=== PATIENT | female | born 1935 | race Caucasian/White ===

== ENCOUNTER 2016-06-27 15:11 | Inpatient (IN) ==
[2016-06-27] MEDS ORDERED: 0.9 % Sodium Chloride 1,000 ML IVC ONE (17:08)
--- NOTE | 2016-06-27 17:16 | Emergency Department Note ---
Disposition Clinical Impression: Anemia due to acute blood loss GI (gastrointestinal hemorrhage) Qualifiers: GI bleed type/associated pathology: unspecified gastrointestinal hemorrhage type Qualified Code(s): K92.2 - Gastrointestinal hemorrhage, unspecified Disposition: Admitted As Inpatient Condition: Good Time of Disposition: 18:40 Recheck wound or abnormal lab - General Chief Complaint: ED Recheck/Abnormal Lab/Rx Stated Complaint: abnormal labs Time Seen by Provider: 06/27/16 16:48 Source: patient Limitations: no limitations Nursing Notes Reviewed: Yes Vital Signs Reviewed: Yes - History of Present Illness HPI Narrative: 80-year-old female with history of diverticulosis currently being treated for diverticulitis presents to the emergency department for evaluation low hemoglobin, weakness, dizziness and shortness of breath. Patient states that she 's had numerous episodes like this in the past. Patient states that she hasn't had to be admitted and had transfusions previously. Patient states she's had multiple endoscopies and colonoscopies in the past 3 years. No one can seem to find exactly where her bleeding is coming from. Patient states that she began having some left lower quadrant abdominal pain and was seen by her PCP who obtained a CT scan which showed acute diverticulitis. Patient states she was started on antibiotics but has continued to have "burgundy colored stools". She denies any black stools or blood clots. She denies any nausea or vomiting. She denies any hematemesis. Patient does report some crampy left lower quadrant abdominal pain. Patient states she was not told how low her hemoglobin was told to come to the emergency department. On arrival, patient is resting comfortably in bed in no acute distress. She is awake, alert and oriented. Conjunctiva are pale. Mucous membranes are moist. Heart regular rate and rhythm. Her abdomen is soft with tenderness noted to the left lower quadrant. Rectal exam to be performed. Labs, type and screen ordered. Pt Subjective Complaint: abnormal lab(s) (Hemoglobin) Initial Visit (ago): day(s) Description of Abnormal Result: Low hemoglobin Symptoms Since Prior Visit: no new symptoms Context: called for abnormal lab result Associated symptoms: shortness of breath, other (Weakness) Treatments prior to arrival: given antibiotics on - Related Data Home Medications Medication Instructions Recorded Confirmed Acetaminophen [Tylenol] 325 mg PO Q6HR PRN 04/10/15 06/27/16 Aspirin Enteric Coated [Aspirin EC] 81 mg PO DAILY 04/10/15 06/27/16 Dexlansoprazole [Dexilant] 60 mg PO DAILY 04/10/15 06/27/16 Docosahexanoic Acid/Epa [Fish Oil 1,000 mg PO DAILY 04/10/15 06/27/16 Concentrate Softgel] Gabapentin [Neurontin] 800 mg PO TID 04/10/15 06/27/16 Multivitamin/Iron/Folic Acid 1 tab PO DAILY 04/10/15 06/27/16 [Centrum Complete Multivit Tab] Triamcinolone Acet 0.1% CRM 1 appl TP BID 07/12/15 06/27/16 [Kenalog] Calcium Carbonate [Calcium] 1,250 mg PO DAILY 03/19/16 06/27/16 L. Acidophilus/Pectin, [place] 1 cap PO DAILY 03/19/16 06/27/16 [Acidophilus Probiotic Capsule] Lidocaine 4% CRM (LMX) [Lmx 4] 1 appl TP BID PRN 03/19/16 06/27/16 Lisinopril [Zestril] 40 mg PO DAILY 03/19/16 06/27/16 Metoprolol XL (24 HR) Succ [Toprol 50 mg PO DAILY 03/19/16 06/27/16 Xl] Ferrous Sulfate [Iron] 325 mg PO BID 06/27/16 06/27/16 Hydrochlorothiazide 12.5 mg PO DAILY 06/27/16 06/27/16 Previous Rx's Medication Instructions Recorded HYDROcodone/Acet 5/325 mg [[place] 1 tab PO Q8HR PRN #10 tablet 03/25/16 5-325 mg] Allergies Allergy/AdvReac Type Severity Reaction Status Date / Time ketamine AdvReac Hallucinati Verified 07/12/15 19:39 ng meperidine [From Demerol] AdvReac Hypotension Verified 07/12/15 19:39 All systems ED: reviewed and negative except as stated. Constitutional: Denies: fever, chills Cardiovascular: Denies: chest pain, palpitations Respiratory: Denies: cough, dyspnea, wheezes Gastrointestinal: Reports: abdominal pain, hematochezia. Denies: nausea, vomiting Genitourinary: Denies: urgency, dysuria Musculoskeletal: Denies: back pain, neck pain Integumentary: Denies: rash Past Medical History - Past Medical History Medical history: Reports: arthritis, GERD, GI bleed, hyperlipidemia, hypertension, other Surgical history: Reports: knee replacement, orthopedic, other Psychiatric history: Reports: no psych history - Social History Smoking Status: Former smoker Smokeless Tobacco Status: No Alcohol use: Reports: none Drug use: Reports: none Physical Exam - General Limitations: no limitations General appearance: alert - Head Head exam: atraumatic, normocephalic, normal inspection - Eye Eye exam: Present: other (Conjunctival pallor) - Neck Neck exam: Present: normal inspection, full ROM, trachea midline - Chest Chest inspection: Present: normal inspection, symmetric chest wall rise - Respiratory Respiratory exam: Present: normal lung sounds bilaterally - Cardiovascular Cardiovascular exam: Present: regular rate, normal rhythm, normal heart sounds - Abdominal Exam Abdominal exam: Present: soft, Non-Tender. Absent: tenderness, distention, guarding, rebound, rigidity - Neurological Exam Neurological exam: Present: alert, oriented X3 - Skin Skin exam: Present: warm, dry, intact, normal color Course - Reevaluation(s) Reevaluation #1: Patient hemoglobin has continued to trend down to 7.8. Based on her clinical findings we will begin transfusion with 2 units packed red blood cells in addition to the hospital for further evaluation and treatment of GI bleeding and anemia. Time: 18:40 Vital Signs Temperature 97.8 F 06/27/16 15:29 Pulse Rate 88 06/27/16 15:29 Respiratory Rate 16 06/27/16 15:29 Blood Pressure 133/83 06/27/16 15:29 O2 Sat by Pulse Oximetry 100 06/27/16 15:29 Temperature 97.5 F L 06/28/16 15:37 Pulse Rate 55 06/28/16 15:37 Respiratory Rate 15 06/28/16 15:37 Blood Pressure 149/84 06/28/16 15:37 O2 Sat by Pulse Oximetry 99 06/28/16 15:37 Oxygen Delivery Oxygen Delivery Room Air Recheck wound or abnormal lab - Medical Records Medical records reviewed: Yes I reviewed the patient's medical records. - Lab Data Lab results reviewed: Yes I reviewed the patient's lab results. Result diagrams: 06/28/16 13:37 06/28/16 03:52 Lab Results 06/27/16 06/27/16 06/27/16 Range/Units 17:37 17:37 17:37 WBC 6.8 (4.3-11.1) K/mcL RBC 2.86 L (3.82-4.97) M/mcL Hgb 7.8 L (11.5-15.4) g/dL Hct 24.1 L (35.3-44.9) % MCV 84.3 (83.0-100.0) fL MCH 27.3 L (28.0-33.3) pg MCHC 32.4 (31.6-35.5) g/dL RDW 14.6 H (11.5-14.5) % Plt Count 215 (140-400) K/mcL MPV 8.6 L (9.4-12.4) fL Immature Gran % 0.3 (0-4) % Seg Neutrophils % 44.3 % Lymphocytes % 39.0 % Monocytes % 11.8 % Eosinophils % 3.7 % Basophils % 0.9 % Neutrophils # 3.0 (1.6-8.9) K/mcL Lymphocytes # 2.7 (0.6-4.6) K/mcL Monocytes # 0.8 (0.0-1.3) K/mcL Eosinophils # 0.3 (0.0-0.6) K/mcL Basophils # 0.1 (0.0-0.2) K/mcL PT (9.4-12.1) Seconds INR APTT (26.0-36.0) Seconds VBG pH (7.32-7.42) pH Units VBG pCO2 (41-51) mmHg VBG pO2 (25-40) mmHg VBG HCO3 (21-27) mEq/L Sodium 140 (136-145) mEq/L Potassium 4.5 (3.5-4.5) mEq/L Chloride 112 H (98-109) mEq/L Carbon Dioxide 19 (19-29) mEq/L BUN 24 H (7-20) mg/dL Creatinine 1.23 H (0.57-1.11) mg/dL Est GFR ( Amer) 51 L (> 60) Est GFR (Non-Af Amer) 42 L (> 60) BUN/Creatinine Ratio 20 (6-26) Glucose 103 H (70-99) mg/dL Calculated Osmolality 294 (280-300) Lactic Acid 1.1 (0.5-2.2) mmol/L Calcium 8.5 L (8.6-10.8) mg/dL Ionized Calcium (1.15-1.35) mmol/L Phosphorus (2.3-4.7) mg/dL Magnesium (1.6-2.6) mg/dL Iron (50-170) mcg/dL % Saturation (15-50) % Transferrin (180-382) mg/dL Total Bilirubin (0.2-1.2) mg/dL Direct Bilirubin (0.0-0.5) mg/dL Indirect Bilirubin (0.0-1.2) mg/dL AST (5-34) Units/L ALT (0-55) Units/L Alkaline Phosphatase (38-126) Units/L Troponin I (0-0.03) ng/mL C-Reactive Protein (Less than 5) mg/L Serum Total Protein (6.0-8.3) g/dL Albumin (3.5-5.0) g/dL Globulin (2.4-3.5) g/dL Albumin/Globulin Ratio (1.1-2.2) Triglycerides (< 150) mg/dL Cholesterol (< 200) mg/dL LDL Cholesterol, Calc (0-99) mg/dL VLDL Cholesterol, Calc (< 31) mg/dL HDL Cholesterol (40-59) mg/dL Cholesterol/HDL Ratio (0-4.9) Amylase (25-125) Units/L Lipase (8-78) Units/L TSH (0.350-4.840) mcIU/mL Urine Color (Yellow) Urine Clarity (Clear) Urine pH (5.0-8.0) pH Units Ur Specific [place] (1.010-1.025) Urine Protein (Neg-Trace) mg/dL Urine Glucose (UA) (Normal) mg/dL Urine Ketones (Negative) mg/dL Urine Blood (Negative) Urine Nitrite (Negative) Urine Bilirubin (Negative) Urine Urobilinogen (Normal) mg/dL Ur Leukocyte Esterase (Negative) Ur Culture Indicated? (NO) Stool Occult Blood (Negative) Blood Type Antibody Screen Crossmatch 06/27/16 06/27/16 06/27/16 Range/Units 17:37 17:37 20:40 WBC (4.3-11.1) K/mcL RBC (3.82-4.97) M/mcL Hgb (11.5-15.4) g/dL Hct (35.3-44.9) % MCV (83.0-100.0) fL MCH (28.0-33.3) pg MCHC (31.6-35.5) g/dL RDW (11.5-14.5) % Plt Count (140-400) K/mcL MPV (9.4-12.4) fL Immature Gran % (0-4) % Seg Neutrophils % % Lymphocytes % % Monocytes % % Eosinophils % % Basophils % % Neutrophils # (1.6-8.9) K/mcL Lymphocytes # (0.6-4.6) K/mcL Monocytes # (0.0-1.3) K/mcL Eosinophils # (0.0-0.6) K/mcL Basophils # (0.0-0.2) K/mcL PT 12.0 (9.4-12.1) Seconds INR 1.1 APTT 33.8 (26.0-36.0) Seconds VBG pH (7.32-7.42) pH Units VBG pCO2 (41-51) mmHg VBG pO2 (25-40) mmHg VBG HCO3 (21-27) mEq/L Sodium (136-145) mEq/L Potassium (3.5-4.5) mEq/L Chloride (98-109) mEq/L Carbon Dioxide (19-29) mEq/L BUN (7-20) mg/dL Creatinine (0.57-1.11) mg/dL Est GFR ( Amer) (> 60) Est GFR (Non-Af Amer) (> 60) BUN/Creatinine Ratio (6-26) Glucose (70-99) mg/dL Calculated Osmolality (280-300) Lactic Acid (0.5-2.2) mmol/L Calcium (8.6-10.8) mg/dL Ionized Calcium (1.15-1.35) mmol/L Phosphorus (2.3-4.7) mg/dL Magnesium (1.6-2.6) mg/dL Iron (50-170) mcg/dL % Saturation (15-50) % Transferrin (180-382) mg/dL Total Bilirubin (0.2-1.2) mg/dL Direct Bilirubin (0.0-0.5) mg/dL Indirect Bilirubin (0.0-1.2) mg/dL AST (5-34) Units/L ALT (0-55) Units/L Alkaline Phosphatase (38-126) Units/L Troponin I 0.01 (0-0.03) ng/mL C-Reactive Protein (Less than 5) mg/L Serum Total Protein (6.0-8.3) g/dL Albumin (3.5-5.0) g/dL Globulin (2.4-3.5) g/dL Albumin/Globulin Ratio (1.1-2.2) Triglycerides (< 150) mg/dL Cholesterol (< 200) mg/dL LDL Cholesterol, Calc (0-99) mg/dL VLDL Cholesterol, Calc (< 31) mg/dL HDL Cholesterol (40-59) mg/dL Cholesterol/HDL Ratio (0-4.9) Amylase (25-125) Units/L Lipase (8-78) Units/L TSH (0.350-4.840) mcIU/mL Urine Color (Yellow) Urine Clarity (Clear) Urine pH (5.0-8.0) pH Units Ur Specific [place] (1.010-1.025) Urine Protein (Neg-Trace) mg/dL Urine Glucose (UA) (Normal) mg/dL Urine Ketones (Negative) mg/dL Urine Blood (Negative) Urine Nitrite (Negative) Urine Bilirubin (Negative) Urine Urobilinogen (Normal) mg/dL Ur Leukocyte Esterase (Negative) Ur Culture Indicated? (NO) Stool Occult Blood (Negative) Blood Type O NEGATIVE Antibody Screen NEGATIVE Crossmatch See Detail 06/27/16 06/27/16 06/27/16 Range/Units 20:40 20:40 20:40 WBC (4.3-11.1) K/mcL RBC (3.82-4.97) M/mcL Hgb (11.5-15.4) g/dL Hct (35.3-44.9) % MCV (83.0-100.0) fL MCH (28.0-33.3) pg MCHC (31.6-35.5) g/dL RDW (11.5-14.5) % Plt Count (140-400) K/mcL MPV (9.4-12.4) fL Immature Gran % (0-4) % Seg Neutrophils % % Lymphocytes % % Monocytes % % Eosinophils % % Basophils % % Neutrophils # (1.6-8.9) K/mcL Lymphocytes # (0.6-4.6) K/mcL Monocytes # (0.0-1.3) K/mcL Eosinophils # (0.0-0.6) K/mcL Basophils # (0.0-0.2) K/mcL PT (9.4-12.1) Seconds INR APTT (26.0-36.0) Seconds VBG pH (7.32-7.42) pH Units VBG pCO2 (41-51) mmHg VBG pO2 (25-40) mmHg VBG HCO3 (21-27) mEq/L Sodium (136-145) mEq/L Potassium (3.5-4.5) mEq/L Chloride (98-109) mEq/L Carbon Dioxide (19-29) mEq/L BUN (7-20) mg/dL Creatinine (0.57-1.11) mg/dL Est GFR ( Amer) (> 60) Est GFR (Non-Af Amer) (> 60) BUN/Creatinine Ratio (6-26) Glucose (70-99) mg/dL Calculated Osmolality (280-300) Lactic Acid (0.5-2.2) mmol/L Calcium (8.6-10.8) mg/dL Ionized Calcium 1.10 L (1.15-1.35) mmol/L Phosphorus 5.1 H (2.3-4.7) mg/dL Magnesium 1.9 (1.6-2.6) mg/dL Iron (50-170) mcg/dL % Saturation (15-50) % Transferrin (180-382) mg/dL Total Bilirubin (0.2-1.2) mg/dL Direct Bilirubin (0.0-0.5) mg/dL Indirect Bilirubin (0.0-1.2) mg/dL AST (5-34) Units/L ALT (0-55) Units/L Alkaline Phosphatase (38-126) Units/L Troponin I 0.01 (0-0.03) ng/mL C-Reactive Protein 3 (Less than 5) mg/L Serum Total Protein (6.0-8.3) g/dL Albumin (3.5-5.0) g/dL Globulin (2.4-3.5) g/dL Albumin/Globulin Ratio (1.1-2.2) Triglycerides (< 150) mg/dL Cholesterol (< 200) mg/dL LDL Cholesterol, Calc (0-99) mg/dL VLDL Cholesterol, Calc (< 31) mg/dL HDL Cholesterol (40-59) mg/dL Cholesterol/HDL Ratio (0-4.9) Amylase (25-125) Units/L Lipase (8-78) Units/L TSH (0.350-4.840) mcIU/mL Urine Color (Yellow) Urine Clarity (Clear) Urine pH (5.0-8.0) pH Units Ur Specific [place] (1.010-1.025) Urine Protein (Neg-Trace) mg/dL Urine Glucose (UA) (Normal) mg/dL Urine Ketones (Negative) mg/dL Urine Blood (Negative) Urine Nitrite (Negative) Urine Bilirubin (Negative) Urine Urobilinogen (Normal) mg/dL Ur Leukocyte Esterase (Negative) Ur Culture Indicated? (NO) Stool Occult Blood (Negative) Blood Type Antibody Screen Crossmatch 06/27/16 06/27/16 06/28/16 Range/Units 20:40 Unknown 01:06 WBC (4.3-11.1) K/mcL RBC (3.82-4.97) M/mcL Hgb (11.5-15.4) g/dL Hct (35.3-44.9) % MCV (83.0-100.0) fL MCH (28.0-33.3) pg MCHC (31.6-35.5) g/dL RDW (11.5-14.5) % Plt Count (140-400) K/mcL MPV (9.4-12.4) fL Immature Gran % (0-4) % Seg Neutrophils % % Lymphocytes % % Monocytes % % Eosinophils % % Basophils % % Neutrophils # (1.6-8.9) K/mcL Lymphocytes # (0.6-4.6) K/mcL Monocytes # (0.0-1.3) K/mcL Eosinophils # (0.0-0.6) K/mcL Basophils # (0.0-0.2) K/mcL PT (9.4-12.1) Seconds INR APTT (26.0-36.0) Seconds VBG pH 7.31 L (7.32-7.42) pH Units VBG pCO2 48 (41-51) mmHg VBG pO2 31 (25-40) mmHg VBG HCO3 24.2 (21-27) mEq/L Sodium (136-145) mEq/L Potassium (3.5-4.5) mEq/L Chloride (98-109) mEq/L Carbon Dioxide (19-29) mEq/L BUN (7-20) mg/dL Creatinine (0.57-1.11) mg/dL Est GFR ( Amer) (> 60) Est GFR (Non-Af Amer) (> 60) BUN/Creatinine Ratio (6-26) Glucose (70-99) mg/dL Calculated Osmolality (280-300) Lactic Acid (0.5-2.2) mmol/L Calcium (8.6-10.8) mg/dL Ionized Calcium (1.15-1.35) mmol/L Phosphorus (2.3-4.7) mg/dL Magnesium (1.6-2.6) mg/dL Iron (50-170) mcg/dL % Saturation (15-50) % Transferrin (180-382) mg/dL Total Bilirubin (0.2-1.2) mg/dL Direct Bilirubin (0.0-0.5) mg/dL Indirect Bilirubin (0.0-1.2) mg/dL AST (5-34) Units/L ALT (0-55) Units/L Alkaline Phosphatase (38-126) Units/L Troponin I 0.00 (0-0.03) ng/mL C-Reactive Protein (Less than 5) mg/L Serum Total Protein (6.0-8.3) g/dL Albumin (3.5-5.0) g/dL Globulin (2.4-3.5) g/dL Albumin/Globulin Ratio (1.1-2.2) Triglycerides (< 150) mg/dL Cholesterol (< 200) mg/dL LDL Cholesterol, Calc (0-99) mg/dL VLDL Cholesterol, Calc (< 31) mg/dL HDL Cholesterol (40-59) mg/dL Cholesterol/HDL Ratio (0-4.9) Amylase (25-125) Units/L Lipase (8-78) Units/L TSH (0.350-4.840) mcIU/mL Urine Color (Yellow) Urine Clarity (Clear) Urine pH (5.0-8.0) pH Units Ur Specific [place] (1.010-1.025) Urine Protein (Neg-Trace) mg/dL Urine Glucose (UA) (Normal) mg/dL Urine Ketones (Negative) mg/dL Urine Blood (Negative) Urine Nitrite (Negative) Urine Bilirubin (Negative) Urine Urobilinogen (Normal) mg/dL Ur Leukocyte Esterase (Negative) Ur Culture Indicated? (NO) Stool Occult Blood Positive A (Negative) Blood Type Antibody Screen Crossmatch 06/28/16 06/28/16 06/28/16 Range/Units 02:35 03:52 03:52 WBC 6.0 (4.3-11.1) K/mcL RBC 3.37 L (3.82-4.97) M/mcL Hgb 9.2 L (11.5-15.4) g/dL Hct 28.4 L (35.3-44.9) % MCV 84.3 (83.0-100.0) fL MCH 27.3 L (28.0-33.3) pg MCHC 32.4 (31.6-35.5) g/dL RDW 14.5 (11.5-14.5) % Plt Count 181 (140-400) K/mcL MPV 8.6 L (9.4-12.4) fL Immature Gran % (0-4) % Seg Neutrophils % % Lymphocytes % % Monocytes % % Eosinophils % % Basophils % % Neutrophils # (1.6-8.9) K/mcL Lymphocytes # (0.6-4.6) K/mcL Monocytes # (0.0-1.3) K/mcL Eosinophils # (0.0-0.6) K/mcL Basophils # (0.0-0.2) K/mcL PT (9.4-12.1) Seconds INR APTT (26.0-36.0) Seconds VBG pH (7.32-7.42) pH Units VBG pCO2 (41-51) mmHg VBG pO2 (25-40) mmHg VBG HCO3 (21-27) mEq/L Sodium 140 (136-145) mEq/L Potassium 5.0 H (3.5-4.5) mEq/L Chloride 113 H (98-109) mEq/L Carbon Dioxide 21 (19-29) mEq/L BUN 21 H (7-20) mg/dL Creatinine 1.10 (0.57-1.11) mg/dL Est GFR ( Amer) 58 L (> 60) Est GFR (Non-Af Amer) 48 L (> 60) BUN/Creatinine Ratio 19 (6-26) Glucose 88 (70-99) mg/dL Calculated Osmolality 292 (280-300) Lactic Acid (0.5-2.2) mmol/L Calcium 8.5 L (8.6-10.8) mg/dL Ionized Calcium (1.15-1.35) mmol/L Phosphorus (2.3-4.7) mg/dL Magnesium (1.6-2.6) mg/dL Iron (50-170) mcg/dL % Saturation (15-50) % Transferrin (180-382) mg/dL Total Bilirubin (0.2-1.2) mg/dL Direct Bilirubin (0.0-0.5) mg/dL Indirect Bilirubin (0.0-1.2) mg/dL AST (5-34) Units/L ALT (0-55) Units/L Alkaline Phosphatase (38-126) Units/L Troponin I (0-0.03) ng/mL C-Reactive Protein (Less than 5) mg/L Serum Total Protein (6.0-8.3) g/dL Albumin (3.5-5.0) g/dL Globulin (2.4-3.5) g/dL Albumin/Globulin Ratio (1.1-2.2) Triglycerides 160 H (< 150) mg/dL Cholesterol 226 H (< 200) mg/dL LDL Cholesterol, Calc 159 H (0-99) mg/dL VLDL Cholesterol, Calc 32 H (< 31) mg/dL HDL Cholesterol 35 L (40-59) mg/dL Cholesterol/HDL Ratio 6.5 H (0-4.9) Amylase (25-125) Units/L Lipase (8-78) Units/L TSH (0.350-4.840) mcIU/mL Urine Color Yellow (Yellow) Urine Clarity Clear (Clear) Urine pH 6.0 (5.0-8.0) pH Units Ur Specific [place] 1.010 (1.010-1.025) Urine Protein Negative (Neg-Trace) mg/dL Urine Glucose (UA) Normal (Normal) mg/dL Urine Ketones Negative (Negative) mg/dL Urine Blood Negative (Negative) Urine Nitrite Negative (Negative) Urine Bilirubin Negative (Negative) Urine Urobilinogen Normal (Normal) mg/dL Ur Leukocyte Esterase Negative (Negative) Ur Culture Indicated? NO (NO) Stool Occult Blood (Negative) Blood Type Antibody Screen Crossmatch 06/28/16 06/28/16 06/28/16 Range/Units 03:52 03:52 03:52 WBC (4.3-11.1) K/mcL RBC (3.82-4.97) M/mcL Hgb (11.5-15.4) g/dL Hct (35.3-44.9) % MCV (83.0-100.0) fL MCH (28.0-33.3) pg MCHC (31.6-35.5) g/dL RDW (11.5-14.5) % Plt Count (140-400) K/mcL MPV (9.4-12.4) fL Immature Gran % (0-4) % Seg Neutrophils % % Lymphocytes % % Monocytes % % Eosinophils % % Basophils % % Neutrophils # (1.6-8.9) K/mcL Lymphocytes # (0.6-4.6) K/mcL Monocytes # (0.0-1.3) K/mcL Eosinophils # (0.0-0.6) K/mcL Basophils # (0.0-0.2) K/mcL PT (9.4-12.1) Seconds INR APTT (26.0-36.0) Seconds VBG pH (7.32-7.42) pH Units VBG pCO2 (41-51) mmHg VBG pO2 (25-40) mmHg VBG HCO3 (21-27) mEq/L Sodium (136-145) mEq/L Potassium (3.5-4.5) mEq/L Chloride (98-109) mEq/L Carbon Dioxide (19-29) mEq/L BUN (7-20) mg/dL Creatinine (0.57-1.11) mg/dL Est GFR ( Amer) (> 60) Est GFR (Non-Af Amer) (> 60) BUN/Creatinine Ratio (6-26) Glucose (70-99) mg/dL Calculated Osmolality (280-300) Lactic Acid 1.2 (0.5-2.2) mmol/L Calcium (8.6-10.8) mg/dL Ionized Calcium (1.15-1.35) mmol/L Phosphorus (2.3-4.7) mg/dL Magnesium (1.6-2.6) mg/dL Iron 334 H (50-170) mcg/dL % Saturation 76 H (15-50) % Transferrin 313 (180-382) mg/dL Total Bilirubin 0.4 (0.2-1.2) mg/dL Direct Bilirubin 0.1 (0.0-0.5) mg/dL Indirect Bilirubin 0.3 (0.0-1.2) mg/dL AST 32 (5-34) Units/L ALT 22 (0-55) Units/L Alkaline Phosphatase 67 (38-126) Units/L Troponin I (0-0.03) ng/mL C-Reactive Protein (Less than 5) mg/L Serum Total Protein 5.9 L (6.0-8.3) g/dL Albumin 3.2 L (3.5-5.0) g/dL Globulin 2.7 (2.4-3.5) g/dL Albumin/Globulin Ratio 1.2 (1.1-2.2) Triglycerides (< 150) mg/dL Cholesterol (< 200) mg/dL LDL Cholesterol, Calc (0-99) mg/dL VLDL Cholesterol, Calc (< 31) mg/dL HDL Cholesterol (40-59) mg/dL Cholesterol/HDL Ratio (0-4.9) Amylase 46 (25-125) Units/L Lipase 19 (8-78) Units/L TSH 3.015 (0.350-4.840) mcIU/mL Urine Color (Yellow) Urine Clarity (Clear) Urine pH (5.0-8.0) pH Units Ur Specific [place] (1.010-1.025) Urine Protein (Neg-Trace) mg/dL Urine Glucose (UA) (Normal) mg/dL Urine Ketones (Negative) mg/dL Urine Blood (Negative) Urine Nitrite (Negative) Urine Bilirubin (Negative) Urine Urobilinogen (Normal) mg/dL Ur Leukocyte Esterase (Negative) Ur Culture Indicated? (NO) Stool Occult Blood (Negative) Blood Type Antibody Screen Crossmatch 06/28/16 06/28/16 Range/Units 07:50 07:50 WBC (4.3-11.1) K/mcL RBC (3.82-4.97) M/mcL Hgb 8.8 L (11.5-15.4) g/dL Hct 27.4 L (35.3-44.9) % MCV (83.0-100.0) fL MCH (28.0-33.3) pg MCHC (31.6-35.5) g/dL RDW (11.5-14.5) % Plt Count (140-400) K/mcL MPV (9.4-12.4) fL Immature Gran % (0-4) % Seg Neutrophils % % Lymphocytes % % Monocytes % % Eosinophils % % Basophils % % Neutrophils # (1.6-8.9) K/mcL Lymphocytes # (0.6-4.6) K/mcL Monocytes # (0.0-1.3) K/mcL Eosinophils # (0.0-0.6) K/mcL Basophils # (0.0-0.2) K/mcL PT (9.4-12.1) Seconds INR APTT (26.0-36.0) Seconds VBG pH (7.32-7.42) pH Units VBG pCO2 (41-51) mmHg VBG pO2 (25-40) mmHg VBG HCO3 (21-27) mEq/L Sodium (136-145) mEq/L Potassium (3.5-4.5) mEq/L Chloride (98-109) mEq/L Carbon Dioxide (19-29) mEq/L BUN (7-20) mg/dL Creatinine (0.57-1.11) mg/dL Est GFR ( Amer) (> 60) Est GFR (Non-Af Amer) (> 60) BUN/Creatinine Ratio (6-26) Glucose (70-99) mg/dL Calculated Osmolality (280-300) Lactic Acid (0.5-2.2) mmol/L Calcium (8.6-10.8) mg/dL Ionized Calcium (1.15-1.35) mmol/L Phosphorus (2.3-4.7) mg/dL Magnesium (1.6-2.6) mg/dL Iron (50-170) mcg/dL % Saturation (15-50) % Transferrin (180-382) mg/dL Total Bilirubin (0.2-1.2) mg/dL Direct Bilirubin (0.0-0.5) mg/dL Indirect Bilirubin (0.0-1.2) mg/dL AST (5-34) Units/L ALT (0-55) Units/L Alkaline Phosphatase (38-126) Units/L Troponin I 0.01 (0-0.03) ng/mL C-Reactive Protein (Less than 5) mg/L Serum Total Protein (6.0-8.3) g/dL Albumin (3.5-5.0) g/dL Globulin (2.4-3.5) g/dL Albumin/Globulin Ratio (1.1-2.2) Triglycerides (< 150) mg/dL Cholesterol (< 200) mg/dL LDL Cholesterol, Calc (0-99) mg/dL VLDL Cholesterol, Calc (< 31) mg/dL HDL Cholesterol (40-59) mg/dL Cholesterol/HDL Ratio (0-4.9) Amylase (25-125) Units/L Lipase (8-78) Units/L TSH (0.350-4.840) mcIU/mL Urine Color (Yellow) Urine Clarity (Clear) Urine pH (5.0-8.0) pH Units Ur Specific [place] (1.010-1.025) Urine Protein (Neg-Trace) mg/dL Urine Glucose (UA) (Normal) mg/dL Urine Ketones (Negative) mg/dL Urine Blood (Negative) Urine Nitrite (Negative) Urine Bilirubin (Negative) Urine Urobilinogen (Normal) mg/dL Ur Leukocyte Esterase (Negative) Ur Culture Indicated? (NO) Stool Occult Blood (Negative) Blood Type Antibody Screen Crossmatch - Radiology Data Radiology results reviewed: Yes I reviewed the patient's radiology results. - EKG Data EKG attestation: Yes I reviewed and interpreted this EKG. EKG shows normal: sinus rhythm Rate: normal Rhythm: NSR [place]/QRS: normal Interpretation: no acute changes Critical Care Time Critical Care Time: Yes Total Critical Care Time: 40 Attestation: Critical care performed: Time is exclusive of separately billable procedures. Time includes: direct patient care, patient reassessment, coordination of patient care, interpretation of data (laboratory data, radiology data, and respiratory data), review of patient's medical records, medical consultation and documentation of patient care. Procedures included in critical care time: Procedures excluded from critical care time: Attestation Statement - Attestation Attestation: I examined this patient and my medical decision-making was reviewed with the ELEMENTARY ELL TEACHER/PA/Advanced Practice Nurse/Resident Physician. I agree with the documented findings, disposition and treatment plan as described except to the extent set forth below. Patient presents to the emergency department with a chief complaint a low hemoglobin. It was checked as an outpatient and she states it was 8. A shows a history of bleeding diverticulitis. I was in March and she was admitted. Her hemoglobin was 8 at that time and she required a transfusion. She states that he got up to 10 since then but has dropped again when she started passing maroon colored stools and having left lower quadrant pain a week ago. They started her on Cipro Flagyl. Exam shows her no distress with left lower quadrant tenderness. Plan. Labs will type and cross and CT abdomen and pelvis. Hemoglobin is 7 the patient is symptomatic. Transfusion begun in emergency department. Admitted to medicine.
[2016-06-27 17:52] LABS: Basophils # 0.1 K/mcL (0.0-0.2); Basophils % 0.9 %; Eosinophils # 0.3 K/mcL (0.0-0.6); Eosinophils % 3.7 %; Hematocrit 24.1 % (35.3-44.9); Hemoglobin 7.8 g/dL (11.5-15.4); Immature Granulocytes % 0.3 % (0-4); Lymphocytes # 2.7 K/mcL (0.6-4.6); Mean Corpuscular HGB Conc 32.4 g/dL (31.6-35.5); Mean Corpuscular Hemoglobin 27.3 pg (28.0-33.3); Mean Corpuscular Volume 84.3 fL (83.0-100.0); Mean Platelet Volume 8.6 fL (9.4-12.4); Monocytes # 0.8 K/mcL (0.0-1.3); Monocytes % 11.8 %; Platelet Count 215 K/mcL (140-400); Red Blood Count 2.86 M/mcL (3.82-4.97); Red Cell Distribution Width 14.6 % (11.5-14.5); Segmented Neutrophils % 44.3 %
[2016-06-27 18:12] LABS: Calcium 8.5 mg/dL (8.6-10.8); Potassium 4.5 mEq/L (3.5-4.5)
[2016-06-27] MEDS ORDERED: 0.9 % Sodium Chloride 1,000 ML ONE (18:57)
[2016-06-27] MEDS ORDERED: Naloxone 0.4 MG/ML INJ IVP PRN (19:46)
[2016-06-27] MEDS ORDERED: *HR* Morphine 2 MG/ML SYRINGE IVP PRN (19:46)
[2016-06-27] MEDS ORDERED: *HR* OxyCODONE Immed Rel 5 MG TABLET PO PRN (19:46)
[2016-06-27] MEDS ORDERED: Mag Hydrox/Al Hydrox/Simeth 30 ML UDC PO PRN (19:46)
[2016-06-27] MEDS ORDERED: Acetaminophen 325 MG TABLET PO PRN (19:46)
[2016-06-27] MEDS ORDERED: *HR* Promethazine 25 MG/ML VIAL IVP PRN (19:46)
[2016-06-27] MEDS ORDERED: Pantoprazole 80 MG in 0.9 % Sodium Chloride 50 ML IVPB ONE (19:54)
[2016-06-27] MEDS ORDERED: Octreotide 50 MCG/ML SYRINGE IVP ONE (19:57)
[2016-06-27] MEDS ORDERED: Octreotide 400 MCG in 0.9 % Sodium Chloride 100 ML IVC SCH (19:57)
[2016-06-27] MEDS ORDERED: 0.9 % Sodium Chloride 1,000 ML IVC STA (19:57)
[2016-06-27] MEDS ORDERED: 0.9 % Sodium Chloride 1,000 ML IVC SCH (20:00)
--- NOTE | 2016-06-27 20:06 | Internal Med History&Physical ---
Date of Encounter: 06/27/16 Time of Encounter: 19:00 Assessment and Plan (1) Symptomatic anemia Status: Acute . (2) Iron deficiency anemia due to chronic blood loss Status: Chronic . (3) 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 Status: Chronic . (4) Gastrointestinal hemorrhage with melena Status: Acute . 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 (6) Obesity (BMI 30-39.9) Status: Chronic . (7) Acute abdominal pain in left lower quadrant Status: Acute . (8) Dyslipidemia Status: Chronic . (9) Acute diverticulitis Status: Ruled-out . (10) HTN (hypertension) Status: Chronic . Qualifiers: Hypertension type: essential hypertension Qualified Code(s): I10 - Essential (primary) hypertension (11) History of DVT (deep vein thrombosis) Status: Chronic . (12) Blood transfusion during current hospitalization Status: Acute . Internal Medicine - H&P: HPI Chief complaint: Generalized weakness. Admitted From: Emergency Dept Plans for Post Hospital Care: Home History of present illness: Ms. Chris is a 80 year old female with history significant for valvular heart disease (aortic sclerosis with borderline , moderate AR) diastolic CHF/CMP LVEF 60%, OPD/FELY (CPAP noncompliant), hypertension, dyslipidemia, osteoarthritis, osteoporosis, H/O DVT/IVC filter, cardiac arrhythmia unspecified /frequent PVCs, GERD, recurrent GI bleeds unspecified, iron deficiency, anemia chronic disease, recurrent lower extremity cellulitis/venous stasis dermatitis, diverticular disease/diverticulitis, chronic musculoskeletal pain, vitamin D deficiency, obesity with deconditioning, former smoker. The patient was visited and interviewed and examined. Patient was admitted to [facility] via the emergency department at the request of patient's primary care physician. The patient has underlying history of diverticular disease with recurrent bouts of diverticulitis. She reports a current outpatient management for a recent flare of acute diverticulitis. Evaluation in the outpatient setting of her blood revealed evidence for a low hemoglobin with direction from her PCP to present for evaluation and treatment. She acknowledges associated generalized weakness periodic positional dizziness lightheadedness and exertional shortness of breath with mild to moderate activity. She reports numerous episodes of acute diverticular disease exacerbation with associated GI blood loss and associated symptomatic anemia. However in the past some she has not required admission for treatment of such responding to outpatient therapy is. Nor has she required transfusion therapy for symptomatic acute blood loss. She reports multiple upper and lower endoscopies in the past 3 years for her gastrointestinal symptoms. The primary site of recurrent GI blood loss has not been found. Patient reports that she began experiencing left lower quadrant abdominal pain several days prior to ER presentation. She was seen by her PCP who had obtained a CT scan which confirmed the diagnosis for acute diverticulitis. She was started on antibiotics (Cipro and Flagyl) but has continued to experience abdominal discomfort and burgundy colored stools. She denies any black stools or blood clot passage. She is not currently on any ongoing anticoagulation or antiplatelet therapy. She does take oral iron therapy. Denies any symptoms of nausea vomiting or diarrhea. SHe is not constipated. She has not experienced any hematemesis or hemoptysis epistaxis. She does report some crampy left lower quadrant abdominal pain. SHe rated this at a 3-5/10 severity. She denies chest pain and syncopal or presyncopal symptoms. The orthopnea or edema. Denies any upper respiratory complaints ingestion of wheezing and cough sick contacts. Denies any hematuria dysuria flank pain. Denies any cutaneous stigmata or rash. Denies any history of C. difficile colitis or infectious enterocolitis. Denies any recent changes in prescribed the daily medical therapy. SHe is a former smoker. Findings in the ED: temperature 97.8 pulse 67 -88 respirations 16 BP 130-139/62-83 O2 saturation is 100% room air. WBC 6.8 hemoglobin 7.8 hematocrit 24.1 platelets 215,000. MCH 27.3. RDW 14.6. MPV 8.6. Differential is normal. Metabolic panel chloride of 112 BUN 24 creatinine 1.23 GFR 42 glucose 103 osmolality 294 calcium 8.5. Lactic acid 1.1. Troponin 0.01. EKG demonstrated normal sinus rhythm. No acute ischemic changes. (Trending of Hbg measurements between March 2016 to current presentation Hbgs consistently ran between 7.0 and 8.9. Last normal Hbg of 13.2 was measured in April 2015. There was a steady decline following this measurement of uncertain cause). Preliminary impression suggest acute, recurrent gastrointestinal bleeding and the patient with the long history of similar episodes of cryptogenic gastrointestinal bleeding of uncertain source. Presentation is complicated by known diverticular disease with acute diverticulitis with recent failure of outpatient management. Acute on chronic blood loss anemia is present with associated symptoms and signs. The patient has known iron deficiency and in spite of ongoing oral iron therapy red blood cell indices and RDW continues to suggest persistence of this. Acute on chronic kidney injury due to relative dehydration suggests that with rehydration her current hemoglobin measurement may actually be much lower than the 7.8 at the time of presentation. Vital signs overall are stable and examination reveals no focus of infection, abscess, hematoma or uncontrolled bleeding. Her presenting concerns and clinical history, especially given advanced age and comorbidities, the patient is at increased risk for further acute clinical decline and morbidity. The treatments will proceed comprehensively. Cumulative laboratory and radiographic data base was reviewed, considered and discussed. Pertinent ancillary medical records including ECW and PCI documentation, when available, was reviewed and considered. Given the patient's presenting concerns, past medical history, clinical findings and symptoms, she is admitted at this time will undergo further evaluation and disposition. Orders were written as per the computerized physician order worker system.......................................................................... .................... Consultative opinions will be sought as clinical circumstances justify. Initial consultative opinion has been requested of gastroenterology. Pain management needs will be addressed. Laboratory and radiographic data base will be updated as appropriate. Studies include: Hemoccult stool, cardiac injury panel, BNP, metabolic and hematologic panel, magnesium, phosphorus, ionized calcium, thyroid panel, place, lipase, lipid profile, A1c, C-peptide, CRP, sedimentation rate, type and screen, coagulation panel, blood gas, lactic acid, U/A, iron studies, B12, folic acid, serologies, etc. Precautions: Aspiration, fall, delirium protocol/surveillance initiated. Telemetry with continuous hemodynamic monitoring and pulse oximetry initiated. Orthostatic vital signs. Empiric antibody coverage: Intravenous ciprofloxacin and metronidazole pending culture data. Special studies: CT abdomen/pelvis, chest x-ray, telemetry, EKG. Pulmonary toilet: Incentive spirometry. When necessary aerosol bronchodilator, mucolytic, antitussive. Supplemental oxygen. When necessary corticosteroid therapy. CPAP/BiPAP supplemental oxygen delivery prn. Aerosol Mucomyst therapy prn. Fluid and electrolyte repletion efforts will proceed. Careful attention to fluid balance and renal recovery will be emphasized. Avoidance of nephrotoxic exposure and adverse drug drug interaction in the setting of impaired renal function will be monitored closely. Acute coronary syndrome protocol/surveillance initiated. Bowel rest imposed. Nothing per mouth advancing to clear liquids as clinical status permits. Antiemetic, prokinetic, probiotic therapy is initiated. Intravenous Protonix loading dose plus Protonix drip initiated. Intravenous octreotide loading dose plus octreotide drip initiated. DVT and PUD prophylaxis initiated: PPI therapy, intermittent pneumatic cuffs. Subcutaneous heparin/lovenox was held due to. Early ambulation will be encouraged. Immunization updates recommended. Influenza and pneumococcal vaccinations as part of ongoing preventative healthcare recommendations strongly recommended. Smoking cessation counseling briefly addressed. Patient is a former smoker. Advanced care directive discussion briefly addressed. Patient does not declare any healthcare restrictions at this time. Cardiovascular risk appraisal and cardiovascular risk reduction efforts will be emphasized. Physical and occupational therapy may be consulted to assess patient's functional capacity and progress mobility as circumstances permit. Outpatient medication schedules will be reviewed confirmed and facilitated as appropriate. Reconciliation of home treatments including adjustments, substitutions and reintroduction into the treatment regimen will address necessary maintenance therapies for chronic pre-existing medical conditions. Plan of care has been reviewed and discussed in detail with the patient. Questions addressed. Hospital course will depend upon collective clinical findings, treatment response and potential consultative interventions. Patient is at risk for further acute clinical decline and morbidity due to her advanced age, presenting chief complaints, clinical findings and comorbidities. Condition is serious. Prognosis is cautiously optimistic. CODE STATUS is full. Past Med Surg Social Fam HX - Past Medical History Source: old records reviewed Medical history: arthritis (Osteoarthritis. Trochanteric bursitis with iliotibial band syndrome, proximally and distally. Bilateral shoulder pain with pleuritic pain or cuff tendinopathy.), COPD (Obstructive sleep apnea.), DVT , GERD, GI bleed, hyperlipidemia, hypertension, osteoporosis, SVT (H/O cardiac arrhythmias unspecified. Frequent PVCs.), venous stasis (Recurrent lower extremity cellulitis.), other (Chronic blood loss anemia. Iron deficiency. Diverticular disease. Chronic pain syndrome. Vitamin D deficiency. Obesity with deconditioning.) Psychiatric history: no psych history - Past Surgical History Surgical History: breast surgery (Breast biopsy x2(left).), cataract (Bilateral. ), knee replacement, orthopedic, other (Plan the replacements. Bilateral carpal tunnel surgeries.), other (IVC filter placement. Multiple EGDs. Multiple colonoscopies. History of D&C 3.) - Social History Smoking Status: Former smoker (Previously smoked 2 packs per day for 15 years. Accident since 2014.) Smokeless Tobacco Status: No Alcohol use: none Drug use: none Occupational status: retired Current living situation: Home - Independent (. 1 para 1.) Activity Level: Independent ambulation, Mostly sedentary Recent Out of Country Travel Within the Last 8 Weeks: No Exposure or Possible Exposure to Illness During Travel: No - Family History Mother Age at : 62 Hx Family Neurologic Disorders: Yes Father Age at : 95 Hx Family Cardiac Disorders: Yes Internal Medicine - H&P: Meds Acetaminophen [Tylenol] 325 mg PO Q6HR PRN 04/10/15 [History] Aspirin Enteric Coated [Aspirin EC] 81 mg PO DAILY 04/10/15 [History] Dexlansoprazole [Dexilant] 60 mg PO DAILY 04/10/15 [History] Docosahexanoic Acid/Epa [Fish Oil Concentrate Softgel] 1,000 mg PO DAILY [History] Gabapentin [Neurontin] 800 mg PO TID 04/10/15 [History] Multivitamin/Iron/Folic Acid [Centrum Complete Multivit Tab] 1 tab PO DAILY 07/24 [History] Triamcinolone Acet 0.1% CRM [Kenalog] 1 appl TP BID 07/12/15 [History] Calcium Carbonate [Calcium] 1,250 mg PO DAILY 03/19/16 [History] L. Acidophilus/Pectin, Nye [Acidophilus Probiotic Capsule] 1 cap PO DAILY 04/24 [History] Lidocaine 4% CRM (LMX) [Lmx 4] 1 appl TP BID PRN 03/19/16 [History] Lisinopril [Zestril] 40 mg PO DAILY 03/19/16 [History] Metoprolol XL (24 HR) Succ [Toprol Xl] 50 mg PO DAILY 03/19/16 [History] HYDROcodone/Acet 5/325 mg [Agra 5-325 mg] 1 tab PO Q8HR PRN #10 tablet [Rx] Ferrous Sulfate [Iron] 325 mg PO BID 06/27/16 [History] Hydrochlorothiazide 12.5 mg PO DAILY 06/27/16 [History] Allergies ketamine Adverse Reaction (Verified 07/12/15 19:39) Hallucinating meperidine [From Demerol] Adverse Reaction (Verified 07/12/15 19:39) Hypotension All Systems PM: A 10-system review of systems was performed and is negative for pertinent findings except as documented above in the HPI. - Constitutional Constitutional: as per HPI, malaise, weakness, other, no chills, no fever(s), no night sweats - EENT Eyes: as per HPI, no change in vision, no discharge, no pain, no photophobia Ears: as per HPI, no ear discharge, no ear pain, no tinnitus Nose, mouth and throat: as per HPI, other, no bleeding gums, no dysphagia, no epistaxis, no nasal discharge, no neck pain, no sore throat - Cardiovascular Cardiovascular ROS IM: as per HPI, dyspnea on exertion, lightheadedness, no chest pain, no claudication, no diaphoresis, no dyspnea, no palpitations, no syncope - Respiratory Respiratory: as per HPI, dyspnea on exertion, no cough, no dyspnea, no hemoptysis, no wheezing, no pain on inspiration, no excessive phlegm production , no change in phlegm color, no pain with cough - Gastrointestinal Gastrointestinal: as per HPI, abdominal pain, bloating, change in stool character, cramping, hematochezia, melena, no coffee ground emesis, no constipation, no diarrhea, no dyspepsia, no fecal incontinence, no heartburn, no hematemesis, no nausea, no tenesmus, no vomiting - Genitourinary Genitourinary: as per HPI, no change in urinary stream, no dysuria, no flank pain, no hematuria - Musculoskeletal Musculoskeletal ROS IM: as per HPI, no numbness, no tingling - Integumentary Integumentary IM: as per HPI, no rash, no unusual bruising - Neurological Neurological ROS: as per HPI, dizziness, weakness, other, no confusion, no convulsions, no focal weakness, no numbness, no tingling, no tremor(s) - Psychiatric Psychiatric: as per HPI - Endocrine Endocrine IM: as per HPI - Hematologic/Lymphatic Hematologic/Lymphatic: as per HPI, no easy bleeding, no easy bruising - Allergic/Immunologic Allergic/Immunologic: as per HPI - Constitutional Vitals: Temp Pulse Resp BP Pulse Ox 98.3 F 71 18 139/63 98 06/27/16 19:22 06/27/16 19:47 06/27/16 19:54 06/27/16 19:54 06/27/16 19:47 General appearance: Present: cooperative, mild distress, A&O X 3, obese, answers questions appropriately - Head Head exam: Present: atraumatic, normal inspection, normocephalic - Eye Eye exam: Present: EOMI, PERRL, conjuntiva pink, sclera anicteric Pupils: Present: normal accommodation, PERRL - ENT ENT exam: Present: mucous membranes moist, normal external ear exam, normal oropharynx - Neck Neck exam general surgery: Present: full ROM, supple, trachea midline. Absent: lymphadenopathy, tenderness, nuchal rigidity - Respiratory Respiratory exam: Present: decreased breath sounds, CTAB. Absent: accessory muscle use, rales, rhonchi, wheezes - Cardiovascular Cardiovascular exam: Present: distant heart sounds, RRR, +S1, +S2. Absent: diastolic murmur, gallop, rubs, systolic murmur - GI/Abdominal GI/Abdominal exam: Present: diminished bowel sounds, soft, no peritoneal signs. Absent: distended, tenderness - Extremities Exam Extremities exam: Present: full ROM, warm, radial pulses palpable and symetrical. Absent: calf tenderness, cyanotic, pedal edema - Neurological Exam Neurological exam: Present: alert, CN II-XII intact, oriented X3, no focal deficits. Absent: pronater drift, facial droop, speech deficit - Psychiatric Psychiatric exam: Present: normal affect, normal mood - Skin Skin exam: Present: dry, intact, pallor, warm. Absent: petechiae, rash, urticaria, vesicles Internal Med - H&P Results - Labs CBC & Chem 7: 06/28/16 13:37 06/28/16 03:52 - Impressions Vital Signs Temp Pulse Resp BP Pulse Ox 06/27/16 19:54 18 139/63 06/27/16 19:47 71 18 139/63 98 06/27/16 19:22 98.3 F 68 18 135/91 06/27/16 19:07 98.2 F 67 18 135/57 06/27/16 18:11 67 16 139/62 100 06/27/16 15:29 97.8 F 88 16 133/83 100 Intake and Output 06/27/16 06/27/16 06/27/16 07:59 15:59 23:59 Intake Total 1350 / 1350 Balance 1350 / 1350 Intake: IV Fluids 1000 / 1000 0.9 % Sodium Chloride 1, 1000 / 1000 000 ML @ 3750 mls/hr IVC .Q16M ONE Rx#:[id number] Blood Product 350 / 350 Rbcs Leuko Poor As-3 Ph 350 / 350 Unit [id number] Other: Weight 81.647 kg Patient Weight 06/27/16 23:59 Weight 81.647 kg Short CBC 06/27/16 Range/Units 17:37 WBC 6.8 (4.3-11.1) K/mcL Hgb 7.8 L (11.5-15.4) g/dL Hct 24.1 L (35.3-44.9) % Plt Count 215 (140-400) K/mcL Neutrophils # 3.0 (1.6-8.9) K/mcL BMP 06/27/16 Range/Units 17:37 Sodium 140 (136-145) mEq/L Potassium 4.5 (3.5-4.5) mEq/L Chloride 112 H (98-109) mEq/L Carbon Dioxide 19 (19-29) mEq/L BUN 24 H (7-20) mg/dL Creatinine 1.23 H (0.57-1.11) mg/dL Glucose 103 H (70-99) mg/dL Calcium 8.5 L (8.6-10.8) mg/dL Cardiac Enzymes 06/27/16 Range/Units 17:37 Troponin I 0.01 (0-0.03) ng/mL Abnormal lab results RBC 2.86 M/mcL (3.82-4.97) L 06/27/16 17:37 Hgb 7.8 g/dL (11.5-15.4) L 06/27/16 17:37 Hct 24.1 % (35.3-44.9) L 06/27/16 17:37 MCH 27.3 pg (28.0-33.3) L 06/27/16 17:37 RDW 14.6 % (11.5-14.5) H 06/27/16 17:37 MPV 8.6 fL (9.4-12.4) L 06/27/16 17:37 Chloride 112 mEq/L (98-109) H 06/27/16 17:37 BUN 24 mg/dL (7-20) H 06/27/16 17:37 Creatinine 1.23 mg/dL (0.57-1.11) H 06/27/16 17:37 Est GFR ( Amer) 51 (> 60) L 06/27/16 17:37 Est GFR (Non-Af Amer) 42 (> 60) L 06/27/16 17:37 Glucose 103 mg/dL (70-99) H 06/27/16 17:37 Calcium 8.5 mg/dL (8.6-10.8) L 06/27/16 17:37 Stool Occult Blood Positive (Negative) A 06/27/16 Unknown Allergies Allergy/AdvReac Type Severity Reaction Status Date / Time ketamine AdvReac Hallucinati Verified 07/12/15 19:39 ng meperidine [From Demerol] AdvReac Hypotension Verified 07/12/15 19:39 Laboratory Results WBC 6.8 K/mcL (4.3-11.1) 06/27/16 17:37 RBC 2.86 M/mcL (3.82-4.97) L 06/27/16 17:37 Hgb 7.8 g/dL (11.5-15.4) L 06/27/16 17:37 Hct 24.1 % (35.3-44.9) L 06/27/16 17:37 MCV 84.3 fL (83.0-100.0) 06/27/16 17:37 MCH 27.3 pg (28.0-33.3) L 06/27/16 17:37 MCHC 32.4 g/dL (31.6-35.5) 06/27/16 17:37 RDW 14.6 % (11.5-14.5) H 06/27/16 17:37 Plt Count 215 K/mcL (140-400) 06/27/16 17:37 MPV 8.6 fL (9.4-12.4) L 06/27/16 17:37 Immature Gran % 0.3 % (0-4) 06/27/16 17:37 Seg Neutrophils % 44.3 % 06/27/16 17:37 Lymphocytes % 39.0 % 06/27/16 17:37 Monocytes % 11.8 % 06/27/16 17:37 Eosinophils % 3.7 % 06/27/16 17:37 Basophils % 0.9 % 06/27/16 17:37 Neutrophils # 3.0 K/mcL (1.6-8.9) 06/27/16 17:37 Lymphocytes # 2.7 K/mcL (0.6-4.6) 06/27/16 17:37 Monocytes # 0.8 K/mcL (0.0-1.3) 06/27/16 17:37 Eosinophils # 0.3 K/mcL (0.0-0.6) 06/27/16 17:37 Basophils # 0.1 K/mcL (0.0-0.2) 06/27/16 17:37 Sodium 140 mEq/L (136-145) 06/27/16 17:37 Potassium 4.5 mEq/L (3.5-4.5) 06/27/16 17:37 Chloride 112 mEq/L (98-109) H 06/27/16 17:37 Carbon Dioxide 19 mEq/L (19-29) 06/27/16 17:37 BUN 24 mg/dL (7-20) H 06/27/16 17:37 Creatinine 1.23 mg/dL (0.57-1.11) H 06/27/16 17:37 Est GFR ( Amer) 51 (> 60) L 06/27/16 17:37 Est GFR (Non-Af Amer) 42 (> 60) L 06/27/16 17:37 BUN/Creatinine Ratio 20 (6-26) 06/27/16 17:37 Glucose 103 mg/dL (70-99) H 06/27/16 17:37 Calculated Osmolality 294 (280-300) 06/27/16 17:37 Lactic Acid 1.1 mmol/L (0.5-2.2) 06/27/16 17:37 Calcium 8.5 mg/dL (8.6-10.8) L 01/19/17 17:37 Troponin I 0.01 ng/mL (0-0.03) 06/27/16 17:37 Stool Occult Blood Positive (Negative) A 06/27/16 Unknown Blood Type O NEGATIVE 06/27/16 17:37 Antibody Screen NEGATIVE 06/27/16 17:37 Crossmatch See Detail 06/27/16 17:37 Impressions Abdomen/Pelvis CT 06/27/16 17:21 IMPRESSION: No evidence of obstructive uropathy. D/ / Aaron Ha MD / Aaron Ha MD Interpreting Provider: Aaron Ha MD
[2016-06-27 20:57] LABS: VBG HCO3 24.2 mEq/L (21-27); VBG PH 7.31 pH Units (7.32-7.42)
[2016-06-27 21:02] LABS: Ionized Calcium 1.1 mmol/L (1.15-1.35)
[2016-06-27 21:05] LABS: INR 1.1
[2016-06-27 21:06] LABS: Magnesium 1.9 mg/dL (1.6-2.6); Phosphorous 5.1 mg/dL (2.3-4.7)
[2016-06-27 21:07] LABS: Activated Partial Thrombo Time 33.8 Seconds (26.0-36.0)
[2016-06-27] MEDS ORDERED: Calcium Gluconate 1,000 MG in D5% in Water 100 ML IVPB ONE (21:13)
[2016-06-27] MEDS: Gabapentin 400 MG CAPSULE PO SCH (21:46)
[2016-06-27] MEDS: Pantoprazole 40 MG in 0.9 % Sodium Chloride Mini Bag 100 ML IVC SCH (22:49)
[2016-06-27] MEDS: MetroNIDAZOLE 500 MG/100 ML 500 MG/100 ML BAG IVPB SCH (22:50)
[2016-06-27] MEDS ORDERED: 0.9 % Sodium Chloride Mini Bag 100 ML ONE (23:58)
[2016-06-28 02:57] LABS: Bilirubin,Urine Negative (Negative); Blood,Urine Negative (Negative); Clarity,Urine Clear (Clear); Color,Urine Yellow (Yellow); Glucose,Urine (UA) Normal (Normal); Ketones,Urine Negative (Negative); Leukocyte Esterase,Urine Negative (Negative); Nitrite,Urine Negative (Negative); Protein,Urine Negative (Neg-Trace); Urobilinogen,Urine Normal (Normal)
[2016-06-28] MEDS: Pantoprazole 40 MG in 0.9 % Sodium Chloride Mini Bag 100 ML IVC SCH ×2 (03:43→08:32)
[2016-06-28 04:02] LABS: Hematocrit 28.4 % (35.3-44.9); Hemoglobin 9.2 g/dL (11.5-15.4); Mean Corpuscular HGB Conc 32.4 g/dL (31.6-35.5); Mean Corpuscular Hemoglobin 27.3 pg (28.0-33.3); Mean Corpuscular Volume 84.3 fL (83.0-100.0); Mean Platelet Volume 8.6 fL (9.4-12.4); Platelet Count 181 K/mcL (140-400); Red Blood Count 3.37 M/mcL (3.82-4.97); Red Cell Distribution Width 14.5 % (11.5-14.5)
[2016-06-28 04:36] LABS: Thyroid Stimulating Hormone 3.015 mcIU/mL (0.350-4.840)
[2016-06-28 04:42] LABS: Calcium 8.5 mg/dL (8.6-10.8); Chol/HDL Ratio 6.5 (0-4.9)
[2016-06-28 04:43] LABS: Albumin 3.2 g/dL (3.5-5.0); Albumin/Globulin Ratio 1.2 (1.1-2.2); Bilirubin,Direct 0.1 mg/dL (0.0-0.5); Bilirubin,Indirect 0.3 mg/dL (0.0-1.2); Bilirubin,Total 0.4 mg/dL (0.2-1.2); Globulin 2.7 g/dL (2.4-3.5); Total Protein 5.9 g/dL (6.0-8.3)
[2016-06-28] MEDS: MetroNIDAZOLE 500 MG/100 ML 500 MG/100 ML BAG IVPB SCH ×2 (06:20→14:05)
[2016-06-28 08:07] LABS: Hematocrit 27.4 % (35.3-44.9); Hemoglobin 8.8 g/dL (11.5-15.4)
[2016-06-28] MEDS: Gabapentin 400 MG CAPSULE PO SCH ×2 (08:33→14:06)
[2016-06-28] MEDS ORDERED: Metoprolol XL (24 HR) Succ 50 MG TAB.ER.24H PO SCH (09:00)
[2016-06-28] MEDS ORDERED: Aspirin Enteric Coated 81 MG Tablet PO SCH (09:00)
[2016-06-28] MEDS ORDERED: DOCOSAHEXANOIC ACID PO SCH (09:00)
[2016-06-28] MEDS ORDERED: EPA PO SCH (09:00)
[2016-06-28] MEDS ORDERED: Lisinopril 20 MG TABLET PO SCH (09:00)
--- NOTE | 2016-06-28 09:11 | Gastroenterology Consult Note ---
<Rachana Abraham - Last Filed: 06/28/16 10:59> Date of Encounter: 06/28/16 Time of Encounter: 10:15 - Assessment and plan (1) GIB (gastrointestinal bleeding) Current Visit: Yes Status: Acute Assessment and plan: EGD to rule out esophagitis, gastritis, duodenitis, PUD, AVM, MW tear, tumor, polyp. Cscope as OTPT. Qualifiers: GI bleed type/associated pathology: unspecified gastrointestinal hemorrhage type Qualified Code(s): K92.2 - Gastrointestinal hemorrhage, unspecified (2) Anemia due to acute blood loss Current Visit: Yes Status: Acute Assessment and plan: Acute on chronic anemia. Continue to monitor hh, transfuse as appropriate. 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 - Time Spent With Patient Total time spent is greater than 50% in coordination of care (as documented) at patient's floor/unit and/or counseling patient: less than 15 minutes GI History of Present Illness - Data of Consult Patient: new to practice Consult date: 06/28/16 Requesting Physician: Frederic Guevara MD - Consult Narrative Reason for consult: Anemia, melena/hematochezia History of present illness: 80-year-old female with a PMH of diverticulosis/itis, arthritis, COPD, FELY, DVT with IVC filter, GERD, GIB, HLD, HTN, osteoporosis, Fe deficiency, chronic anemia, chronic pain, obesity. She was diagnosed with acute diverticulitis accompanied by rectal bleeding by PCP and placed on atbs. She presented to the ER after becoming dizzy, weak and SOB, hgb was discovered to be low (7.8). Patient states that she's had numerous episodes like this in the past. Patient states she's had multiple endoscopies and colonoscopies in the past 3 years. No one can seem to find exactly where her bleeding is coming from. Patient states that she began having some left lower quadrant abdominal pain and was seen by her PCP who obtained a CT scan which showed acute diverticulitis. Patient states she was started on antibiotics but has continued to have "burgundy colored stools". She denies any black stools or blood clots. She denies any nausea or vomiting. She denies any hematemesis. Patient does report some crampy left lower quadrant abdominal pain. Patient last EGD 02/2015 was negative for source of bleeding. Last Cscope in the medical chart was 2013, also negative for source of bleeding. She had a capsule endoscopy in [address] Thomas that was negative for small bowel bleeding. Patient states current symptoms one week, some loose since she came into hospital, so attending placed her on precautions for possible c-diff. Stools are darker in color now, abdominal cramping precedes the stool, resolves with bowel movements. Denies increase in indigestion/heartburn, dysphagia, N/V. Colonoscopy: 2013 - VV - hyperplastic polyp, int hem, sigmoid diverticulosis EGD: 2014 - Sever - small hh, gastritis Past Med Surg Social Fam HX - Past Medical History Medical history: arthritis, COPD, DVT, GERD, GI bleed, hyperlipidemia, hypertension, osteoporosis, SVT, venous stasis, other Psychiatric history: no psych history - Past Surgical History Surgical History: breast surgery, cataract, knee replacement, orthopedic, other , other - Social History Smoking Status: Former smoker Smokeless Tobacco Status: No Alcohol use: none Drug use: none - Family History Mother Age at : 62 Hx Family Neurologic Disorders: Yes Father Age at : 95 Hx Family Cardiac Disorders: Yes - Gastrointestinal NSAID use: None noted Anticoagulation Use: None noted Number of BM Per Day: 2-3 Gastrointestinal: Present: abdominal pain, change in bowel habits, hematochezia , melena - Constitutional Constitutional: as per HPI - EENT Eyes: as per HPI Ears: Present: as per HPI Nose, mouth and throat: Present: as per HPI - Cardiovascular Cardiovascular ROS: Present: as per HPI - Respiratory Respiratory IM: Present: dyspnea - Neurological ROS Neurological GI: Present: dizziness, weakness - Hematologic/Lymphatic Hematologic/Lymphatic pediatric: Present: as per HPI - Musculoskeletal Musculoskeletal ROS GI: Present: as per HPI - Integumentary Integumentary GI: Present: as per HPI - Psychiatric ROS Psychiatric GI: Present: as per HPI - Endocrine Endocrine IM: Present: fatigue - Constitutional Vitals: Temp Pulse Resp BP Pulse Ox 97.8 F 66 16 112/62 94 L 06/28/16 07:00 06/28/16 07:00 06/28/16 07:00 06/28/16 07:00 06/28/16 07:00 General appearance: Present: cooperative, A&O X 3, no acute distress, answers questions appropriately - Head Head exam: Present: atraumatic, normocephalic - Eye Eye exam: Present: normal appearance, sclera anicteric - ENT ENT exam: Present: mucous membranes moist - Neck Neck exam general surgery: Present: normal inspection, trachea midline - Respiratory Respiratory exam: Present: CTAB - Cardiovascular Cardiovascular exam: Present: +S1, +S2 Additional comments: murmur - GI/Abdominal GI/Abdominal exam: Present: soft, tenderness, no peritoneal signs Additional comments: epigastric, LLQ - Rectal Rectal exam: Present: deferred - Extremities Exam Extremities exam: Present: warm - Neurological Exam Neurological exam: Present: no focal deficits - Psychiatric Psychiatric exam: Present: normal affect, normal mood - Skin Skin exam: Present: dry, intact, normal color, warm Results - Labs CBC & Chem 7: 06/28/16 07:50 06/28/16 03:52 Labs: Last Result Calcium 8.5 mg/dL (8.6-10.8) L 06/28/16 03:52 Troponin I 0.01 ng/mL (0-0.03) 06/28/16 07:50 C-Reactive Protein 3 mg/L (Less than 5) 06/27/16 20:40 Triglycerides 160 mg/dL (< 150) H 06/28/16 03:52 Stool Occult Blood Positive (Negative) A 06/27/16 Unknown Entire Visit Hgb 8.8 g/dL (11.5-15.4) L 06/28/16 07:50 Hct 27.4 % (35.3-44.9) L 06/28/16 07:50 PT 12.0 Seconds (9.4-12.1) 06/27/16 20:40 Total Bilirubin 0.4 mg/dL (0.2-1.2) 06/28/16 03:52 AST 32 Units/L (5-34) 06/28/16 03:52 ALT 22 Units/L (0-55) 06/28/16 03:52 Amylase 46 Units/L (25-125) 06/28/16 03:52 Lipase 19 Units/L (8-78) 06/28/16 03:52 - ABG ABG results: PT/INR, D-dimer PT 12.0 Seconds (9.4-12.1) 06/27/16 20:40 Consult Discharge Plan - Plan Referrals: Paige López MD [Primary Care Provider] - <Na Mccarty - Last Filed: 06/28/16 12:22> Time of Encounter: 12:00 - Time Spent With Patient Total time spent is greater than 50% in coordination of care (as documented) at patient's floor/unit and/or counseling patient: GI History of Present Illness - Data of Consult Requesting Physician: Frederic Guevara MD - Consult Narrative History of present illness: Ms. Chris is a 80 year old female - Constitutional Vitals: Temp Pulse Resp BP Pulse Ox 98.0 F 66 17 131/59 98 06/28/16 11:55 06/28/16 11:55 06/28/16 11:55 06/28/16 11:55 06/28/16 11:55 Results - Labs CBC & Chem 7: 06/28/16 07:50 06/28/16 03:52 Labs: Last Result Calcium 8.5 mg/dL (8.6-10.8) L 06/28/16 03:52 Troponin I 0.01 ng/mL (0-0.03) 06/28/16 07:50 C-Reactive Protein 3 mg/L (Less than 5) 06/27/16 20:40 Triglycerides 160 mg/dL (< 150) H 06/28/16 03:52 Stool Occult Blood Positive (Negative) A 06/27/16 Unknown Entire Visit Hgb 8.8 g/dL (11.5-15.4) L 06/28/16 07:50 Hct 27.4 % (35.3-44.9) L 06/28/16 07:50 PT 12.0 Seconds (9.4-12.1) 06/27/16 20:40 Total Bilirubin 0.4 mg/dL (0.2-1.2) 06/28/16 03:52 AST 32 Units/L (5-34) 06/28/16 03:52 ALT 22 Units/L (0-55) 06/28/16 03:52 Amylase 46 Units/L (25-125) 06/28/16 03:52 Lipase 19 Units/L (8-78) 06/28/16 03:52 - ABG ABG results: PT/INR, D-dimer PT 12.0 Seconds (9.4-12.1) 06/27/16 20:40 - Attending Attestation I examined this patient and my medical decision-making was reviewed with the DIRECTOR OF FINANCIAL AID/PA/Advanced Practice Nurse/Resident Physician. I agree with the documented findings, disposition and treatment plan as described except to the extent set forth below. Ascending history of anemia had multiple scopes done in the past. Patient with rectal bleeding that resolved right now. Rectal examination and no bleeding was found.. Patient will have EGD done and if negative then colonoscopy as an outpatient and if if still negative then capsule
[2016-06-28] MEDS ORDERED: 0.9 % Sodium Chloride 1,000 ML IVC SCH (12:15)
[2016-06-28] MEDS ORDERED: *HR* FentaNYL (PF) 100 MCG/2 ML VIAL ONE (12:29)
[2016-06-28] MEDS ORDERED: *HR* Midazolam HCl 5 MG/5 ML VIAL IVP ONE (12:30)
[2016-06-28] MEDS ORDERED: Simethicone 40 MG/0.6 ML MLS IR ONE (12:31)
[2016-06-28] MEDS ORDERED: *HR* Midazolam HCl 5 MG/5 ML VIAL IVP PRN (12:31)
[2016-06-28] MEDS ORDERED: Tetracaine/Benzocaine/Butamben 200MG/SPRAY (100SPY/BOT) MM ONE (12:31)
[2016-06-28] MEDS ORDERED: *HR* FentaNYL (PF) 100 MCG/2 ML VIAL IVP PRN (12:31)
--- NOTE | 2016-06-28 12:33 | Pre-Sedation Evaluation ---
Pre-sedation evaluation - Pre-sedation checklist Date of procedure: 06/28/16 Procedure: EDG Recent Vitals: Last Vital Signs Temp 98.0 F 06/28/16 11:55 Pulse 66 06/28/16 11:55 Resp 17 06/28/16 11:55 BP 131/59 06/28/16 11:55 Pulse Ox 98 06/28/16 11:55 H&P (including ROS) documented in medical record: Yes Previous reaction to sedatives/anesthetics: No Dietary Status: Clear fluids after Midnight Dentition: poor dentition ASA Classification *see protocol: CLASS III-Severe systemic disease Plan of Care: Pt appropriate candidate for procedure/moderate/conscious sedation , Risks/benefits of procedure/sedation discussed w/ patient/family
[2016-06-28 13:52] LABS: Hematocrit 27.5 % (35.3-44.9); Hemoglobin 8.9 g/dL (11.5-15.4)
--- NOTE | 2016-06-28 15:36 | Discharge Summary ---
Date of Encounter: 06/28/16 Time of Encounter: 15:28 - Discharge Diagnosis (1) GI bleed Priority: Primary Status: Acute Qualifiers: GI bleed type/associated pathology: unspecified gastrointestinal hemorrhage type Qualified Code(s): K92.2 - Gastrointestinal hemorrhage, unspecified (2) Acute diverticulitis Priority: Secondary Status: Ruled-out (3) Anemia due to acute blood loss Priority: Secondary Status: Acute (4) Blood transfusion during current hospitalization Priority: Secondary Status: Acute (5) Gastrointestinal hemorrhage with melena Priority: Secondary Status: Acute (6) Symptomatic anemia Priority: Secondary Status: Acute (7) 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 Priority: Secondary Status: Chronic - Discharge Medications Home Medications: Acetaminophen [Tylenol] 325 mg PO Q6HR PRN 04/10/15 [History] Aspirin Enteric Coated [Aspirin EC] 81 mg PO DAILY 04/10/15 [History] Dexlansoprazole [Dexilant] 60 mg PO DAILY 04/10/15 [History] Docosahexanoic Acid/Epa [Fish Oil Concentrate Softgel] 1,000 mg PO DAILY [History] Gabapentin [Neurontin] 800 mg PO TID 04/10/15 [History] Multivitamin/Iron/Folic Acid [Centrum Complete Multivit Tab] 1 tab PO DAILY 07/24 [History] Triamcinolone Acet 0.1% CRM [Kenalog] 1 appl TP BID 07/12/15 [History] Calcium Carbonate [Calcium] 1,250 mg PO DAILY 03/19/16 [History] L. Acidophilus/Pectin, [place] [Acidophilus Probiotic Capsule] 1 cap PO DAILY 04/24 [History] Lidocaine 4% CRM (LMX) [Lmx 4] 1 appl TP BID PRN 03/19/16 [History] Lisinopril [Zestril] 40 mg PO DAILY 03/19/16 [History] Metoprolol XL (24 HR) Succ [Toprol Xl] 50 mg PO DAILY 03/19/16 [History] HYDROcodone/Acet 5/325 mg [[place] 5-325 mg] 1 tab PO Q8HR PRN #10 tablet [Rx] Ferrous Sulfate [Iron] 325 mg PO BID 06/27/16 [History] Hydrochlorothiazide 12.5 mg PO DAILY 06/27/16 [History] Allergies/Adverse Reactions: Allergies ketamine Adverse Reaction (Verified 07/12/15 19:39) Hallucinating meperidine [From Demerol] Adverse Reaction (Verified 07/12/15 19:39) Hypotension Date of admission: 06/28/16 10:24 Primary care physician: Paige López, Consults: 06/28/16 07:46 Consult to Gastroenterology [CONS] Routine Consulting Provider: Gastroenterology [facility] Reason for Consult: Acute on chronic gi bleed/ ?Diverticulitis Time Notified: 07:46 Call Completed: Yes Discharging clinician: Frederic Guevara Anticipated date of discharge: 06/28/16 - Patient Status Disposition: Home, Self-Care Condition: Good Functional capacity at discharge: uses cane/walker Overall status at discharge: patient is progressing back to baseline - Discharge Instructions Instructions: Diverticulitis (DC) Follow Up With: Paige López MD [Primary Care Provider] - 07/05/16 1:20 pm Additional Instructions: Follow up with GI in 1-2 weeks for colonoscopy - Diet and Activity Activity: increase activity as tolerated Diet: low salt diet, other (bland, diverticulosis diet) Hospital course: Ms. Chris is a 80 year old female with history of chronic GI bleed with maroon- colored stools presented to the ER with complaints of weakness. Her blood work showed a hemoglobin level of 7.8. She was observed in the hospital and received blood transfusion. GI was consulted. Patient underwent upper GI endoscopy and was found to have a pyloric ulcer. GI recommends PPI. They also recommend colonoscopy as outpatient. This patient is to be blood work shows improved blood counts after blood transfusion. Patient has chronic anemia and hemoglobin runs between 7 and 8. She is feeling much better now and is tolerating diet. As such she is stable to be discharged home. She will follow up with her primary care provider. She was apparently recently diagnosed with acute diverticulitis and placed on antibiotics for it. She was also having diarrhea since coming into the hospital. Her stools were checked for C. difficile and were negative. CT scan of the abdomen is diverticulitis. - Time Spent with Patient Total time spent providing and/or coordinating discharge services: Less than 30 minutes (25 min) - Constitutional Vitals: Temp Pulse Resp BP Pulse Ox 98.0 F 58 14 112/74 92 L 06/28/16 12:55 06/28/16 12:55 06/28/16 13:54 06/28/16 13:54 06/28/16 12:55 General appearance: Present: cooperative, A&O X 3, no acute distress, answers questions appropriately - Respiratory Respiratory exam: Present: CTAB. Absent: accessory muscle use, rales, rhonchi, wheezes - Cardiovascular Cardiovascular exam: Present: RRR, +S1, +S2. Absent: diastolic murmur, gallop, rubs, systolic murmur - GI/Abdominal GI/Abdominal exam: Present: normal bowel sounds, soft, no peritoneal signs. Absent: distended, tenderness - Skin Skin exam: Present: pallor - VTE Documentation of Mechanical Device: Intermittent pneumatic compression device - Attending Attestation This document has been at least partially created by [employer] recognition technology by Dr. Guevara. Errors in grammar, wording or other phrases may exist. If errors are found after the documentation is signed, they will be addressed individually in the addendum section of this document when appropriate.
[2016-06-28 15:38] VITALS: BP 149/84
--- NOTE | 2016-06-28 16:17 | Electrocardiograph Report ---
[facility] Test Date: 2016-06-27 Pat Name: Yolande Chris Department: 105 Room: [facility] Gender: F Back Wedger: LEORA : 1935 Requested By: Kamaljit Shine Order Number: [id number] Reading MD: Almita Montesinos Measurements Intervals [place] Rate: 68 P: 28 DC: 154 QRS: 52 QRSD: 89 T: 39 QT: 394 QTc: 412 Interpretive Statements SINUS RHYTHM NONSPECIFIC T-WAVE ABNORMALITY Electronically Signed On 06-28-16 16:14:20 EST by Almita Montesinos
[2016-06-28] MEDS ORDERED: Pantoprazole 40 MG VIAL IVP SCH (18:00)
== END 2016-06-28 16:59 | disposition home or self-care (01) | DRG 378 ==
LOC: 3BNU 15:11 → EMEROO 15:11 → SUATTDRO 19:43 → 3BNU 20:00
PROVIDERS: ADMIT Nurse Practitioner Family; ATTEND Internal Medicine
PROC: ENDOEBX (2016-06-28 13:00)

== ENCOUNTER 2016-07-11 12:10 | Inpatient (IN) ==
--- NOTE | 2016-07-11 12:25 | Emergency Department Note ---
Disposition Clinical Impression: Anemia, GI (gastrointestinal hemorrhage), AVM (arteriovenous malformation) of colon, Frail elderly, Gastric ulcer Disposition: Admitted As Inpatient Condition: Fair General Adult HPI - General Chief complaint: ED General Medical Stated complaint: Low Hemoglobin Time Seen by Provider: 07/11/16 12:24 Source: family Limitations: no limitations - History of Present Illness HPI Narrative: 80-year-old female transferred to the ED from Dr. Mccarty/Gastroenterology, the patient had an EGD and colonoscopy, a bleeding colonic lesion was addressed, the patient's blood count was reportedly 6.2. Per reports the patient has had rectal bleeding for about 3 weeks. She recently had a transfusion. The patient denies any chest pain shortness of breath or abdominal pain. There is no history of syncope fever or cough elect swelling or pain or coughing up blood. No acute back pain infusion no trouble moving the arms or legs independently. There is no history of injury. There is no history of anticoagulation therapy apart from aspirin. The patient has not vomited any black or bloody material. Bright red blood per rectum is reported. 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: 0 - Related Data Home Medications Medication Instructions Recorded Confirmed Acetaminophen [Tylenol] 325 mg PO Q6HR PRN 04/10/15 07/11/16 Aspirin Enteric Coated [Aspirin EC] 81 mg PO DAILY 04/10/15 07/11/16 Dexlansoprazole [Dexilant] 60 mg PO DAILY 04/10/15 07/11/16 Docosahexanoic Acid/Epa [Fish Oil 1,000 mg PO DAILY 04/10/15 07/11/16 Concentrate Softgel] Gabapentin [Neurontin] 800 mg PO TID 04/10/15 07/11/16 Multivitamin/Iron/Folic Acid 1 tab PO DAILY 04/10/15 07/11/16 [Centrum Complete Multivit Tab] Triamcinolone Acet 0.1% CRM 1 appl TP BID 07/12/15 07/11/16 [Kenalog] Calcium Carbonate [Calcium] 1,250 mg PO DAILY 03/19/16 07/11/16 L. Acidophilus/Pectin, [place] 1 cap PO DAILY 03/19/16 07/11/16 [Acidophilus Probiotic Capsule] Lidocaine 4% CRM (LMX) [Lmx 4] 1 appl TP BID PRN 03/19/16 07/11/16 Lisinopril [Zestril] 40 mg PO DAILY 03/19/16 07/11/16 Metoprolol XL (24 HR) Succ [Toprol 50 mg PO DAILY 03/19/16 07/11/16 Xl] Ferrous Sulfate [Iron] 325 mg PO BID 06/27/16 07/11/16 Hydrochlorothiazide 12.5 mg PO DAILY 06/27/16 07/11/16 Esomeprazole Magnesium [Nexium] 40 mg PO DAILY 07/11/16 07/11/16 Previous Rx's Medication Instructions Recorded HYDROcodone/Acet 5/325 mg [[place] 1 tab PO Q8HR PRN #10 tablet 03/25/16 5-325 mg] Allergies Allergy/AdvReac Type Severity Reaction Status Date / Time ketamine AdvReac Hallucinati Verified 07/12/15 19:39 ng meperidine [From Demerol] AdvReac Hypotension Verified 07/12/15 19:39 All systems ED: reviewed and negative except as stated. Past Medical History - Past Medical History Medical history: Reports: arthritis, COPD, DVT, GERD, GI bleed, hyperlipidemia, hypertension, osteoporosis, SVT, venous stasis, other Surgical history: Reports: breast surgery, cataract, knee replacement, orthopedic, other, other Psychiatric history: Reports: no psych history - Social History Smoking Status: Never smoker Smokeless Tobacco Status: No Alcohol use: Reports: none Drug use: Reports: none Physical Exam - General Limitations: no limitations, other (The patient is pale) General appearance: alert, in no apparent distress - Head Head exam: atraumatic, normocephalic, normal inspection - Eye Eye exam: Present: normal appearance, PERRL, EOMI. Absent: scleral icterus, conjunctival injection, nystagmus, miosis, mydriasis - ENT ENT exam: normal exam, normal oropharynx, mucous membranes moist, TM's normal bilaterally, normal external ear exam - Neck Neck exam: Present: normal inspection, full ROM, trachea midline - Chest Chest inspection: Present: symmetric chest wall rise. Absent: tenderness - Respiratory Respiratory exam: Present: normal lung sounds bilaterally - Cardiovascular Cardiovascular exam: Present: normal rhythm, systolic murmur - Abdominal Exam Abdominal exam: Present: soft, Non-Tender. Absent: tenderness, distention, guarding, rebound, rigidity, trauma, pulsatile mass - Extremities Exam Extremities exam: Present: normal inspection, full ROM, normal capillary refill. Absent: tenderness, pedal edema, joint swelling, calf tenderness - Expanded Lower Extremity Exam Neurovascular/Tendon exam: Absent: motor deficit, sensory deficit, tendon deficit, extremity cold to touch - Back Exam Back exam: Present: full ROM. Absent: tenderness, CVA tenderness (R), CVA tenderness (L), vertebral tenderness - Neurological Exam Neurological exam: Present: alert, oriented X3, CN II-XII intact. Absent: motor sensory deficit - Psychiatric Psychiatric exam: Present: normal affect, normal mood - Skin Skin exam: Present: warm, dry, intact, normal color, pallor. Absent: rash, cyanosis, diaphoresis, erythema, mottled Course Vital Signs Temperature 98.2 F 07/11/16 12:16 Pulse Rate 65 07/11/16 12:16 Respiratory Rate 18 07/11/16 12:16 Blood Pressure 121/58 07/11/16 12:16 O2 Sat by Pulse Oximetry 100 07/11/16 12:16 Temperature 98.2 F 07/11/16 12:16 Pulse Rate 76 07/11/16 14:51 Respiratory Rate 18 07/11/16 15:18 Blood Pressure 119/49 07/11/16 15:18 O2 Sat by Pulse Oximetry 98 07/11/16 14:46 Oxygen Delivery Oxygen Delivery Room Air Medical Decision Making - [facility] Narrative Medical decision making narrative: The patient has a gastric ulcer which was non-bleeding via endoscopy today, she had a hemoglobin of 6.2, per report she had an colonic AVM which was bleeding and which was treated per gastroenterology. Here in the ED the patient was given IV fluid, Protonix, packed red cells were ordered for transfusion. The patient is currently stable. Based on her low hemoglobin, frail elderly state, lower GI hemorrhage, and gastritis, I thought it would be appropriate to admit the patient to the hospital. I discussed the case with the hospitalist risk control analyst who has accepted the patient to their care. - Lab Data Lab results reviewed: Yes I reviewed the patient's lab results. Result diagrams: 07/11/16 13:10 07/11/16 13:10 Lab Results 07/11/16 07/11/16 07/11/16 Range/Units 13:10 13:10 13:10 WBC 4.8 (4.3-11.1) K/mcL RBC 2.25 L (3.82-4.97) M/mcL Hgb 6.3 L (11.5-15.4) g/dL Hct 19.6 L (35.3-44.9) % MCV 87.1 (83.0-100.0) fL MCH 28.0 (28.0-33.3) pg MCHC 32.1 (31.6-35.5) g/dL RDW 15.8 H (11.5-14.5) % Plt Count 196 (140-400) K/mcL MPV 8.3 L (9.4-12.4) fL Immature Gran % 0.6 (0-4) % Seg Neutrophils % 51.5 % Lymphocytes % 36.2 % Monocytes % 9.0 % Eosinophils % 2.1 % Basophils % 0.6 % Neutrophils # 2.5 (1.6-8.9) K/mcL Lymphocytes # 1.7 (0.6-4.6) K/mcL Monocytes # 0.4 (0.0-1.3) K/mcL Eosinophils # 0.1 (0.0-0.6) K/mcL Basophils # 0.0 (0.0-0.2) K/mcL PT 11.8 (9.4-12.1) Seconds INR 1.1 APTT 33.5 (26.0-36.0) Seconds Sodium 130 L (136-145) mEq/L Potassium 4.0 (3.5-4.5) mEq/L Chloride 101 (98-109) mEq/L Carbon Dioxide 20 (19-29) mEq/L BUN 13 (7-20) mg/dL Creatinine 0.81 (0.57-1.11) mg/dL Est GFR ( Amer) > 60 (> 60) Est GFR (Non-Af Amer) > 60 (> 60) BUN/Creatinine Ratio 16 (6-26) Glucose 117 H (70-99) mg/dL Calculated Osmolality 271 L (280-300) Lactic Acid (0.5-2.2) mmol/L Calcium 8.2 L (8.6-10.8) mg/dL Total Bilirubin (0.2-1.2) mg/dL Direct Bilirubin (0.0-0.5) mg/dL Indirect Bilirubin (0.0-1.2) mg/dL AST (5-34) Units/L ALT (0-55) Units/L Alkaline Phosphatase (38-126) Units/L Troponin I (0-0.03) ng/mL Serum Total Protein (6.0-8.3) g/dL Albumin (3.5-5.0) g/dL Globulin (2.4-3.5) g/dL Albumin/Globulin Ratio (1.1-2.2) Blood Type Antibody Screen Crossmatch 07/11/16 07/11/16 07/11/16 Range/Units 13:10 13:10 13:10 WBC (4.3-11.1) K/mcL RBC (3.82-4.97) M/mcL Hgb (11.5-15.4) g/dL Hct (35.3-44.9) % MCV (83.0-100.0) fL MCH (28.0-33.3) pg MCHC (31.6-35.5) g/dL RDW (11.5-14.5) % Plt Count (140-400) K/mcL MPV (9.4-12.4) fL Immature Gran % (0-4) % Seg Neutrophils % % Lymphocytes % % Monocytes % % Eosinophils % % Basophils % % Neutrophils # (1.6-8.9) K/mcL Lymphocytes # (0.6-4.6) K/mcL Monocytes # (0.0-1.3) K/mcL Eosinophils # (0.0-0.6) K/mcL Basophils # (0.0-0.2) K/mcL PT (9.4-12.1) Seconds INR APTT (26.0-36.0) Seconds Sodium (136-145) mEq/L Potassium (3.5-4.5) mEq/L Chloride (98-109) mEq/L Carbon Dioxide (19-29) mEq/L BUN (7-20) mg/dL Creatinine (0.57-1.11) mg/dL Est GFR ( Amer) (> 60) Est GFR (Non-Af Amer) (> 60) BUN/Creatinine Ratio (6-26) Glucose (70-99) mg/dL Calculated Osmolality (280-300) Lactic Acid 1.9 (0.5-2.2) mmol/L Calcium (8.6-10.8) mg/dL Total Bilirubin 0.1 L (0.2-1.2) mg/dL Direct Bilirubin 0.1 (0.0-0.5) mg/dL Indirect Bilirubin 0.0 (0.0-1.2) mg/dL AST 24 (5-34) Units/L ALT 18 (0-55) Units/L Alkaline Phosphatase 70 (38-126) Units/L Troponin I (0-0.03) ng/mL Serum Total Protein 5.7 L (6.0-8.3) g/dL Albumin 2.8 L (3.5-5.0) g/dL Globulin 2.9 (2.4-3.5) g/dL Albumin/Globulin Ratio 1.0 L (1.1-2.2) Blood Type O NEGATIVE Antibody Screen NEGATIVE Crossmatch See Detail 07/11/16 Range/Units 13:15 WBC (4.3-11.1) K/mcL RBC (3.82-4.97) M/mcL Hgb (11.5-15.4) g/dL Hct (35.3-44.9) % MCV (83.0-100.0) fL MCH (28.0-33.3) pg MCHC (31.6-35.5) g/dL RDW (11.5-14.5) % Plt Count (140-400) K/mcL MPV (9.4-12.4) fL Immature Gran % (0-4) % Seg Neutrophils % % Lymphocytes % % Monocytes % % Eosinophils % % Basophils % % Neutrophils # (1.6-8.9) K/mcL Lymphocytes # (0.6-4.6) K/mcL Monocytes # (0.0-1.3) K/mcL Eosinophils # (0.0-0.6) K/mcL Basophils # (0.0-0.2) K/mcL PT (9.4-12.1) Seconds INR APTT (26.0-36.0) Seconds Sodium (136-145) mEq/L Potassium (3.5-4.5) mEq/L Chloride (98-109) mEq/L Carbon Dioxide (19-29) mEq/L BUN (7-20) mg/dL Creatinine (0.57-1.11) mg/dL Est GFR ( Amer) (> 60) Est GFR (Non-Af Amer) (> 60) BUN/Creatinine Ratio (6-26) Glucose (70-99) mg/dL Calculated Osmolality (280-300) Lactic Acid (0.5-2.2) mmol/L Calcium (8.6-10.8) mg/dL Total Bilirubin (0.2-1.2) mg/dL Direct Bilirubin (0.0-0.5) mg/dL Indirect Bilirubin (0.0-1.2) mg/dL AST (5-34) Units/L ALT (0-55) Units/L Alkaline Phosphatase (38-126) Units/L Troponin I 0.00 (0-0.03) ng/mL Serum Total Protein (6.0-8.3) g/dL Albumin (3.5-5.0) g/dL Globulin (2.4-3.5) g/dL Albumin/Globulin Ratio (1.1-2.2) Blood Type Antibody Screen Crossmatch - Radiology Data Radiology results reviewed: Yes I reviewed the patient's radiology results.
[2016-07-11] MEDS ORDERED: 0.9 % Sodium Chloride 1,000 ML IVC ONE (12:43)
[2016-07-11] MEDS ORDERED: Pantoprazole 40 MG VIAL IVP ONE (12:44)
[2016-07-11 13:18] LABS: Basophils % 0.6 %; Eosinophils # 0.1 K/mcL (0.0-0.6); Eosinophils % 2.1 %; Hematocrit 19.6 % (35.3-44.9); Hemoglobin 6.3 g/dL (11.5-15.4); Immature Granulocytes % 0.6 % (0-4); Lymphocytes # 1.7 K/mcL (0.6-4.6); Lymphocytes % 36.2 %; Mean Corpuscular HGB Conc 32.1 g/dL (31.6-35.5); Mean Corpuscular Volume 87.1 fL (83.0-100.0); Mean Platelet Volume 8.3 fL (9.4-12.4); Monocytes # 0.4 K/mcL (0.0-1.3); Neutrophils # 2.5 K/mcL (1.6-8.9); Platelet Count 196 K/mcL (140-400); Red Blood Count 2.25 M/mcL (3.82-4.97); Red Cell Distribution Width 15.8 % (11.5-14.5); Segmented Neutrophils % 51.5 %
[2016-07-11 13:22] LABS: INR 1.1; Prothrombin Time 11.8 Seconds (9.4-12.1)
[2016-07-11 13:25] LABS: Activated Partial Thrombo Time 33.5 Seconds (26.0-36.0)
[2016-07-11 13:31] LABS: BUN/Creatinine Ratio 16 (6-26); Blood Urea Nitrogen 13 mg/dL (7-20); Calcium 8.2 mg/dL (8.6-10.8); Carbon Dioxide 20 mEq/L (19-29); Chloride 101 mEq/L (98-109); Glucose 117 mg/dL (70-99); Osmolality,Calculated 271 (280-300); Sodium 130 mEq/L (136-145); eGFR For African Americans > 60 (> 60); eGFR For Non-African Americans > 60 (> 60)
[2016-07-11 13:34] LABS: Albumin 2.8 g/dL (3.5-5.0); Bilirubin,Direct 0.1 mg/dL (0.0-0.5); Bilirubin,Total 0.1 mg/dL (0.2-1.2); Globulin 2.9 g/dL (2.4-3.5); Total Protein 5.7 g/dL (6.0-8.3)
[2016-07-11] MEDS ORDERED: 0.9 % Sodium Chloride 500 ML ONE (14:39)
[2016-07-11] MEDS ORDERED: Naloxone 0.4 MG/ML INJ IVP PRN (17:38)
[2016-07-11] MEDS ORDERED: Ondansetron 4 MG/2 ML VIAL IVP PRN (17:41)
[2016-07-11] MEDS ORDERED: 0.9 % Sodium Chloride 1,000 ML IVC SCH (17:45)
--- NOTE | 2016-07-11 18:08 | Internal Med History&Physical ---
<Diana Jimenez - Last Filed: 07/11/16 18:55> Date of Encounter: 07/11/16 Time of Encounter: 17:40 Assessment and Plan (1) Lower GI bleed Current visit: Yes Status: Acute Pt presents today with GI bleed which was controlled by clip and coagulation in colonoscopy today prior to admission by Dr. Mccarty. Hemoglobin fell from 8 to 6.3 today and pt was called for emergency procedure. She had a small localized angioectasia with active bleeding that was controlled and pt reports 2 week history of burgundy and black diarrhea. She has never felt back to her baseline since last hospitalization 2 weeks ago and has become progressively worse. She has CHAVEZ, lightheadedness and intermittent low abd pressure that she rates 3/10. Pt received 1 unit PRBCs in the ED and 40mg Protonix, which I will continue. 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 Control pain (2) AVM (arteriovenous malformation) of colon Current visit: Yes Status: Acute plan as above (3) Anemia Current visit: Yes Status: Chronic acute blood anemia. Pt has been taking Iron supplements at home since last admission on 06/28. Pt reports that she has been having burgundy and black diarrhea 2-3x every morning for 3 weeks, has becoming increasingly worse. H and H in a.m. Monitor labs Continuous cardiac monitoring Continuous pulse oximetry. Qualifiers: Anemia type: iron deficiency Iron deficiency anemia type: chronic blood loss Qualified Code(s): D50.0 - Iron deficiency anemia secondary to blood loss (chronic) (4) Gastric ulcer Current visit: Yes Status: Chronic Pt had both endoscopy and colonoscopy today for decreased hemoglobin from level on Friday. Endoscopy done today, as well, that revealed 2 non-bleeding ulcers, biopsies taken and pending. Pt had 1.5cm non bleeding ulcer to posterior wall of gastric body, biopsies were taken from this area. 2mm non bleeding ulcer in pyloric region. Duodenum and jejunum were normal. Prior biopsy from 06/28/16 visit revealed negative for Heliobacter. Pt denies having pain in this area but it is tender to palpation on exam. No bulging or masses noted. Protonix 40mg IV bid Clear liq diet Monitor labs Control pain Qualifiers: Gastric ulcer chronicity: chronic Gastric ulcer complication status: without hemorrhage or perforation Qualified Code(s): K25.7 - Chronic gastric ulcer without hemorrhage or perforation Internal Medicine - H&P: HPI Chief complaint: anemia, rectal bleeding for 3 wks Admitted From: Home Plans for Post Hospital Care: Home History of present illness: Ms. Chris is a 80 year old female with history of diverticulitis, HTN, rectal bleeding, dyslipidemia, AVM of colon, and arthritis. Pt had emergency colonoscopy today for continued GI bleeding and decrease in Hgb from 8 on Friday to 6.3 today. Pt has had burgundy and black diarrhea, dizziness and SOB with exertion since her last discharge and has not ever really felt better, she was admitted for same on 06/27 and biopsy at that time revealed to Lakshmi. Upper Endoscopy today showed 1.5cm non-bleeding ulcer to the post wall of the gastric body, biopsies taken from here and pending. Also shows a 2mm non bleeding ulcer in the pyloric region of the stomach. Duodenum and jejunum were normal. Colonoscopy today reveals small, localized angioectasci with active bleeding in ascending colon. A clip and coagulation successfully stopped bleeding and none was noted after procedure. Pt is alert, awake, pwd, resps unlabored, only c/o 3/10 abd pressure in low middle abd and RL and R middle abd. Past Med Surg Social Fam HX - Past Medical History Medical history: arthritis, COPD, DVT, GERD, GI bleed, hyperlipidemia, hypertension, osteoporosis, SVT, venous stasis, other Psychiatric history: no psych history - Past Surgical History Surgical History: breast surgery, cataract, knee replacement, orthopedic, other , other - Social History Smoking Status: Never smoker Smokeless Tobacco Status: No Alcohol use: none Drug use: none - Family History Mother Hx Family Neurologic Disorders: Yes Father Hx Family Cardiac Disorders: Yes Internal Medicine - H&P: Meds Acetaminophen [Tylenol] 325 mg PO Q6HR PRN 04/10/15 [History] Aspirin Enteric Coated [Aspirin EC] 81 mg PO DAILY 04/10/15 [History] Dexlansoprazole [Dexilant] 60 mg PO DAILY 04/10/15 [History] Docosahexanoic Acid/Epa [Fish Oil Concentrate Softgel] 1,000 mg PO DAILY [History] Gabapentin [Neurontin] 800 mg PO TID 04/10/15 [History] Multivitamin/Iron/Folic Acid [Centrum Complete Multivit Tab] 1 tab PO DAILY 07/24 [History] Triamcinolone Acet 0.1% CRM [Kenalog] 1 appl TP BID 07/12/15 [History] Calcium Carbonate [Calcium] 1,250 mg PO DAILY 03/19/16 [History] L. Acidophilus/Pectin, [place] [Acidophilus Probiotic Capsule] 1 cap PO DAILY 04/24 [History] Lidocaine 4% CRM (LMX) [Lmx 4] 1 appl TP BID PRN 03/19/16 [History] Lisinopril [Zestril] 40 mg PO DAILY 03/19/16 [History] Metoprolol XL (24 HR) Succ [Toprol Xl] 50 mg PO DAILY 03/19/16 [History] HYDROcodone/Acet 5/325 mg [[place] 5-325 mg] 1 tab PO Q8HR PRN #10 tablet [Rx] Ferrous Sulfate [Iron] 325 mg PO BID 06/27/16 [History] Hydrochlorothiazide 12.5 mg PO DAILY 06/27/16 [History] Esomeprazole Magnesium [Nexium] 40 mg PO DAILY 07/11/16 [History] Allergies ketamine Adverse Reaction (Verified 07/12/15 19:39) Hallucinating meperidine [From Demerol] Adverse Reaction (Verified 07/12/15 19:39) Hypotension All Systems PM: A 10-system review of systems was performed and is negative for pertinent findings except as documented above in the HPI. - Constitutional Constitutional: anorexia, no chills, no fatigue, no falls, no lethargy, no weakness - Cardiovascular Cardiovascular ROS IM: dyspnea on exertion, lightheadedness, no chest pain, no diaphoresis, no edema, no palpitations, no syncope - Respiratory Respiratory: no cough, no chest congestion - Gastrointestinal Gastrointestinal: abdominal pain, belching, bloating, hematochezia, loose stools , nausea, no vomiting - Genitourinary Genitourinary: no hematuria - Integumentary Integumentary IM: no unusual bruising - Constitutional Vitals: Temp Pulse Resp BP Pulse Ox 98.3 F 79 14 133/56 98 07/11/16 17:59 07/11/16 17:59 07/11/16 17:59 07/11/16 17:59 07/11/16 17:59 General appearance: Present: A&O X 3, pleasant, no acute distress - Head Head exam: Present: normal inspection - Neck Neck exam general surgery: Present: full ROM. Absent: tenderness - Respiratory Respiratory exam: Present: CTAB. Absent: chest wall tenderness, decreased breath sounds, respiratory distress, rhonchi, wheezes, tachypnea - Cardiovascular Cardiovascular exam: Present: systolic murmur. Absent: JVD - GI/Abdominal GI/Abdominal exam: Present: distended, tenderness. Absent: hepatomegaly, hyperactive bowel sounds Additional comments: Tenderness diffusely to R side of abd, low mid abd, and epigastric area. - Rectal Rectal exam: Absent: deferred - Neurological Exam Neurological exam: Present: alert, oriented X3, no focal deficits, strengths equal and symetr throughout - Skin Skin exam: Present: dry, normal color, warm Internal Med - H&P Results - Labs CBC & Chem 7: 07/11/16 13:10 07/11/16 13:10 - EKG Data Prior EKG available for review: yes EKG comments: 07/11/16 18:16 Sinus bradycardia Rate 59, AR int 169, QRS 96 QT 413 QTc 413 <Joleen Lopez - Last Filed: 07/11/16 19:09> Date of Encounter: 07/11/16 Internal Medicine - H&P: HPI History of present illness: Ms. Chris is a 80 year old female All Systems PM: A 10-system review of systems was performed and is negative for pertinent findings except as documented above in the HPI. - Constitutional Vitals: Temp Pulse Resp BP Pulse Ox 98.3 F 79 14 133/56 98 07/11/16 17:59 07/11/16 17:59 07/11/16 17:59 07/11/16 17:59 07/11/16 17:59 Internal Med - H&P Results - Labs CBC & Chem 7: 07/11/16 13:10 07/11/16 13:10 - Attending Attestation I examined this patient and reviewed laboratory, imaging and all diagnostic data. My medical decision-making was reviewed with REHANA Jimenez. I agree with the documented findings, disposition and treatment plan as described above. Patient is a 80 yo F with pmh of CAD, GERD, and HTN who has had rectal bleeding for 3 weeks. She was called this morning because of a Hgb 6.3. She underwent emergent colonoscopy and EGD showing bleeding colonic AVM and non-bleeding PUD x2. SHe received already 1 unit PRBC. a/p 1. acute blood loss anemia 2. Lower GI bleed. 3. PUD, non-bleeding. transfuse 1 PRBC. 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 H/H q6hr.
[2016-07-11] MEDS: Pantoprazole 40 MG VIAL IVP SCH (18:15)
[2016-07-11] MEDS: Gabapentin 400 MG CAPSULE PO SCH (21:33)
[2016-07-11] MEDS: *HR* HYDROcodone/Acet 5/325 mg TABLET PO PRN (21:40)
[2016-07-12] MEDS ORDERED: Acetaminophen 325 MG TABLET PO ONE (00:45)
[2016-07-12 05:27] LABS: Basophils % 0.8 %; Eosinophils # 0.2 K/mcL (0.0-0.6); Eosinophils % 3.7 %; Hematocrit 24.6 % (35.3-44.9); Immature Granulocytes % 0.2 % (0-4); Lymphocytes # 2.3 K/mcL (0.6-4.6); Mean Corpuscular HGB Conc 32.1 g/dL (31.6-35.5); Mean Corpuscular Hemoglobin 27.7 pg (28.0-33.3); Mean Corpuscular Volume 86.3 fL (83.0-100.0); Mean Platelet Volume 9.1 fL (9.4-12.4); Monocytes # 0.6 K/mcL (0.0-1.3); Monocytes % 12.8 %; Neutrophils # 1.7 K/mcL (1.6-8.9); Platelet Count 191 K/mcL (140-400); Red Blood Count 2.85 M/mcL (3.82-4.97); Segmented Neutrophils % 34.5 %
[2016-07-12 05:33] LABS: Hemoglobin 7.9 g/dL (11.5-15.4)
[2016-07-12 05:41] LABS: BUN/Creatinine Ratio 11 (6-26); Blood Urea Nitrogen 10 mg/dL (7-20); Calcium 8.1 mg/dL (8.6-10.8); Carbon Dioxide 21 mEq/L (19-29); Chloride 106 mEq/L (98-109); Glucose 89 mg/dL (70-99); Osmolality,Calculated 279 (280-300); Potassium 3.9 mEq/L (3.5-4.5); Sodium 135 mEq/L (136-145); eGFR For African Americans > 60 (> 60); eGFR For Non-African Americans > 60 (> 60)
[2016-07-12] MEDS: Pantoprazole 40 MG VIAL IVP SCH ×2 (06:35→17:46)
[2016-07-12] MEDS: Gabapentin 400 MG CAPSULE PO SCH ×3 (08:00→20:56)
[2016-07-12] MEDS: Metoprolol XL (24 HR) Succ 25 MG TAB.ER.24H PO SCH (08:00)
--- NOTE | 2016-07-12 10:20 | Internal Med Progress Note ---
<Ricardo Casarez - Last Filed: 07/12/16 13:42> Date of Encounter: 07/12/16 Time of Encounter: 08:15 - Assessment and plan (1) Lower GI bleed Current Visit: Yes Status: Acute Assessment and plan: -Emergent colonoscopy. Patient stable today, however would like Hgb>[address] Mccarty -Denies any rectal bleeding or bowl movements. Resting comfortably. HR 70's Plan -Advance diet as tolerated. -Transfuse [address] Castillo, keep hemoglobin above 9. -Continue protonix 40mg IV BID, stop fluids, repeat H&H in morning, Tele, pulse ox -Monitor tonight, possible discharge tomorrow (2) Gastric ulcer Current Visit: Yes Status: Chronic Assessment and plan: Plan -Continue protonix Qualifiers: Gastric ulcer chronicity: chronic Gastric ulcer complication status: without hemorrhage or perforation Qualified Code(s): K25.7 - Chronic gastric ulcer without hemorrhage or perforation (3) Anemia Current Visit: Yes Status: Chronic Assessment and plan: -see above Qualifiers: Anemia type: iron deficiency Iron deficiency anemia type: chronic blood loss Qualified Code(s): D50.0 - Iron deficiency anemia secondary to blood loss (chronic) (4) DVT prophylaxis Current Visit: Yes Status: Acute Assessment and plan: -patient has an INR of 1.1. Previous history of DVT. Has an IVC filter. States that she has an adverse reaction to warfarin and xerelto "gets a rash" -lower GI bleed, emergent colonoscopy on 07/11/16 Plan -Place Intermittent compression stockings. -Patient has acute lower GI bleed, will not start anticoagulation - Subjective Interval history: Patient doing well today. Sitting up in the chair and wanting to go home. Denies any chest pain, shortness of breath, bowel movement, hemoptysis, hematochezia. Would like to eat. - Constitutional Vitals: Temp Pulse Resp BP Pulse Ox 97.6 F 61 16 146/58 98 07/12/16 07:37 07/12/16 07:37 07/12/16 07:37 07/12/16 07:37 07/12/16 07:37 General appearance: Present: A&O X 3, pleasant, no acute distress - Head Head exam: Present: atraumatic, normocephalic - Eye Eye exam: Present: PERRL, conjuntiva pink, sclera anicteric Pupils: Present: PERRL - Neck Neck exam general surgery: Present: supple, trachea midline. Absent: lymphadenopathy - Respiratory Respiratory exam: Present: CTAB. Absent: accessory muscle use, rales, rhonchi, wheezes - Cardiovascular Cardiovascular exam: Present: RRR, systolic murmur. Absent: diastolic murmur - GI/Abdominal GI/Abdominal exam: Present: normal bowel sounds, soft, no peritoneal signs. Absent: distended, tenderness - Extremities Exam Extremities exam: Present: warm, radial pulses palpable and symetrical. Absent : calf tenderness, cyanotic, pedal edema - Neurological Exam Neurological exam: Present: CN II-XII intact, oriented X3, no focal deficits. Absent: pronater drift, facial droop, speech deficit - Skin Skin exam: Present: dry, intact Internal Medicine: Result - Labs CBC & Chem 7: 07/12/16 10:39 07/12/16 04:26 - ABG Interpretation ABG results: PT/INR, D-dimer PT 11.8 Seconds (9.4-12.1) 07/11/16 13:10 Consult Discharge Plan - Plan Referrals: Paige López MD [Primary Care Provider] - 07/22/16 9:40 am <Nelson Hutton P - Last Filed: 07/12/16 17:49> Date of Encounter: 07/12/16 - Constitutional Vitals: Temp Pulse Resp BP Pulse Ox 97.9 F 61 18 153/59 100 07/12/16 16:15 07/12/16 16:15 07/12/16 16:15 07/12/16 16:15 07/12/16 16:15 Internal Medicine: Result - Labs CBC & Chem 7: 07/12/16 10:39 07/12/16 04:26 Labs: Short CBC 07/12/16 Range/Units 10:39 Hgb 8.9 L (11.5-15.4) g/dL Hct 26.9 L (35.3-44.9) % - ABG Interpretation ABG results: PT/INR, D-dimer PT 11.8 Seconds (9.4-12.1) 07/11/16 13:10 - Attending Attestation I examined this patient and my medical decision-making was reviewed with the MINE WIRER/PA/Advanced Practice Nurse/Resident Physician. I agree with the documented findings, disposition and treatment plan as described except to the extent set forth below.
[2016-07-12 11:21] LABS: Hematocrit 26.9 % (35.3-44.9); Hemoglobin 8.9 g/dL (11.5-15.4)
--- NOTE | 2016-07-12 15:22 | Electrocardiograph Report ---
[place] [id number] Test Date: 2016-07-11 Pat Name: Yolande Chris Department: 104 Room: [facility] Gender: F Supervisor [place]: : 1935 Requested By: Slava Her Order Number: [id number] Reading MD: Almita Montesinos Measurements Intervals [place] Rate: 59 P: 190 ID: [id number] QRS: 16 QRSD: 96 T: 26 QT: 413 QTc: 413 Interpretive Statements SINUS BRADYCARDIA MINIMAL ST DEPRESSION Electronically Signed On 07-12-2016 15:21:00 EST by Almita Montesinos
[2016-07-12] MEDS ORDERED: 0.9 % Sodium Chloride 250 ML ONE (15:30)
[2016-07-13] MEDS: *HR* HYDROcodone/Acet 5/325 mg TABLET PO PRN (04:25)
[2016-07-13] MEDS: Pantoprazole 40 MG VIAL IVP SCH (05:27)
[2016-07-13 05:57] VITALS: BP 131/59
[2016-07-13 06:20] LABS: Hematocrit 30.3 % (35.3-44.9); Hemoglobin 9.9 g/dL (11.5-15.4)
[2016-07-13 06:26] LABS: BUN/Creatinine Ratio 10 (6-26); Blood Urea Nitrogen 10 mg/dL (7-20); Calcium 8.8 mg/dL (8.6-10.8); Carbon Dioxide 22 mEq/L (19-29); Chloride 106 mEq/L (98-109); Glucose 95 mg/dL (70-99); Osmolality,Calculated 285 (280-300); Potassium 4.2 mEq/L (3.5-4.5); Sodium 138 mEq/L (136-145); eGFR For African Americans > 60 (> 60); eGFR For Non-African Americans 52 (> 60)
[2016-07-13] MEDS: Metoprolol XL (24 HR) Succ 25 MG TAB.ER.24H PO SCH (09:03)
[2016-07-13] MEDS: Gabapentin 400 MG CAPSULE PO SCH (09:03)
--- NOTE | 2016-07-13 09:35 | Discharge Summary ---
<Matthew Casarezon Anderson - Last Filed: 07/13/16 12:09> Date of Encounter: 07/13/16 Time of Encounter: 09:31 - Discharge Diagnosis (1) Lower GI bleed Status: Acute (2) Gastric ulcer Status: Chronic Qualifiers: Gastric ulcer chronicity: chronic Gastric ulcer complication status: without hemorrhage or perforation Qualified Code(s): K25.7 - Chronic gastric ulcer without hemorrhage or perforation (3) Anemia Status: Chronic Qualifiers: Anemia type: iron deficiency Iron deficiency anemia type: chronic blood loss Qualified Code(s): D50.0 - Iron deficiency anemia secondary to blood loss (chronic) (4) DVT prophylaxis Status: Acute - Discharge Medications Home Medications: Acetaminophen [Tylenol] 325 mg PO Q6HR PRN 04/10/15 [History] Aspirin Enteric Coated [Aspirin EC] 81 mg PO DAILY 04/10/15 [History] Dexlansoprazole [Dexilant] 60 mg PO DAILY 04/10/15 [History] Docosahexanoic Acid/Epa [Fish Oil Concentrate Softgel] 1,000 mg PO DAILY [History] Gabapentin [Neurontin] 800 mg PO TID 04/10/15 [History] Multivitamin/Iron/Folic Acid [Centrum Complete Multivit Tab] 1 tab PO DAILY 07/24 [History] Triamcinolone Acet 0.1% CRM [Kenalog] 1 appl TP BID 07/12/15 [History] Calcium Carbonate [Calcium] 1,250 mg PO DAILY 03/19/16 [History] L. Acidophilus/Pectin, [place] [Acidophilus Probiotic Capsule] 1 cap PO DAILY 04/24 [History] Lidocaine 4% CRM (LMX) [Lmx 4] 1 appl TP BID PRN 03/19/16 [History] Lisinopril [Zestril] 40 mg PO DAILY 03/19/16 [History] Metoprolol XL (24 HR) Succ [Toprol Xl] 50 mg PO DAILY 03/19/16 [History] HYDROcodone/Acet 5/325 mg [[place] 5-325 mg] 1 tab PO Q8HR PRN #10 tablet [Rx] Ferrous Sulfate [Iron] 325 mg PO BID 06/27/16 [History] Hydrochlorothiazide 12.5 mg PO DAILY 06/27/16 [History] Esomeprazole Magnesium [Nexium] 40 mg PO DAILY 07/11/16 [History] Allergies/Adverse Reactions: Allergies ketamine Adverse Reaction (Verified 07/12/15 19:39) Hallucinating meperidine [From Demerol] Adverse Reaction (Verified 07/12/15 19:39) Hypotension Date of admission: 07/12/16 09:50 Primary care physician: Paige López, Discharging clinician: Ricardo Casarez Anticipated date of discharge: 07/13/16 - Patient Status Disposition: Home, Self-Care Condition: Good Functional capacity at discharge: independent ambulation Overall status at discharge: patient is back to baseline - Discharge Instructions Instructions: Gastrointestinal Bleeding (DC), Rectal Bleeding (DC) Follow Up With: Paige López MD [Primary Care Provider] - 07/22/16 9:40 am (Emergent colonoscopy for acute lower GI bleed. Hbg 6.2. Caudurization. Transfused. Stable and back to baseline. ) Additional Instructions: Please return to the ED if you continue to have a GI bleed or have an episode of syncope. - Diet and Activity Activity: increase activity as tolerated Diet: advance to your usual diet Hospital course: Ms. Chris is a 80 year old female acute lower GI bleed. Emergent colonoscopy with cauterization. she was transfused. Hgb today is >9.0 and stable. Post proceedure, patient has been ambulating independently without problems. Eating and drinking normally. Denies abdominal pain and able to stand during the exam without problems. Feels like she is back to baseline. She has not had a bowel movement and not passing gas. Patient is not concerned about this and would like to go home. - Time Spent with Patient Total time spent providing and/or coordinating discharge services: - Constitutional Vitals: Temp Pulse Resp BP Pulse Ox 97.6 F 57 19 131/59 98 07/13/16 08:13 07/13/16 08:13 07/13/16 08:13 07/13/16 05:00 07/13/16 09:08 General appearance: Present: A&O X 3, pleasant, no acute distress - Head Head exam: Present: atraumatic, normocephalic - Eye Eye exam: Present: PERRL, conjuntiva pink, sclera anicteric Pupils: Present: PERRL - Neck Neck exam general surgery: Present: supple, trachea midline. Absent: lymphadenopathy - Respiratory Respiratory exam: Present: CTAB. Absent: accessory muscle use, rales, rhonchi, wheezes - Cardiovascular Cardiovascular exam: Present: RRR, systolic murmur. Absent: diastolic murmur, gallop, rubs - GI/Abdominal GI/Abdominal exam: Present: normal bowel sounds, soft, no peritoneal signs. Absent: distended, tenderness - Extremities Exam Extremities exam: Present: warm, radial pulses palpable and symetrical. Absent : calf tenderness, cyanotic, pedal edema - Neurological Exam Neurological exam: Present: CN II-XII intact, oriented X3, no focal deficits. Absent: pronater drift, facial droop, speech deficit - Skin Skin exam: Present: dry, intact - VTE Documentation of Mechanical Device: Intermittent pneumatic compression device <Nelson Hutton P - Last Filed: 07/13/16 15:56> Date of Encounter: 07/13/16 Date of admission: 07/12/16 09:50 Primary care physician: Paige López, [facility] course: Ms. Chris is a 80 year old female - Time Spent with Patient Total time spent providing and/or coordinating discharge services: - Constitutional Vitals: Temp Pulse Resp BP Pulse Ox 98.0 F 63 18 131/59 99 07/13/16 11:47 07/13/16 11:47 07/13/16 11:47 07/13/16 05:00 07/13/16 11:47 - Attending Attestation I examined this patient and my medical decision-making was reviewed with the SERVICER TRAVEL TRAILERS/PA/Advanced Practice Nurse/Resident Physician. I agree with the documented findings, disposition and treatment plan as described except to the extent set forth below.
== END 2016-07-13 13:56 | disposition home or self-care (01) | DRG 379 ==
LOC: 2NENU 12:10 → EMEROO 12:10 → 2NENU 16:36
PROVIDERS: ADMIT Internal Medicine; ATTEND Internal Medicine

== ENCOUNTER 2017-04-10 12:32 | Inpatient (IN) ==
[2017-04-10] MEDS ORDERED: CeFAZolin Syr 2,000MG/20 ML 2,000 MG/20 ML SYRINGE IVPB ONE (12:51)
[2017-04-10] MEDS ORDERED: Ringers Solution, Lactated 1,000 ML IVC SCH (13:00)
--- NOTE | 2017-04-10 13:50 | History & Physical Report ---
Date of Encounter: 04/10/17 Time of Encounter: 13:49 24 Hour HP Update - Instructions Instructions: If the History and Physical is less than 30 days old and was completed prior to A.M. admission and or procedure and has NOT been updated on calendar day of procedure please complete this update prior to performing procedure. - Update Patient reports changes in Medical Condition: No Changes in examination, assessment, or condition: No Changes in Medication: No Preop tests/diagnostics Reviewed: Yes Surgery Remains Indicated: Yes Consent for Planned Operative Procedure(s) Verified: Yes - Pre-Operative Checklist Preoperative Checklist Indicated: No Prophylactic Antibiotic Ordered: Yes Is VTE Prophylaxis Indicated?: Yes
[2017-04-10] MEDS ORDERED: Ondansetron 4 MG/2 ML VIAL ONE (13:58)
[2017-04-10] MEDS ORDERED: *HR* Succinylcholine 200 MG/10 ML VIAL IVP ONE (13:58)
[2017-04-10] MEDS ORDERED: Lidocaine -MPF 2% 2 ML VIAL ONE (13:58)
[2017-04-10] MEDS ORDERED: *HR* Rocuronium Bromide 50 MG/5 ML VIAL ONE (13:58)
[2017-04-10] MEDS ORDERED: *HR* Midazolam HCl 2 MG/2 ML VIAL ONE (13:58)
[2017-04-10] MEDS ORDERED: *HR* Propofol 200 MG/20 ML VIAL IVP ONE (13:58)
[2017-04-10] MEDS ORDERED: *HR* FentaNYL (PF) 100 MCG/2 ML VIAL ONE (13:58)
[2017-04-10] MEDS ORDERED: Dexamethasone 4 MG/ML VIAL ONE (13:58)
[2017-04-10] MEDS ORDERED: ROPIVACAINE HCL/PF 0.5% 30 ML VIAL ONE (13:59)
[2017-04-10] MEDS ORDERED: Lidocaine -MPF 4% 5 ML AMPUL ONE (13:59)
--- NOTE | 2017-04-10 14:01 | Anesthesia Evaluation PreOp ---
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 Acidophilus/Pectin, [place] [Acidophilus Probiotic Capsule] 1 cap PO DAILY 04/24 [History] Lisinopril [Zestril] 40 mg PO DAILY 03/19/16 [History] Ferrous Sulfate [Iron] 325 mg PO DAILY 06/27/16 [History] hydroCHLOROthiazide [Hydrochlorothiazide] 12.5 mg PO DAILY 06/27/16 [History] Sucralfate [Carafate] 1 gm PO QID 10/03/16 [History] Allopurinol [Zyloprim 300 MG] 300 mg PO DAILY 04/10/17 [History] Metoprolol XL (24 HR) Succ [Toprol XL] 50 mg PO DAILY 04/10/17 [History] 3 Allergy/AdvReac Type Severity Reaction Status Date / Time ketamine AdvReac Hallucinati Verified 04/10/17 13:11 ng meperidine [From Demerol] AdvReac Hypotension Verified 04/10/17 13:11 - Meds/Allergy Pre-op Review Medications Reviewed: Yes Allergies Reviewed: Yes Beta Blockers on Current Med List: No Anesthesia Results - Labs Laboratory Tests 04/07/17 04/07/17 04/08/17 12:50 12:50 13:04 Hgb 10.9 L Hct 33.5 L Plt Count 246 Sodium 137 Potassium 5.3 H Chloride 105 Carbon Dioxide 22 BUN 24 H Creatinine 1.16 H Est GFR (Non-Af Amer) 45 L Anesthesia Exam Vital Signs/O2 Sat/Glucose, Most Current Temp Pulse Resp BP Pulse Ox 04/10/17 13:03 97.6 F 57 20 164/64 97 Weight: 84 kg NPO (# of Hours): 8 - HEENT Pupil (Motor): Pupils equal, EOMI Mallampati: II Teeth: Normal - KNITTING DEMONSTRATOR LOC: Oriented KNITTING DEMONSTRATOR Motor: Normal RUE, Normal LUE, Normal RLE, Normal LLE, Normal Face KNITTING DEMONSTRATOR Sensory: Normal: RUE, LUE, RLE, LLE, Face - Cardiac Rhythm: Regular Murmur: None - Pulmonary Breath Sounds: bilateral Clear Respiratory Effort: Symmetrical Anesthesia Assess/Plan ASA Score: 3 Modified Sumit Scale for Level of Consciousness: Cooperative, oriented, and tranquil Anesthetic Plan: General, Regional Autologous Blood: Yes Monitoring Plan: Standard Monitors Recovery Plan: PACU
[2017-04-10] MEDS ORDERED: EPHEDrine 50 MG/ML VIAL ONE (14:03)
--- NOTE | 2017-04-10 14:25 | Anesthesia Procedures ---
Date of Encounter: 04/10/17 Time of Encounter: 14:23 Procedures: Anesthesia - Nerve Block Procedure Date: 04/10/17 Time: 14:23 Surgical Procedure: l reverse total shoulder Checklist: Correct Patient Identifier, Correct procedure, History checked Correct side: Left Blood Thinner: No Monitor Applied: EKG Supplemental Oxygen via Nasal Cannula (L/min): 2 Sedation: Versed (mg): 1 Sedation: Fentanyl (mcg): 50 Indication: Post Op Analgesia (request per dr moeller for post op pain control) Pre-op Neuro Deficits: No Block Type: Interscalene Catheter placed: No Depth at skin (cm): 3 Sterile Technique: Yes Ultrasound used: Yes Anatomy identified: Yes Visual spread of Local: Yes Neuro Stimulation: No Blood on Needle Aspiration: No Smooth Injection of Local: Yes Pain with Injection of Local: No Prep: Chlorhexadine Needle: 22 x 50 mm Stimuplex Local: Ropivacaine (8 mg decadron) Volume (cc): 27 Number of Attempts: 1 Complications: None/effective block Vitals: Vital Signs/O2 Sat/Glucose, Most Current Temp Pulse Resp BP Pulse Ox 04/10/17 14:11 52 16 184/86 95 04/10/17 13:03 97.6 F 57 20 164/64 97
[2017-04-10] MEDS ORDERED: *HR* Etomidate 40 MG/20 ML VIAL IVP ONE (14:40)
--- NOTE | 2017-04-10 14:53 | Discharge Summary ---
Date of Encounter: 04/11/17 Time of Encounter: 06:54 - Discharge Diagnosis (1) Hypertension Priority: Secondary Status: Chronic Qualifiers: Hypertension type: unspecified secondary hypertension Qualified Code(s): I15.9 - Secondary hypertension, unspecified; I15 - Secondary hypertension (2) Obstructive sleep apnea Priority: Secondary Status: Chronic (3) Left rotator cuff tear arthropathy Priority: Primary Status: Chronic (4) Status post reverse total replacement of left shoulder Priority: Primary Status: Acute (5) History of DVT (deep vein thrombosis) Priority: Secondary Status: Chronic (6) Obesity (BMI 30-39.9) Priority: Secondary Status: Chronic - Discharge Medications Home Medications: Aspirin Enteric Coated [Aspirin EC] 81 mg PO DAILY 04/10/15 [History] Dexlansoprazole [Dexilant] 60 mg PO DAILY 04/10/15 [History] Docosahexanoic Acid/Epa [Fish Oil Concentrate Softgel] 1,000 mg PO DAILY [History] Gabapentin [Neurontin] 800 mg PO TID 04/10/15 [History] Calcium Carbonate [Calcium] 1,250 mg PO DAILY 03/19/16 [History] L. Acidophilus/Pectin, [place] [Acidophilus Probiotic Capsule] 1 cap PO DAILY 04/24 [History] Lisinopril [Zestril] 40 mg PO DAILY 03/19/16 [History] Ferrous Sulfate [Iron] 325 mg PO DAILY 06/27/16 [History] hydroCHLOROthiazide [Hydrochlorothiazide] 12.5 mg PO DAILY 06/27/16 [History] Sucralfate [Carafate] 1 gm PO QID 10/03/16 [History] Allopurinol [Zyloprim 300 MG] 300 mg PO DAILY 04/10/17 [History] Metoprolol XL (24 HR) Succ [Toprol Xl] 50 mg PO DAILY 04/10/17 [History] OxyCODONE Immed Rel [Roxicodone 5 MG] 5 mg PO Q4HR PRN #24 tablet 04/10/17 [Rx] Allergies/Adverse Reactions: 3 Allergy/AdvReac Type Severity Reaction Status Date / Time ketamine AdvReac Hallucinati Verified 04/10/17 13:11 ng meperidine [From Demerol] AdvReac Hypotension Verified 04/10/17 13:11 Primary care physician: Paige Lópze, - Patient Status Disposition: Home, Self-Care Condition: Good Functional capacity at discharge: independent ambulation Overall status at discharge: patient is progressing back to baseline - Discharge Instructions Follow Up With: Paige López MD [Primary Care Provider] - - Hospital Course Hospital course: Ms. Chris is a 81 year old female Status post left total shoulder replacement reverse. The patient had an uneventful postoperative course. They received antibiotics and physical therapy and were discharged in stable condition. There will follow -up in the office in 2 weeks. - Time Spent with Patient Total time spent providing and/or coordinating discharge services:
[2017-04-10] MEDS ORDERED: *HR* Promethazine 25 MG/ML VIAL IVP PRN (15:18)
[2017-04-10] MEDS ORDERED: *HR* HYDROmorphone (PF) 1 MG/ML SYRINGE IVP PRN ×2 (15:18→17:06)
[2017-04-10] MEDS ORDERED: Ondansetron 4 MG/2 ML VIAL IVP ONE (15:18)
--- NOTE | 2017-04-10 15:46 | Orthopedic Operative Note ---
Date of procedure: 04/10/17 Pre-op diagnosis: Shoulder cuff tear arthropathy, superior shoulder cyst Post-op diagnosis: same Procedure: Procedure: Left Total Shoulder Replacment Reverse, cyst evacuation Estimated blood loss: 100 cc Hardware: Metal and polyethylene replacement: Arthrex medium glenoid baseplate , 2 4.5 screws. 1 6.5 screw, 42+4 glenosphere, 6 humeral stem, poly insert 3 Exam Under anesthesia: Full motion no instability large cyst formation on the superior aspect of the shoulder approximately 3 cm. Procedural Notes: The cyst was evacuated subcutaneously with suction. The patient had irreparable tears subscap supraspinatus portion of infraspinatus. Grade 4 arthritic changes humeral head and glenoid socket. Operative procedure: The patient was brought to the operating room and placed on the operating room table. After general anesthesia was administered the operative shoulder was examined. Findings were noted. The patient was placed in the modified beachchair position. All pressure points were padded appropriately. And the head was stabilized in the neutral position. The operative extremity was prepped and draped in the sterile surgical fashion. The patient received IV antibiotics prior to skin incision. A standard deltopectoral approach was made to the operative shoulder. Incision was made to the skin and subcutaneous tissue,hemo stasis was obtained with Bovie cautery. Using careful blunt dissection the cephalic vein was identified and mobilized medially. The deltopectoral interval was developed and the clavipectoral fascia was incised. The subscap was irreparable. The humerus was dislocated patient noted to have irreparable tear supraspinatus tendon, and the humeral cut was made along the anatomic neck. Patient noted to have grade 4 arthritic changes humeral head. Anterior and posterior Bankart retractors were placed to expose the glenoid. Patient does have grade 43 changes glenoid socket. The glenoid guide was seated and the centering hole was made. It was reamed with the appropriate reamer. Medium baseplate was seated and secured with (2) 4.5 screws and one 6.5 screw. The baseplate was irrigated and dried and the 42+4 Glenosphere was seated and secured with the Haddad taper. The Haddad taper was tested and found to be secure the humerus was redislocated and prepared with the diaphyseal reamers, followed by a broaching process up to the appropriate size 6 in the patient's anatomic version. The metaphyseal reamer was then utilized. Trial reduction found the shoulder to be relocatable. Trial components were removed and the 6 stem was impacted in place in the patient's anatomic version. Trial reduction found the shoulder to be relocatable and stable with the appropriate 3. Trial component was removed and the real component was seated and secured the shoulder was reduced. The shoulder had excellent motion and excellent stability and no evidence of dislocation. The deep tissue was irrigated with pulse irrigation. The deltopectoral interval was closed with a running #1 PDS suture, subcutaneous tissue was irrigated and closed with 0 PDS suture, the skin was closed with Dermabond. The patient was placed in a sterile dressing, abduction brace and extubated. The patient was then transferred to the recovery room in stable condition. Anesthesia: VINITA Surgeon: Dalton Zavala Condition: stable Disposition: PACU
--- NOTE | 2017-04-10 16:53 | Anesthesia Evaluation Post Op ---
Date of Encounter: 04/10/17 Time of Encounter: 16:51 - Vital Signs Vital Signs: Selected Entries 04/10/17 16:28 04/10/17 16:38 Temperature 98.0 F Pulse Rate 57 Respiratory Rate 12 Blood Pressure 189/76 O2 Sat by Pulse Oximetry 99 Oxygen Flow Rate (LPM) 2 - Lungs Lungs: Clear Ascult./Percussion - Airway Airway: Non-obstructed - Cardiovascular Regular Rate - Mental Status Mental Status: Alert & Oriented, Answers Appropriately - Pain Pain Scale: 2 Pain Scale used: Numeric (1 - 10) - Nausea Vomiting Nausea Vomiting: Not Present - Hydration Hydration: Ice chips, Has not voided - Discharge PostOp Status: Transfer Patient to floor (patient with HTN, has received hydralazine.)
[2017-04-10] MEDS ORDERED: Temazepam 15 MG CAPSULE PO PRN (17:06)
[2017-04-10] MEDS ORDERED: Naloxone 0.4 MG/ML INJ IVP PRN (17:06)
[2017-04-10] MEDS ORDERED: Sennosides 8.6 MG TABLET PO PRN (17:06)
[2017-04-10] MEDS ORDERED: MOM Conc 10 ML UD.LIQ PO PRN (17:06)
[2017-04-10] MEDS ORDERED: *HR* Enoxaparin 30 MG/0.3 ML SYRINGE SQ SCH (18:00)
[2017-04-10] MEDS: Gabapentin 400 MG CAPSULE PO SCH (18:32)
[2017-04-10] MEDS: Sucralfate 1 GM TABLET PO SCH ×2 (18:32→22:32)
[2017-04-10] MEDS: *HR* Enoxaparin 30 MG/0.3 ML SYRINGE SQ SCH (20:07)
[2017-04-10] MEDS ORDERED: CeFAZolin Pre 2,000 MG/100 ML 2,000 MG/100 ML BAG IVPB SCH (22:00)
[2017-04-10] MEDS: ceFAZolin 2,000 MG in D5% in Water 100 ML IVPB SCH (22:31)
[2017-04-10] MEDS: *HR* OxyCODONE Immed Rel 5 MG TABLET PO PRN (22:32)
[2017-04-11] MEDS: *HR* Enoxaparin 30 MG/0.3 ML SYRINGE SQ SCH ×2 (05:24→17:40)
[2017-04-11] MEDS: ceFAZolin 2,000 MG in D5% in Water 100 ML IVPB SCH (05:24)
[2017-04-11] MEDS: *HR* OxyCODONE Immed Rel 5 MG TABLET PO PRN ×4 (05:47→22:48)
--- NOTE | 2017-04-11 06:56 | Orthopedics Progress Note ---
Date of Encounter: 04/11/17 Time of Encounter: 06:55 - Assessment and Plan (1) Hypertension Current Visit: Yes Status: Chronic Qualifiers: Hypertension type: unspecified secondary hypertension Qualified Code(s): I15.9 - Secondary hypertension, unspecified; I15 - Secondary hypertension (2) Obstructive sleep apnea Current Visit: Yes Status: Chronic (3) Left rotator cuff tear arthropathy Current Visit: Yes Status: Chronic (4) Status post reverse total replacement of left shoulder Current Visit: Yes Status: Acute (5) History of DVT (deep vein thrombosis) Current Visit: No Status: Chronic (6) Obesity (BMI 30-39.9) Current Visit: No Status: Chronic Subjective Interval history: Patient was seen this morning doing well without complaints. Afebrile vital signs stable. Operative extremity: Neurovascularly intact Dressing clean dry and intact Calves nontender Assessment and plan: Continue with postoperative care Hematocrit 30 discharged today Objective Vital signs: Vital Signs Temp Pulse Resp BP Pulse Ox 04/11/17 05:19 98.6 F 64 16 115/55 95 04/11/17 00:01 97.7 F 68 16 104/63 96 04/10/17 20:15 97.3 F L 74 169 98 04/10/17 19:15 97.6 F 75 16 127/69 04/10/17 18:15 98.5 F 66 17 126/72 98 04/10/17 17:40 98.5 F 61 13 161/76 97 04/10/17 17:08 97 04/10/17 17:07 98.5 F 58 12 150/64 97 04/10/17 16:48 60 16 187/77 98 04/10/17 16:38 57 12 189/76 99 04/10/17 16:28 98.0 F 61 15 195/79 98 04/10/17 16:18 63 13 180/81 95 04/10/17 16:08 61 16 174/98 95 04/10/17 15:58 98.4 F 71 14 181/71 95 04/10/17 14:32 53 15 136/64 97 04/10/17 14:11 52 16 184/86 95 04/10/17 13:03 97.6 F 57 20 164/64 97 Intake and Output 04/10/17 04/10/17 04/11/17 15:59 23:59 07:59 Intake Total 100 / 100 Output Total 100 / 100 0 / 0 0 / 0 Balance -100 / -100 100 / 100 0 / 0 Intake: IV Fluids 100 / 100 Ancef 2,000 MG In Dextrose 5% 100 / 100 100 ML @ 200 mls/hr IVPB Q8H LUZMA Rx#:[id number] Oral 0 / 0 Output: Urine 0 / 0 0 / 0 Estimated Blood Loss 100 / 100 Other: # Voids 1 Weight 84.822 kg - Labs CBC & BMP: 04/11/17 05:20 Labs: Abnormal lab results Hgb 10.0 g/dL (11.5-15.4) L 04/11/17 05:20 Hct 30.0 % (35.3-44.9) L 04/11/17 05:20 - VTE Documentation of Mechanical Device: Venous foot pump, device Consult Discharge Plan - Plan Referrals: Paige López MD [Primary Care Provider] -
[2017-04-11] MEDS: Ondansetron 4 MG/2 ML VIAL IVP PRN (08:34)
[2017-04-11] MEDS: DOCOSAHEXANOIC ACID PO SCH (09:12)
[2017-04-11] MEDS: (Dexlansoprazole [Dexilant] 60 MG) PO SCH (09:12)
[2017-04-11] MEDS: EPA PO SCH (09:12)
[2017-04-11] MEDS: Ringers Solution, Lactated 1,000 ML IVC SCH ×2 (10:49→13:04)
[2017-04-11] MEDS: Lisinopril 20 MG TABLET PO SCH (10:51)
[2017-04-11] MEDS: Metoprolol XL (24 HR) Succ 50 MG TAB.ER.24H PO SCH (10:51)
[2017-04-11] MEDS: hydroCHLOROthiazide 25 MG TABLET PO SCH (10:52)
[2017-04-11] MEDS: Lactobacillus 1 EACH CAP.SPRINK PO SCH (10:54)
[2017-04-11] MEDS: Sucralfate 1 GM TABLET PO SCH ×4 (10:54→22:48)
[2017-04-11] MEDS: Aspirin Enteric Coated 81 MG Tablet PO SCH (10:55)
[2017-04-11] MEDS: Gabapentin 400 MG CAPSULE PO SCH ×2 (10:55→22:48)
--- NOTE | 2017-04-11 11:49 | Event Note ---
Date of Encounter: 04/11/17
[2017-04-11] MEDS ORDERED: Acetaminophen IV 1,000 MG/100 ML INFUS..BTL IVPB PRN (13:34)
[2017-04-11 15:50] LABS: BUN/Creatinine Ratio 31 (6-26); Blood Urea Nitrogen 30 mg/dL (7-20); Calcium 8.5 mg/dL (8.6-10.8); Carbon Dioxide 24 mEq/L (19-29); Chloride 102 mEq/L (98-109); Glucose 154 mg/dL (70-99); Osmolality,Calculated 289 (280-300); Potassium 4.4 mEq/L (3.5-4.5); Sodium 135 mEq/L (136-145); eGFR For African Americans > 60 (> 60); eGFR For Non-African Americans 56 (> 60)
--- NOTE | 2017-04-11 16:42 | Physician Discharge Referral ---
ExtendedCare Referral Info Transfer To: [facility] Provider in Charge: Dr. Dalton Zavala - Diagnosis (1) Left rotator cuff tear arthropathy Priority: Secondary Status: Chronic (2) Status post reverse total replacement of left shoulder Priority: Primary Status: Acute (3) Carotid stenosis Priority: Secondary Status: Chronic (4) Aortic stenosis Priority: Secondary Status: Chronic (5) History of DVT (deep vein thrombosis) Priority: Secondary Status: Chronic (6) Dyslipidemia Priority: Secondary Status: Chronic (7) Hypertension Priority: Secondary Status: Chronic Expected Duration of Placement: less than 30 days Prognosis: Good Aware of Diagnosis: Patient Aware of Prognosis: Patient - Transfer Medications Home Medications: Aspirin Enteric Coated [Aspirin EC] 81 mg PO DAILY 04/10/15 [History] Dexlansoprazole [Dexilant] 60 mg PO DAILY 04/10/15 [History] Docosahexanoic Acid/Epa [Fish Oil Concentrate Softgel] 1,000 mg PO DAILY [History] Gabapentin [Neurontin] 800 mg PO TID 04/10/15 [History] Calcium Carbonate [Calcium] 1,250 mg PO DAILY 03/19/16 [History] L. Acidophilus/Pectin, [place] [Acidophilus Probiotic Capsule] 1 cap PO DAILY 04/24 [History] Lisinopril [Zestril] 40 mg PO DAILY 03/19/16 [History] Ferrous Sulfate [Iron] 325 mg PO DAILY 06/27/16 [History] hydroCHLOROthiazide [Hydrochlorothiazide] 12.5 mg PO DAILY 06/27/16 [History] Sucralfate [Carafate] 1 gm PO QID 10/03/16 [History] Allopurinol [Zyloprim 300 MG] 300 mg PO DAILY 04/10/17 [History] Metoprolol XL (24 HR) Succ [Toprol Xl] 50 mg PO DAILY 04/10/17 [History] OxyCODONE Immed Rel [Roxicodone 5 MG] 5 mg PO Q4HR PRN #24 tablet 04/10/17 [Rx] Allergies/Adverse Reactions: 3 Allergy/AdvReac Type Severity Reaction Status Date / Time ketamine AdvReac Hallucinati Verified 04/10/17 13:11 ng meperidine [From Demerol] AdvReac Hypotension Verified 04/10/17 13:11 - Respiratory Orders Smoking Cessation: Smoking cessation has been advised. For more information, call the [place] Tobacco Quit Line at 0-920-FLGV-NOW. - Ancillary Orders May use pressure relief devices daily prn, May go on MARSHALL w/family/respon alliance party w /meds at nurse discretion PRN, May consult with Dentist, Pathology Secretary, Cork Insulator Helper PRN - Mobility Orders Chair, Ambulate - Rehabiliation Orders Rehab Potential: Good Rehab Orders: ROM Exercises, Evaluation for Physical Therapy, Evaluation for Occupational Therapy Other: PT/OT. NWB to affected upper extremity. Follow Shoulder Precautions x 6 weeks. Stay in brace during activity and at night. Remove brace during exercises. ICE and elevate extremity frequently throughout the day. - Treatments Skin tear care topically daily PRN per policy List/Other: Opsite placed. Keep dressing intact until first follow up appointment. If > 50% saturated, notify office, remove dressing and place appropriate dressing back in place. Dressing is water resistant, not water-proof. OK to shower, but do not get dressing wet. - Diet Orders Regular CERTIFICATION: I certify that the transfer of the above named patient to an Extended Care Facility is necessary for the continuing treatment of the diagnosis listed. The above information is true and accurate reflection of patient's current condition. Confidential - Redisclosure prohibited without a patient's written consent.
[2017-04-12] MEDS ORDERED: Acetaminophen IV 1,000 MG/100 ML INFUS..BTL IVPB PRN (01:45)
[2017-04-12 03:57] LABS: Hematocrit 27.3 % (35.3-44.9); Hemoglobin 8.8 g/dL (11.5-15.4)
[2017-04-12] MEDS: *HR* OxyCODONE Immed Rel 5 MG TABLET PO PRN ×3 (06:10→22:24)
[2017-04-12] MEDS: Sucralfate 1 GM TABLET PO SCH ×4 (09:20→22:15)
[2017-04-12] MEDS: Metoprolol XL (24 HR) Succ 50 MG TAB.ER.24H PO SCH (09:20)
[2017-04-12] MEDS: Gabapentin 400 MG CAPSULE PO SCH ×2 (09:20→22:14)
[2017-04-12] MEDS: Lisinopril 20 MG TABLET PO SCH (09:21)
[2017-04-12] MEDS: DOCOSAHEXANOIC ACID PO SCH (09:21)
[2017-04-12] MEDS: hydroCHLOROthiazide 25 MG TABLET PO SCH (09:21)
[2017-04-12] MEDS: EPA PO SCH (09:21)
[2017-04-12] MEDS: *HR* Enoxaparin 30 MG/0.3 ML SYRINGE SQ SCH ×2 (09:21→17:16)
[2017-04-12] MEDS: (Dexlansoprazole [Dexilant] 60 MG) PO SCH (09:21)
[2017-04-12] MEDS: Aspirin Enteric Coated 81 MG Tablet PO SCH (09:21)
[2017-04-12] MEDS: Lactobacillus 1 EACH CAP.SPRINK PO SCH (09:21)
--- NOTE | 2017-04-12 10:08 | Orthopedics Progress Note ---
Date of Encounter: 04/12/17 Time of Encounter: 10:07 Subjective Interval history: Patient was seen this morning doing well without complaints. Afebrile vital signs stable. Operative extremity: Neurovascularly intact Dressing clean dry and intact Calves nontender Assessment and plan: Continue with postoperative care Objective Vital signs: Vital Signs Temp Pulse Resp BP Pulse Ox 04/12/17 06:59 97.9 F 67 16 137/72 95 04/12/17 02:00 97.9 F 76 15 122/74 94 04/11/17 17:43 98.0 F 62 15 125/68 98 04/11/17 14:35 97.5 F L 60 16 146/65 95 04/11/17 12:20 98.0 F 59 15 108/65 95 Intake and Output 04/11/17 04/12/17 04/12/17 23:59 07:59 15:59 Intake Total 100 / 100 20 / 20 Output Total 200 / 200 Balance 100 / 100 -200 / -200 20 / 20 Intake: IV Fluids 100 / 100 Ofirmev 1,000 mg/100 ml 1,000 100 / 100 mg In 100 ml @ 400 mls/hr IVPB Q6H PRN Rx#:[id number] Oral 20 / 20 Output: Urine 200 / 200 Other: Meal Dinner Breakfast Percent of Meal Consumed 80% 100% - Labs CBC & BMP: 04/12/17 03:13 04/11/17 15:27 Labs: Abnormal lab results Hgb 8.8 g/dL (11.5-15.4) L 04/12/17 03:13 Hct 27.3 % (35.3-44.9) L 04/12/17 03:13 Sodium 135 mEq/L (136-145) L 04/11/17 15:27 BUN 30 mg/dL (7-20) H 04/11/17 15:27 Est GFR (Non-Af Amer) 56 (> 60) L 04/11/17 15:27 BUN/Creatinine Ratio 31 (6-26) H 04/11/17 15:27 Glucose 154 mg/dL (70-99) H 04/11/17 15:27 Calcium 8.5 mg/dL (8.6-10.8) L 04/11/17 15:27 - VTE Documentation of Mechanical Device: Venous foot pump, device Consult Discharge Plan - Plan Additional Instructions: Discharge Instructions: Total Shoulder Please call [facility] ([phone]), your Primary Care Physician, or report to the Emergency Room if you have any of the following symptoms: Nausea, vomiting, fever greater that 101.5, swelling, chest pain, shortness of breath, increased pain/redness/drainage/odor for your incision site, numbness/ tingling, or any other concerning symptoms. ACTIVITY: Always keep your arm in the sling. Do not raise your arm away from your body. Do not use your arm to help with getting in or out of bed. No weight bearing permitted. Only perform those exercises given to you by your therapist. MEDICATIONS: Upon discharge resume your home medications. Take all the medications as prescribed. Take a stool softener if taking narcotic pain medications. Stool softeners are only effective if you drink enough fluids. Drink 6-8 glass of water or fluids a day, unless this is not allowed for another health problem. Despite using stool softeners, if you haven't had a bowel movement in 3 days, please switch to a gentle laxative. Gentle laxatives are sold over the counter. You should have a bowel movement within 24 hours, if not call the office. You will be discharged from the hospital with a prescription for pain medication. You are encouraged to decrease the use of narcotic pain medication as tolerated. Should you require a refill, please call the office. [facility] prescribes narcotic pain medication for only 4-6 weeks after surgery. If you require pain medication beyond this time period, you may be referred to your Primary Care Physician or to the Pain Clinic for further evaluation. Plan ahead for refills on pain medication as many narcotics either need to be picked up at the office or mailed. It is best to call 48-72 hours in advance of needing a prescription refill so you don't run out of medication. To help control the post-operative pain, you may take NSAIDs (Aleve,Advil, Motrin, Ibuprofen, Naprosyn) or Tylenol as prescribed on the bottle in addition to the pain medication. WOUND CARE: Leave the dressing on for 7-10 days. You may change the dressing if it becomes saturated greater than 50%. Do not get the dressing wet at anytime. Wash your hands with antibacterial soap, rinse and dry prior to any wound care. If you have bhargav the visiting nurse or rehab facility can remove the stapes 10-14 days after surgery and place steri-strips across the wound. Leave the steri-strips in place until they fall off on their own. You may let water from the shower run on top of the steri-strips. If you do not have a visiting nurse or rehab facility, you will need to return to the office at 10-14 days for the bhargav to be removed. If you have itching or redness around the dressing call the office. FOLLOW-UP: Please follow up with your surgeon in the orthopedic clinic, as scheduled Referrals: Paige López MD [Primary Care Provider] -
[2017-04-13] MEDS: *HR* OxyCODONE Immed Rel 5 MG TABLET PO PRN ×2 (03:56→08:34)
[2017-04-13] MEDS: *HR* Enoxaparin 30 MG/0.3 ML SYRINGE SQ SCH (05:36)
[2017-04-13] MEDS: Lisinopril 20 MG TABLET PO SCH (08:34)
[2017-04-13] MEDS: Gabapentin 400 MG CAPSULE PO SCH (08:34)
[2017-04-13] MEDS: Aspirin Enteric Coated 81 MG Tablet PO SCH (08:34)
[2017-04-13] MEDS: DOCOSAHEXANOIC ACID PO SCH (08:34)
[2017-04-13] MEDS: Lactobacillus 1 EACH CAP.SPRINK PO SCH (08:34)
[2017-04-13] MEDS: Metoprolol XL (24 HR) Succ 50 MG TAB.ER.24H PO SCH (08:34)
[2017-04-13] MEDS: Sucralfate 1 GM TABLET PO SCH ×2 (08:34→14:05)
[2017-04-13] MEDS: EPA PO SCH (08:34)
[2017-04-13] MEDS: (Dexlansoprazole [Dexilant] 60 MG) PO SCH (08:35)
[2017-04-13] MEDS: hydroCHLOROthiazide 25 MG TABLET PO SCH (08:35)
[2017-04-13] MEDS: Ondansetron 4 MG/2 ML VIAL IVP PRN (10:30)
--- NOTE | 2017-04-13 11:06 | Orthopedics Progress Note ---
Date of Encounter: 04/13/17 Time of Encounter: 11:05 Subjective Interval history: Patient was seen this morning doing well without complaints. Afebrile vital signs stable. Operative extremity: Neurovascularly intact Dressing clean dry and intact Calves nontender Assessment and plan: Continue with postoperative care Anticipate ECF today Objective Vital signs: Vital Signs Temp Pulse Resp BP Pulse Ox 04/13/17 07:00 98.5 F 78 16 156/78 95 04/13/17 03:42 98.3 F 75 16 169/70 94 04/12/17 23:00 99.1 F 75 18 148/74 94 04/12/17 19:28 98.4 F 71 18 154/68 95 04/12/17 15:10 98.1 F 76 14 113/56 92 Intake and Output 04/13/17 04/13/17 04/13/17 00:59 07:59 15:59 Output Total Balance Output: Urine Other: Meal Percent of Meal Consumed Weight Patient Weight 04/13/17 22:59 Weight 84.4 kg - Labs CBC & BMP: 04/12/17 03:13 04/11/17 15:27 Labs: Abnormal lab results Hgb 8.8 g/dL (11.5-15.4) L 04/12/17 03:13 Hct 27.3 % (35.3-44.9) L 04/12/17 03:13 Sodium 135 mEq/L (136-145) L 04/11/17 15:27 BUN 30 mg/dL (7-20) H 04/11/17 15:27 Est GFR (Non-Af Amer) 56 (> 60) L 04/11/17 15:27 BUN/Creatinine Ratio 31 (6-26) H 04/11/17 15:27 Glucose 154 mg/dL (70-99) H 04/11/17 15:27 Calcium 8.5 mg/dL (8.6-10.8) L 04/11/17 15:27 - VTE Documentation of Mechanical Device: Venous foot pump, device Consult Discharge Plan - Plan Additional Instructions: Discharge Instructions: Total Shoulder Please call [facility] ([phone]), your Primary Care Physician, or report to the Emergency Room if you have any of the following symptoms: Nausea, vomiting, fever greater that 101.5, swelling, chest pain, shortness of breath, increased pain/redness/drainage/odor for your incision site, numbness/ tingling, or any other concerning symptoms. ACTIVITY: Always keep your arm in the sling. Do not raise your arm away from your body. Do not use your arm to help with getting in or out of bed. No weight bearing permitted. Only perform those exercises given to you by your therapist. MEDICATIONS: Upon discharge resume your home medications. Take all the medications as prescribed. Take a stool softener if taking narcotic pain medications. Stool softeners are only effective if you drink enough fluids. Drink 6-8 glass of water or fluids a day, unless this is not allowed for another health problem. Despite using stool softeners, if you haven't had a bowel movement in 3 days, please switch to a gentle laxative. Gentle laxatives are sold over the counter. You should have a bowel movement within 24 hours, if not call the office. You will be discharged from the hospital with a prescription for pain medication. You are encouraged to decrease the use of narcotic pain medication as tolerated. Should you require a refill, please call the office. [facility] prescribes narcotic pain medication for only 4-6 weeks after surgery. If you require pain medication beyond this time period, you may be referred to your Primary Care Physician or to the Pain Clinic for further evaluation. Plan ahead for refills on pain medication as many narcotics either need to be picked up at the office or mailed. It is best to call 48-72 hours in advance of needing a prescription refill so you don't run out of medication. To help control the post-operative pain, you may take NSAIDs (Aleve,Advil, Motrin, Ibuprofen, Naprosyn) or Tylenol as prescribed on the bottle in addition to the pain medication. WOUND CARE: Leave the dressing on for 7-10 days. You may change the dressing if it becomes saturated greater than 50%. Do not get the dressing wet at anytime. Wash your hands with antibacterial soap, rinse and dry prior to any wound care. If you have bhargav the visiting nurse or rehab facility can remove the stapes 10-14 days after surgery and place steri-strips across the wound. Leave the steri-strips in place until they fall off on their own. You may let water from the shower run on top of the steri-strips. If you do not have a visiting nurse or rehab facility, you will need to return to the office at 10-14 days for the bhargav to be removed. If you have itching or redness around the dressing call the office. FOLLOW-UP: Please follow up with your surgeon in the orthopedic clinic, as scheduled Referrals: Paige López MD [Primary Care Provider] -
[2017-04-13 11:13] VITALS: BP 137/80
[2017-04-13 11:41] LABS: Hematocrit 29.5 % (35.3-44.9); Hemoglobin 9.9 g/dL (11.5-15.4)
--- NOTE | 2017-04-15 21:25 | Electrocardiograph Report ---
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
== END 2017-04-13 17:05 | disposition other institution (70) | DRG 483 ==
LOC: SAMDAY 12:32 → 3NENU 17:54
PROVIDERS: ADMIT Orthopaedic Surgery; ATTEND Orthopaedic Surgery

== ENCOUNTER 2018-10-05 09:20 | Observation (INO) ==
--- NOTE | 2018-10-05 09:42 | Emergency Department Note ---
Disposition Clinical Impression: Fall, Head injury, Abrasion Disposition: Admitted As Inpatient Condition: Good General Adult HPI - General Chief complaint: ED Fall Stated complaint: Fall facial/head injury (aspirin daily) Time Seen by Provider: 10/05/18 09:32 Source: patient, family Limitations: no limitations - History of Present Illness Pain Scale: 5 - Related Data Home Medications Medication Instructions Recorded Confirmed Aspirin Enteric Coated [Aspirin EC] 81 mg PO DAILY 04/10/15 10/05/18 Docosahexanoic Acid/Epa [Fish Oil 1,000 mg PO BID 04/10/15 10/05/18 Concentrate Softgel] Calcium Carbonate [Calcium] 1,250 mg PO DAILY 03/19/16 10/05/18 L. Acidophilus/Pectin, [place] 1 cap PO DAILY 03/19/16 10/05/18 [Acidophilus Probiotic Capsule] Metoprolol XL (24 HR) Succ [Toprol 50 mg PO DAILY 04/10/17 10/05/18 Xl] Betamethasone Dipropionate 1 appl TP BID PRN 05/22/18 10/05/18 Amlodipine Besylate 10 mg PO DAILY 10/05/18 10/05/18 Febuxostat [Uloric] 40 mg PO DAILY 10/05/18 10/05/18 Gabapentin [Neurontin] 1,600 mg PO BID 10/05/18 10/05/18 Lisinopril [Zestril] 20 mg PO DAILY 10/05/18 10/05/18 Spironolactone [Aldactone] 25 mg PO DAILY 10/05/18 10/05/18 Previous Rx's Medication Instructions Recorded Ascorbic Acid [Vitamin C] 500 mg PO DAILY tablet 04/23/17 Ferrous Sulfate [Iron] 325 mg PO DAILY #0 04/23/17 Loratadine [Allergy Relief] 10 mg PO DAILY #30 tablet 05/24/17 Allergies Allergy/AdvReac Type Severity Reaction Status Date / Time ketamine AdvReac Hallucinati Verified 10/05/18 17:22 ng meperidine [From Demerol] AdvReac Hypotension Verified 10/05/18 17:22 oxycodone [From Roxicodone] AdvReac Hallucinati Verified 10/05/18 17:22 ng Past Medical History - Past Medical History Medical history: Reports: arthritis, DVT, GERD, hyperlipidemia, hypertension, other Surgical history: Reports: knee replacement, IVC filter Psychiatric history: Reports: no psych history - Social History Smoking Status: Former smoker Smokeless Tobacco Status: No Alcohol use: Reports: none Drug use: Reports: none Physical Exam - General Limitations: no limitations General appearance: alert, in no apparent distress, appears intoxicated Course Vital Signs Temperature 98.8 F 10/05/18 09:25 Pulse Rate 102 10/05/18 09:25 Respiratory Rate 18 10/05/18 09:25 Blood Pressure 152/78 10/05/18 09:25 O2 Sat by Pulse Oximetry 98 10/05/18 09:25 Temperature 97.8 F 10/05/18 15:30 Pulse Rate 68 10/05/18 15:30 Respiratory Rate 16 10/05/18 15:30 Blood Pressure 126/57 10/05/18 15:30 O2 Sat by Pulse Oximetry 95 10/05/18 15:30 Oxygen Delivery Oxygen Delivery Room Air Medical Decision Making - Lab Data Result diagrams: 10/05/18 12:44 10/05/18 12:44 Lab Results 10/05/18 10/05/18 Range/Units 12:44 12:44 WBC 7.4 (4.3-11.1) K/mcL RBC 3.10 L (3.82-4.97) M/mcL Hgb 8.7 L (11.5-15.4) g/dL Hct 28.0 L (35.3-44.9) % MCV 90.3 (83.0-100.0) fL MCH 28.1 (28.0-33.3) pg MCHC 31.1 L (31.6-35.5) g/dL RDW 14.4 (11.5-14.5) % Plt Count 216 (140-400) K/mcL MPV 8.5 L (9.4-12.4) fL Immature Gran % 0.5 (0-4) % Seg Neutrophils % 61.3 % Lymphocytes % 24.2 % Monocytes % 9.5 % Eosinophils % 3.8 % Basophils % 0.7 % Neutrophils # 4.5 (1.6-8.9) K/mcL Lymphocytes # 1.8 (0.6-4.6) K/mcL Monocytes # 0.7 (0.0-1.3) K/mcL Eosinophils # 0.3 (0.0-0.6) K/mcL Basophils # 0.1 (0.0-0.2) K/mcL Sodium 139 (136-145) mEq/L Potassium 4.9 (3.5-5.1) mEq/L Chloride 108 H (98-107) mEq/L Carbon Dioxide 25 (23-29) mEq/L BUN 21 (8-23) mg/dL Creatinine 1.05 (0.60-1.20) mg/dL Est GFR ( Amer) > 60 (> 60) Est GFR (Non-Af Amer) 50 L (> 60) BUN/Creatinine Ratio 20 (6-26) Glucose 100 (70-105) mg/dL Calculated Osmolality 291 (280-300) Calcium 8.8 (8.6-10.3) mg/dL Troponin I < 0.03 (< 0.04) ng/mL Attestation Statement - Attestation Attestation: I examined this patient and my medical decision-making was reviewed with the Resident Physician. I agree with the documented findings, disposition and treatment plan as described except to the extent set forth below. [id number] time provided Patient sustained a mechanical fall. She tripped on her sidewalk. She has evidence of a right periorbital contusion with swelling and ecchymosis and an abrasion. He takes aspirin.
[2018-10-05] MEDS ORDERED: Ondansetron ODT 4 MG TAB.RAPDIS SL ONE (09:43)
--- NOTE | 2018-10-05 09:46 | Emergency Department Note ---
Disposition Clinical Impression: Abrasion Fall Qualifiers: Encounter type: initial encounter Qualified Code(s): W19.XXXA - Unspecified fall, initial encounter Head injury Qualifiers: Encounter type: initial encounter Qualified Code(s): S09.90XA - Unspecified injury of head, initial encounter Disposition: Admitted As Inpatient Condition: Good Instructions: Fall Prevention for Older Adults (ED) Referrals: Paige López MD [Primary Care Provider] - Forms: ED Satisfaction Letter Time of Disposition: 12:25 General Adult HPI - General Chief complaint: ED Fall Stated complaint: Fall facial/head injury (aspirin daily) Time Seen by Provider: 10/05/18 09:32 Source: patient, family Mode of arrival: ambulatory Limitations: no limitations Nursing Notes Reviewed: Yes Vital Signs Reviewed: Yes - History of Present Illness HPI Narrative: 83-year-old female persists for evaluation of a fall. States that she had a mechanical fall and tripped on a certain area of her sidewalk earlier today. On 83 [address]SA. States that she did fall and hit her head. Denies any LOC. Patient is primary complaining of anterior chest wall pain. Patient denies any nausea or vomiting. Patient does note some change in vision related to swelling around her right eye. Patient denies any neck or back pain. No abdominal pain. No focal neurologic deficit. Patient does live at home but there is close family/friends at bedside. Pain Scale: 5 - Related Data Home Medications Medication Instructions Recorded Confirmed Aspirin Enteric Coated [Aspirin EC] 81 mg PO DAILY 04/10/15 05/22/18 Dexlansoprazole [Dexilant] 60 mg PO DAILY 04/10/15 05/22/18 Docosahexanoic Acid/Epa [Fish Oil 1,000 mg PO BID 04/10/15 05/22/18 Concentrate Softgel] Gabapentin [Neurontin] 800 mg PO TID 04/10/15 05/22/18 Calcium Carbonate [Calcium] 1,250 mg PO DAILY 03/19/16 05/22/18 L. Acidophilus/Pectin, [place] 1 cap PO DAILY 03/19/16 05/22/18 [Acidophilus Probiotic Capsule] Metoprolol XL (24 HR) Succ [Toprol 50 mg PO DAILY 04/10/17 05/22/18 Xl] Amlodipine Besylate 10 mg PO DAILY 12/14/18 12/14/18 Betamethasone Dipropionate 1 appl TP BID 05/22/18 05/22/18 Previous Rx's Medication Instructions Recorded Ascorbic Acid [Vitamin C] 500 mg PO DAILY tablet 04/23/17 Ferrous Sulfate [Iron] 325 mg PO DAILY #0 04/23/17 Lisinopril [Zestril] 20 mg PO DAILY #0 04/23/17 Loratadine [Allergy Relief] 10 mg PO DAILY #30 tablet 05/24/17 Allergies Allergy/AdvReac Type Severity Reaction Status Date / Time ketamine AdvReac Hallucinati Verified 04/10/17 13:11 ng meperidine [From Demerol] AdvReac Hypotension Verified 04/10/17 13:11 oxycodone [From Roxicodone] AdvReac Hallucinati Verified 04/23/17 13:17 ng All systems ED: reviewed and negative except as stated. Cardiovascular: Reports: chest pain Respiratory: Denies: cough Gastrointestinal: Denies: abdominal pain, nausea, vomiting Past Medical History - Past Medical History Source: patient Medical history: Reports: arthritis, DVT, GERD, hyperlipidemia, hypertension, other Surgical history: Reports: knee replacement, IVC filter Psychiatric history: Reports: no psych history - Social History Smoking Status: Former smoker Smokeless Tobacco Status: No Alcohol use: Reports: none Drug use: Reports: none Physical Exam - General Limitations: no limitations General appearance: alert, in no apparent distress, appears intoxicated - Head Head exam: normocephalic, normal inspection, other (Abrasion and ecchymosis over the right eye) - Eye Eye exam: Present: normal appearance, PERRL, EOMI, periorbital swelling (Right periorbital ecchymosis with swelling), other (No hyphema.). Absent: conjunctival injection - ENT ENT exam: normal exam - Neck Neck exam: Present: normal inspection - Chest Chest inspection: Present: normal inspection, symmetric chest wall rise, tenderness - Respiratory Respiratory exam: Present: normal lung sounds bilaterally. Absent: respiratory distress - Cardiovascular Cardiovascular exam: Present: regular rate, normal rhythm, normal heart sounds - Abdominal Exam Abdominal exam: Present: soft, Non-Tender. Absent: guarding, rebound - Extremities Exam Extremities exam: Present: normal inspection. Absent: pedal edema - Back Exam Back exam: Present: normal inspection. Absent: tenderness - Neurological Exam Neurological exam: Present: alert, oriented X3, CN II-XII intact - Expanded Neurological Exam Patient oriented to: Present: person, place, time Cranial nerves: EOM function (II, III, IV, ): Normal, facial sensation (V): Normal, facial palsy (VII): Normal, spinal accessory function (XI): Normal, tongue deviation (XII): Normal Motor strength - LUE: 5/5 Motor strength - RUE: 5/5 Motor strength - LLE: 5/5 Motor strength - RLE: 5/5 Coma Scale Eye Opening: Spontaneous Coma Scale Motor Response: Obeys Commands Coma Scale Verbal Response: Oriented Coma Scale Total: 15 - Skin Skin exam: Present: warm, dry, intact, normal color Course - Reevaluation(s) Reevaluation #1: Patient seen and examined. Patient is resting comfortably. States that her pain is better controlled. Will have social work evaluate the patient for safe living. Time: 11:10 Reevaluation #2: Patient was able to ambulate with assistance to the bathroom. Time: 11:39 Reevaluation #3: Ultimately, the patient changed her mind and felt that she would be more safe being admitted. There is friends at bedside states the patient is concerned about being able to perform her ADLs. This is a reasonable recommendation given the patient's age and history of fall. Patient will get basic lab work and admission to the hospital. Time: 12:39 - Consultations Consultation #1: Social work did visit with the patient. We will attempt to arrange home health care assistance. Time: 12:12 Vital Signs Temperature 98.8 F 10/05/18 09:25 Pulse Rate 102 10/05/18 09:25 Respiratory Rate 18 10/05/18 09:25 Blood Pressure 152/78 10/05/18 09:25 O2 Sat by Pulse Oximetry 98 10/05/18 09:25 Temperature 98.8 F 10/05/18 09:25 Pulse Rate 64 10/05/18 13:09 Respiratory Rate 16 10/05/18 13:09 Blood Pressure 139/47 10/05/18 13:09 O2 Sat by Pulse Oximetry 95 10/05/18 13:09 Oxygen Delivery Oxygen Delivery Room Air Medical Decision Making - MDM Narrative Medical decision making narrative: Patient presented for a mechanical fall. States he always trips on a certain corner of her sidewalk. Patient denies any LOC. Patient's on aspirin. Patient does have visible head trauma with right-sided perioral orbital ecchymosis and swelling. On low exam there is no blood in the anterior chamber. There is no conjunctival injection. Patient denies any other pain besides anterior chest wall pain. Patient's EKG reviewed shows normal sinus rhythm with no ischemic changes. At this point there is low likelihood of any pulmonary or cardiac contusion. Patient was in the process of getting set up for home health and then she felt that she would not be able to perform some of her ADLs at home. Patient states that she would like to be observed in the hospital overnight for appropriate pain control and likely PT OT evaluation. Patient does live at home by herself. Patient is agreeable said plan of care. Patient is anemic based on basic labs but she has been anemic likely based on prior reviews. - Lab Data Result diagrams: 10/05/18 12:44 10/05/18 12:44 Lab Results 10/05/18 10/05/18 Range/Units 12:44 12:44 WBC 7.4 (4.3-11.1) K/mcL RBC 3.10 L (3.82-4.97) M/mcL Hgb 8.7 L (11.5-15.4) g/dL Hct 28.0 L (35.3-44.9) % MCV 90.3 (83.0-100.0) fL MCH 28.1 (28.0-33.3) pg MCHC 31.1 L (31.6-35.5) g/dL RDW 14.4 (11.5-14.5) % Plt Count 216 (140-400) K/mcL MPV 8.5 L (9.4-12.4) fL Immature Gran % 0.5 (0-4) % Seg Neutrophils % 61.3 % Lymphocytes % 24.2 % Monocytes % 9.5 % Eosinophils % 3.8 % Basophils % 0.7 % Neutrophils # 4.5 (1.6-8.9) K/mcL Lymphocytes # 1.8 (0.6-4.6) K/mcL Monocytes # 0.7 (0.0-1.3) K/mcL Eosinophils # 0.3 (0.0-0.6) K/mcL Basophils # 0.1 (0.0-0.2) K/mcL Sodium 139 (136-145) mEq/L Potassium 4.9 (3.5-5.1) mEq/L Chloride 108 H (98-107) mEq/L Carbon Dioxide 25 (23-29) mEq/L BUN 21 (8-23) mg/dL Creatinine 1.05 (0.60-1.20) mg/dL Est GFR ( Amer) > 60 (> 60) Est GFR (Non-Af Amer) 50 L (> 60) BUN/Creatinine Ratio 20 (6-26) Glucose 100 (70-105) mg/dL Calculated Osmolality 291 (280-300) Calcium 8.8 (8.6-10.3) mg/dL Troponin I < 0.03 (< 0.04) ng/mL - Radiology Data Radiology results reviewed: Yes I reviewed the patient's radiology results. Cervical Spine CT 10/05/18 09:41 IMPRESSION: 1.No acute abnormality of the cervical spine. D/ / Ariel Jones MD / Ariel Jones MD Interpreting Provider: Ariel Jones MD Head CT 10/05/18 09:41 IMPRESSION: No acute intracranial abnormality. D/ / Isauro Keane MD / Isauro Keane MD Interpreting Provider: Isauro Keane MD Chest X-Ray 10/05/18 09:42 IMPRESSION: No acute process. D/ / 10/05/2018 10:14:03 Isauro Keane MD / maria m Interpreting Provider: Isauro Keane MD Face CT 10/05/18 09:42 IMPRESSION: No acute traumatic injury of the facial bones. D/ / Isauro Keaen MD / Isauro Keane MD Interpreting Provider: Isauro Keane MD - EKG Data EKG #1 EKG attestation: Yes I reviewed and interpreted this EKG. EKG shows normal: sinus rhythm Rate: normal Rhythm: NSR [place]/QRS: normal Interpretation: no acute changes, nonspecific ST-T wave changes S.B.A.R. - Mike Situation: Demographics Background: Presenting Complaint Assessment: Vital Signs, Course and respsone to treatment, Patient/Family Expectation Recommendation: Barrier(s) to disposition, Recommendation based on pending studies, treatments, or consults S.B.A.RPascual Report Given to: Dr. Madonna Mckeon Repor Time: 13:43
[2018-10-05] MEDS ORDERED: *HR* FentaNYL (PF) 100 MCG/2 ML VIAL IVP ONE (12:39)
[2018-10-05 12:54] LABS: Basophils # 0.1 K/mcL (0.0-0.2); Basophils % 0.7 %; Eosinophils # 0.3 K/mcL (0.0-0.6); Eosinophils % 3.8 %; Hemoglobin 8.7 g/dL (11.5-15.4); Immature Granulocytes % 0.5 % (0-4); Lymphocytes # 1.8 K/mcL (0.6-4.6); Lymphocytes % 24.2 %; Mean Corpuscular HGB Conc 31.1 g/dL (31.6-35.5); Mean Corpuscular Hemoglobin 28.1 pg (28.0-33.3); Mean Corpuscular Volume 90.3 fL (83.0-100.0); Mean Platelet Volume 8.5 fL (9.4-12.4); Monocytes # 0.7 K/mcL (0.0-1.3); Monocytes % 9.5 %; Neutrophils # 4.5 K/mcL (1.6-8.9); Platelet Count 216 K/mcL (140-400); Red Cell Distribution Width 14.4 % (11.5-14.5); Segmented Neutrophils % 61.3 %
[2018-10-05 13:21] LABS: BUN/Creatinine Ratio 20 (6-26); Blood Urea Nitrogen 21 mg/dL (8-23); Calcium 8.8 mg/dL (8.6-10.3); Carbon Dioxide 25 mEq/L (23-29); Chloride 108 mEq/L (98-107); Glucose 100 mg/dL (70-105); Osmolality,Calculated 291 (280-300); Potassium 4.9 mEq/L (3.5-5.1); Sodium 139 mEq/L (136-145); Troponin I < 0.03 ng/mL (< 0.04); eGFR For Non-African Americans 50 (> 60)
[2018-10-05] MEDS ORDERED: Naloxone 0.4 MG/ML INJ IVP PRN (14:48)
[2018-10-05] MEDS ORDERED: Ondansetron 4 MG/2 ML VIAL IVP PRN (14:48)
[2018-10-05] MEDS ORDERED: Acetaminophen 325 MG TABLET PO PRN (14:48)
--- NOTE | 2018-10-05 15:57 | Internal Med History&Physical ---
Date of Encounter: 10/05/18 Time of Encounter: 15:49 Internal Medicine - H&P: HPI Chief complaint: Fall Admitted From: Emergency Dept Plans for Post Hospital Care: Home History of present illness: Ms. Chris is a 83 year old female with known past medical history of hypertension, hyperlipidemia, GERD, DVT not able to take anticoagulation for history of GI bleed, now she presented to ER with a fall and Rt facial injury. Patient stated while she was working on her sidewalk she had drip and fell on her right side of face and right wrist. She does have diffuse swelling over Rt orbit and frontal head area with abrasions. She denied any LOC. She did mention multiple falls at home lately. Never had any LOC. She denied any CP, however after a fall she started having pain at mid sternal region. No bruise / abrasions noticed. Past Med Surg Social Fam HX - Past Medical History Medical history: arthritis, DVT, GERD, hyperlipidemia, hypertension, other Additional medical history: gout Psychiatric history: no psych history - Past Surgical History Surgical History: knee replacement, IVC filter Additional surgical history: Fissure surgery, mel filter, bilateral knees, left shoulder, finger fusion - Social History Smoking Status: Former smoker Smokeless Tobacco Status: No Alcohol use: none Drug use: none - Family History Mother Living Status: Hx Family Neurologic Disorders: Yes Father Living Status: Hx Family Cardiac Disorders: Yes Hx Family GI Disorders: Yes Internal Medicine - H&P: Meds Aspirin Enteric Coated [Aspirin EC] 81 mg PO DAILY 04/10/15 [History] Dexlansoprazole [Dexilant] 60 mg PO DAILY 04/10/15 [History] Docosahexanoic Acid/Epa [Fish Oil Concentrate Softgel] 1,000 mg PO BID 04/10/15 [History] Gabapentin [Neurontin] 800 mg PO BID 04/10/15 [History] Calcium Carbonate [Calcium] 1,250 mg PO DAILY 03/19/16 [History] L. Acidophilus/Pectin, [place] [Acidophilus Probiotic Capsule] 1 cap PO DAILY 03/19/16 [History] Metoprolol XL (24 HR) Succ [Toprol Xl] 50 mg PO DAILY 04/10/17 [History] Ascorbic Acid [Vitamin C] 500 mg PO DAILY tablet 04/23/17 [Rx] Ferrous Sulfate [Iron] 325 mg PO DAILY #0 04/23/17 [Rx] Lisinopril [Zestril] 20 mg PO DAILY #0 04/23/17 [Rx] Loratadine [Allergy Relief] 10 mg PO DAILY #30 tablet 05/24/17 [Rx] Amlodipine Besylate 10 mg PO DAILY 05/22/18 [History] Betamethasone Dipropionate 1 appl TP BID PRN 05/22/18 [History] Allergy/AdvReac Type Severity Reaction Status Date / Time ketamine AdvReac Hallucinati Verified 04/10/17 13:11 ng meperidine [From Demerol] AdvReac Hypotension Verified 04/10/17 13:11 oxycodone [From Roxicodone] AdvReac Hallucinati Verified 04/23/17 13:17 ng All Systems PM: A 10-system review of systems was performed and is negative for pertinent findings except as documented above in the HPI. Review of systems: All the systems are reviewed everything is benign except the systems and symptoms I mentioned in the history of present illness - Constitutional Vitals: Temp Pulse Resp BP Pulse Ox 97.8 F 68 16 126/57 95 10/05/18 15:30 10/05/18 15:30 10/05/18 15:30 10/05/18 15:30 10/05/18 15:30 General appearance: Present: cooperative, mild distress (with pain), A&O X 3, answers questions appropriately Exam: a - Head Additional comments: She does have abrasion over Rt fore head near Rt orbit region. Diffuse swelling noticed over Rt orbit. Petechiae+ - Eye Additional comments: Rt eye completely close due to swelling in Rt upper and lower eye lid with the fall. - Neck Neck exam general surgery: Present: supple - Respiratory Respiratory exam: Present: decreased breath sounds. Absent: rales, respiratory distress, rhonchi, wheezes - Cardiovascular Cardiovascular exam: Present: RRR, +S1, +S2. Absent: tachycardia - GI/Abdominal GI/Abdominal exam: Present: normal bowel sounds, soft. Absent: rebound, rigid, tenderness - Extremities Exam Extremities exam: Absent: calf tenderness, tenderness - Expanded Upper Extremities Exam Forearm wrist exam: Present: abrasion (Rt forearm) - Back Exam Back exam: Absent: CVA tenderness (L), CVA tenderness (R) - Neurological Exam Neurological exam: Present: alert, oriented X3, no focal deficits, strengths equal and symetr throughout (motor strength 4/5). Absent: facial droop, speech deficit - Psychiatric Psychiatric exam: Present: normal affect, normal mood - Skin Skin exam: Present: rash (abrasions++) Internal Med - H&P Results - Labs CBC & Chem 7: 10/05/18 12:44 10/05/18 12:44 Labs: Short CBC 10/05/18 Range/Units 12:44 WBC 7.4 (4.3-11.1) K/mcL Hgb 8.7 L (11.5-15.4) g/dL Hct 28.0 L (35.3-44.9) % Plt Count 216 (140-400) K/mcL Neutrophils # 4.5 (1.6-8.9) K/mcL BMP 10/05/18 12:44 Sodium 139 Potassium 4.9 Chloride 108 H Carbon Dioxide 25 BUN 21 Creatinine 1.05 Glucose 100 Calcium 8.8 Cardiac Enzymes 10/05/18 Range/Units 12:44 Troponin I < 0.03 (< 0.04) ng/mL - Impressions ITS Impressions Cervical Spine CT 10/05/18 09:41 IMPRESSION: 1.No acute abnormality of the cervical spine. D/ / Ariel Jones MD / Ariel Jones MD Interpreting Provider: Ariel Jones MD Head CT 10/05/18 09:41 IMPRESSION: No acute intracranial abnormality. D/ / Isauro Keane MD / Isauro Keane MD Interpreting Provider: Isauro Keane MD Chest X-Ray 10/05/18 09:42 IMPRESSION: No acute process. D/ / 10/05/2018 10:14:03 Isauro Keane MD / maria m Interpreting Provider: Isauro Keane MD Face CT 10/05/18 09:42 IMPRESSION: No acute traumatic injury of the facial bones. D/ / Isauro Keane MD / Isauro Keane MD Interpreting Provider: Isauro Keane MD Hand X-Ray 10/05/18 14:14 IMPRESSION: 1. No acute osseous abnormality of the right hand or wrist. 2. Evidence of injury to the scapholunate ligament, which is new from 2017. 3. Severe osteoarthritis of the right hand. D/ / Edwin Lovett MD / Edwin Lovett MD Interpreting Provider: Edwin Lovett MD Wrist X-Ray 10/05/18 14:14 IMPRESSION: 1. No acute osseous abnormality of the right hand or wrist. 2. Evidence of injury to the scapholunate ligament, which is new from 2017. 3. Severe osteoarthritis of the right hand. D/ / Edwin Lovett MD / Edwin Lovett MD Interpreting Provider: Edwin Lovett MD - Assessment and Plan (1) Head injury Current Visit: Yes Status: Acute Assessment and plan: Place the pt into Med Surg for observation Monitor for concussion symptoms Neuro checks Q4hrs Reviewed CT of head - no ICH Reviewed Facial CT - No fractures noticed Reviewed CT of Cervical spine - no fx noticed Qualifiers: Encounter type: initial encounter Qualified Code(s): S09.90XA - Unspecified injury of head, initial encounter (2) Fall Current Visit: Yes Status: Acute Assessment and plan: Frequent falls PT / OT eval Cont symptomatic and supportive care with pain medication Qualifiers: Encounter type: initial encounter Qualified Code(s): W19.XXXA - Unspecified fall, initial encounter (3) Ambulatory dysfunction Current Visit: Yes Status: Acute Assessment and plan: May need ECF placement for short term rehab she does have b/l LE weakness PT / OT eval ordered (4) HTN (hypertension) Current Visit: No Status: Chronic Assessment and plan: Stable with home meds Will resume home meds Qualifiers: Hypertension type: essential hypertension Qualified Code(s): I10 - Essential (primary) hypertension (5) Obesity (BMI 30-39.9) Current Visit: No Status: Chronic - Time Spent With Patient Total time spent is greater than 50% in coordination of care (as documented) at patient's floor/unit and/or counseling patient:
[2018-10-05] MEDS: Ketorolac 15 MG/ML VIAL IVP PRN ×2 (16:35→23:17)
[2018-10-05] MEDS: Gabapentin 400 MG CAPSULE PO SCH ×2 (20:55)
[2018-10-05] MEDS: [UNRECOGNIZED DRUG - OTHER] TP SCH (21:03)
[2018-10-05] MEDS: DOCOSAHEXANOIC ACID PO SCH (21:03)
[2018-10-05] MEDS: EPA PO SCH (21:03)
[2018-10-06] MEDS ORDERED: Metoprolol XL (24 HR) Succ 50 MG TAB.ER.24H PO SCH (09:00)
[2018-10-06] MEDS ORDERED: Ascorbic Acid 500 MG TABLET PO SCH (09:00)
[2018-10-06] MEDS ORDERED: Lisinopril 20 MG TABLET PO SCH (09:00)
[2018-10-06] MEDS ORDERED: Aspirin Enteric Coated 81 MG Tablet PO SCH (09:00)
[2018-10-06] MEDS ORDERED: Loratadine 10 MG TABLET PO SCH (09:00)
[2018-10-06] MEDS ORDERED: amLODIPine 5 MG TABLET PO SCH (09:00)
[2018-10-06] MEDS: Gabapentin 400 MG CAPSULE PO SCH (09:15)
[2018-10-06] MEDS: [UNRECOGNIZED DRUG - OTHER] TP SCH (09:16)
[2018-10-06] MEDS: EPA PO SCH (09:16)
[2018-10-06] MEDS: DOCOSAHEXANOIC ACID PO SCH (09:16)
[2018-10-06 11:58] VITALS: BP 130/62
--- NOTE | 2018-10-06 12:36 | Orthopedic Consult Note ---
Date of Encounter: 10/06/18 Time of Encounter: 12:10 Assessment and Plan (1) Abrasion Current Visit: Yes Status: Acute Consulted on patient due to patients right hand pain after fall. There are multiple superficial abrasions noted to the ulnar side of right hand with no evidence for infection. Patients pain is directly related to each area of abrasion. Xrays showed: IMPRESSION: 1. No acute osseous abnormality of the right hand or wrist. 2. Evidence of injury to the scapholunate ligament, which is new from 2017. 3. Severe osteoarthritis of the right hand. I reviewed the xrays with Dr. North and the gapping between scaphoid and lunate appears to be more chronic in nature and not likely related to most recent fall. She has no pain to palpation over the scaphoid on exam. She has chronic aching/stiffness in hands related to OA and her pain is not any worse now after the fall that it has been chronically besides where the abrasions are and there is no evidence for new fracture at this time. I discussed with patient option to have a brace for support of the hand/wrist but she declined at this time. Continue motion as tolerated. Continue local wound care for the abrasions cleansing soap/water daily, cover as needed to prevent her from picking at the scabs as she admitted she would do. I did encourage her to not pick at the scabs as to help decrease risk for infection and promote better wound healing. Ice and elevate as needed. Follow up with Sports Medicine in 1 week for reevaluation and conservative management of OA as needed. (2) Fall Current Visit: Yes Status: Acute Qualifiers: Encounter type: initial encounter Qualified Code(s): W19.XXXA - Unspecified fall, initial encounter History of Present Illness Chief complaint: right wrist/hand pain HPI: Ms. Chris is a 83 year old female who presented to the ER yesterday after a fall. She fell at home and landed on her right side hitting her right side of face and did put out right hand to catch herself stating she has increased pain in right hand now. Pain is along ulnar side of hand where she has multiple superficial abrasions. She admits to chronic arthritis pain in her hands and wrist which causes a baseline restriction of full flexion or extension. She feels that her motion of hand and wrist currently is at her baseline and not more restrictive due to fall. Denies any new numbness or tingling. She admits to having multiple falls recently and being worked up for this. She denies any pain anywhere else besides the right eye/side of face. She was admitted for observati on due to head injury and therapy eval for safety at home. Past Med Surg Social Fam HX - Past Medical History Medical history: arthritis, DVT, GERD, hyperlipidemia, hypertension, other Additional medical history: gout Psychiatric history: no psych history - Past Surgical History Surgical History: knee replacement, IVC filter Additional surgical history: Fissure surgery, mel filter, bilateral knees, left shoulder, finger fusion - Social History Smoking Status: Former smoker Smokeless Tobacco Status: No Alcohol use: none Drug use: none - Family History Mother Living Status: Hx Family Neurologic Disorders: Yes Father Living Status: Hx Family Cardiac Disorders: Yes Hx Family GI Disorders: Yes Medications and Allergies Aspirin Enteric Coated [Aspirin EC] 81 mg PO DAILY 04/10/15 [History] Docosahexanoic Acid/Epa [Fish Oil Concentrate Softgel] 1,000 mg PO BID 04/10/15 [History] Calcium Carbonate [Calcium] 1,250 mg PO DAILY 03/19/16 [History] L. Acidophilus/Pectin, [place] [Acidophilus Probiotic Capsule] 1 cap PO DAILY 03/19/16 [History] Metoprolol XL (24 HR) Succ [Toprol Xl] 50 mg PO DAILY 04/10/17 [History] Ascorbic Acid [Vitamin C] 500 mg PO DAILY tablet 04/23/17 [Rx] Ferrous Sulfate [Iron] 325 mg PO DAILY #0 04/23/17 [Rx] Loratadine [Allergy Relief] 10 mg PO DAILY #30 tablet 05/24/17 [Rx] Betamethasone Dipropionate 1 appl TP BID PRN 05/22/18 [History] Amlodipine Besylate 10 mg PO DAILY 10/05/18 [History] Febuxostat [Uloric] 40 mg PO DAILY 10/05/18 [History] Gabapentin [Neurontin] 1,600 mg PO BID 10/05/18 [History] Lisinopril [Zestril] 20 mg PO DAILY 10/05/18 [History] Spironolactone [Aldactone] 25 mg PO DAILY 10/05/18 [History] Lidocaine 1 each TP DAILY #5 adh..patch 10/06/18 [Rx] Naproxen 500 mg PO BID PRN #20 tablet 10/06/18 [Rx] Allergy/AdvReac Type Severity Reaction Status Date / Time ketamine AdvReac Hallucinati Verified 10/05/18 17:22 ng meperidine [From Demerol] AdvReac Hypotension Verified 10/05/18 17:22 oxycodone [From Roxicodone] AdvReac Hallucinati Verified 10/05/18 17:22 ng All Systems Reviewed: The remainder of the systems were reviewed and are negative - Constitutional Constitutional: as per HPI - Cardiovascular Cardiovascular: as per HPI - Respiratory Respiratory: as per HPI - Musculoskeletal Musculoskeletal: as per HPI Physical Exam - Constitutional Vitals: Temp Pulse Resp BP Pulse Ox 97.7 F 70 19 130/62 100 10/06/18 11:57 10/06/18 11:57 10/06/18 11:57 10/06/18 11:57 10/06/18 11:57 - Wrist & Hand right Location of pain: ulnar hand (There are multiple superficial abrasions forming scabs to the ulnar side of hand at ulnar styloid, 5th MC head, 5th PIPJ and DIPJ. no open wounds, no erythema or drainage. tenderness to palpation over these sites directly. Motion of hand is limited secondary to chronic arthritis and at baseline per patient unable to make full fist or fully extend fingers or wrist. naval gunfire spotter strength weak. No scaphoid tenderness to palpation. sensation intact distally, brisk cap refill.) Results - Labs Result Diagrams: 10/05/18 12:44 10/05/18 12:44 Labs: Abnormal lab results RBC 3.10 M/mcL (3.82-4.97) L 10/05/18 12:44 Hgb 8.7 g/dL (11.5-15.4) L 10/05/18 12:44 Hct 28.0 % (35.3-44.9) L 10/05/18 12:44 MCHC 31.1 g/dL (31.6-35.5) L 10/05/18 12:44 MPV 8.5 fL (9.4-12.4) L 10/05/18 12:44 Chloride 108 mEq/L (98-107) H 10/05/18 12:44 Est GFR (Non-Af Amer) 50 (> 60) L 10/05/18 12:44 H & H 10/05/18 Range/Units 12:44 Hgb 8.7 L (11.5-15.4) g/dL Hct 28.0 L (35.3-44.9) % All other labs normal. - Diagnostic results Wrist/Hand x-ray: report reviewed, image reviewed Consult Discharge Plan - Plan Referrals: Rocío Whitten PAC [Physician Blender Conveyor Operator] - Paige López MD [Primary Care Provider] - Prescriptions: Lidocaine 1 each TP DAILY #5 adh..patch Naproxen 500 mg PO BID PRN #20 tablet PRN Reason: Pain - Attending Attestation Case and plan of care discussed with supervising physician, Dr. North, who was available for all aspects of care.
[2018-10-06] MEDS ORDERED: FluocinoNIDE 0.05% CRM 15 GM TUBE TP PRN (13:15)
--- NOTE | 2018-10-06 14:14 | Discharge Summary ---
- NOTES TO OUTPATIENT PROVIDER Notes to Outpatient Provider: f/u with PCP in one week. f/u with Orthopedics as scheduled. Orders not resulted at time of discharge: Pending orders 10/05/18 CT 3D reconstruction [CT] Routine Date of Encounter: 10/06/18 Time of Encounter: 14:11 - Discharge Diagnosis (1) Head injury Priority: Primary Status: Acute Qualifiers: Encounter type: initial encounter Qualified Code(s): S09.90XA - Unspecified injury of head, initial encounter (2) Right wrist injury Priority: Primary Status: Acute Qualifiers: Encounter type: initial encounter Qualified Code(s): S69.91XA - Unspecified injury of right wrist, hand and finger(s), initial encounter (3) Fall Priority: Primary Status: Acute Qualifiers: Encounter type: initial encounter Qualified Code(s): W19.XXXA - Unspecified fall, initial encounter (4) Ambulatory dysfunction Priority: Secondary Status: Acute (5) HTN (hypertension) Priority: Secondary Status: Chronic Qualifiers: Hypertension type: essential hypertension Qualified Code(s): I10 - Essential (primary) hypertension (6) Obesity (BMI 30-39.9) Priority: Secondary Status: Chronic Hospital course: Ms. Chris is a 83 year old female with known past medical history of hypertension, hyperlipidemia, GERD, DVT not able to take anticoagulation for history of GI bleed, now she presented to ER with a fall and Rt facial injury. Patient stated while she was working on her sidewalk she had drip and fell on her right side of face and right wrist. She does have diffuse swelling over Rt orbit and frontal head area with abrasions. She denied any LOC. She did mention multiple falls at home lately. Never had any LOC. She denied any CP, however after a fall she started having pain at mid sternal region. No bruise / abrasions noticed. She was admitted in the hospital for observation. No signs of concussion noticed. Her CT of head - no ICH, Facial CT and CT of Cervical Spine - No fractures noticed. Her Rt wrist X ray showed Evidence of injury to the scapholunate ligament, with no bony fractures. Pt was evaluated by PT / OT who recommend conservative management and out pt f/u. She was evaluated by PT / OT who recommend home health with PT / OT. - Time Spent with Patient Total time spent providing and/or coordinating discharge services: - Discharge Medications Prescriptions: New Naproxen 500 mg PO BID PRN #20 tablet PRN Reason: Pain Lidocaine 1 each TP DAILY #5 adh..patch Continued Docosahexanoic Acid/Epa [Fish Oil Concentrate Softgel] 1,000 mg PO BID Aspirin Enteric Coated [Aspirin EC] 81 mg PO DAILY L. Acidophilus/Pectin, [place] [Acidophilus Probiotic Capsule] 1 cap PO DAILY Calcium Carbonate [Calcium] 1,250 mg PO DAILY Metoprolol XL (24 HR) Succ [Toprol Xl] 50 mg PO DAILY Loratadine [Allergy Relief] 10 mg PO DAILY #30 tablet Betamethasone Dipropionate 1 appl TP BID PRN PRN Reason: Itching Spironolactone [Aldactone] 25 mg PO DAILY Lisinopril [Zestril] 20 mg PO DAILY Gabapentin [Neurontin] 1,600 mg PO BID Febuxostat [Uloric] 40 mg PO DAILY Amlodipine Besylate 10 mg PO DAILY Ascorbic Acid [Vitamin C] 500 mg PO DAILY tablet Ferrous Sulfate [Iron] 325 mg PO DAILY #0 Home Medications: Aspirin Enteric Coated [Aspirin EC] 81 mg PO DAILY 04/10/15 [History] Docosahexanoic Acid/[place]pa [Fish Oil Concentrate Softgel] 1,000 mg PO BID 04/10/15 [History] Calcium Carbonate [Calcium] 1,250 mg PO DAILY 03/19/16 [History] L. Acidophilus/Pectin, [place] [Acidophilus Probiotic Capsule] 1 cap PO DAILY 03/19/16 [History] Metoprolol XL (24 HR) Succ [Toprol Xl] 50 mg PO DAILY 04/10/17 [History] Ascorbic Acid [Vitamin C] 500 mg PO DAILY tablet 04/23/17 [Rx] Ferrous Sulfate [Iron] 325 mg PO DAILY #0 04/23/17 [Rx] Loratadine [Allergy Relief] 10 mg PO DAILY #30 tablet 05/24/17 [Rx] Betamethasone Dipropionate 1 appl TP BID PRN 05/22/18 [History] Amlodipine Besylate 10 mg PO DAILY 10/05/18 [History] Febuxostat [Uloric] 40 mg PO DAILY 10/05/18 [History] Gabapentin [Neurontin] 1,600 mg PO BID 10/05/18 [History] Lisinopril [Zestril] 20 mg PO DAILY 10/05/18 [History] Spironolactone [Aldactone] 25 mg PO DAILY 10/05/18 [History] Lidocaine 1 each TP DAILY #5 adh..patch 10/06/18 [Rx] Naproxen 500 mg PO BID PRN #20 tablet 10/06/18 [Rx] Allergies/Adverse Reactions: Allergy/AdvReac Type Severity Reaction Status Date / Time ketamine AdvReac Hallucinati Verified 10/05/18 17:22 ng meperidine [From Demerol] AdvReac Hypotension Verified 10/05/18 17:22 oxycodone [From Roxicodone] AdvReac Hallucinati Verified 10/05/18 17:22 ng Date of admission: 10/05/18 13:49 Primary care physician: Paige López MD Consults: 10/05/18 14:49 Consult to Occupational Therapy [CONS] Routine Comment: Evaluate, develop and implement POC Reason for Consult: Frequent falls Does patient have active BEDREST order?: No Is patient medically & hemodynamically stable?: Yes Patient assessed for mobility or mobilized this visit?: Yes Consult to Physical Therapy [CONS] Routine Comment: Evaluate, develop and implement POC Reason for Consult: Frequent falls Does patient have active BEDREST order?: No Is patient medically & hemodynamically stable?: Yes Patient assessed for mobility or mobilized this visit?: Yes Consult to Parachute Officer [CONS] Routine Reason for SW Consult: May need placement 10/05/18 16:26 Consult to Orthopedic Surgery [CONS] Routine Consulting Provider: [facility] Reason for Consult: R wrist injury/ scapholunate ligament injury Call Completed: Yes - Constitutional Vitals: Temp Pulse Resp BP Pulse Ox 97.7 F 70 19 130/62 100 10/06/18 11:57 10/06/18 11:57 10/06/18 11:57 10/06/18 11:57 10/06/18 11:57 General appearance: Present: cooperative, A&O X 3, answers questions appropriately Exam: a - Head Additional comments: Improving swelling over Rt frontal and Rt orbit region. She is able to open her eye little bit today. - Neck Neck exam general surgery: Present: supple - Respiratory Respiratory exam: Present: decreased breath sounds. Absent: rales, respiratory distress, rhonchi, wheezes - Cardiovascular Cardiovascular exam: Present: RRR, +S1, +S2, systolic murmur - GI/Abdominal GI/Abdominal exam: Present: normal bowel sounds, soft. Absent: rebound, rigid, tenderness - Extremities Exam Extremities exam: Absent: calf tenderness, pedal edema, tenderness - Expanded Upper Extremities Exam Forearm wrist exam: Present: abrasion, tenderness (mild tednerness over Rt wrist.. Improved swelling.. Bruises ++) - Back Exam Back exam: Absent: CVA tenderness (L), CVA tenderness (R) - Neurological Exam Neurological exam: Present: alert, oriented X3 - Psychiatric Psychiatric exam: Present: normal affect, normal mood - Skin Skin exam: Absent: rash - Patient Status Disposition: Home, Self-Care Condition: Good Overall status at discharge: patient is back to baseline - Discharge Instructions Follow Up With: Paige López MD [Primary Care Provider] - Rocío Whitten PAC [Physician Basket Maker] - - Diet and Activity Activity: as per physical therapy, increase activity as tolerated Diet: low salt diet
--- NOTE | 2018-10-06 14:29 | Physician Discharge Referral ---
Home Health/Hosp Referral Info Transfer to: Home Health Provider in Charge Post Discharge: PCP - Diagnosis (1) Head injury Priority: Primary Status: Acute (2) Right wrist injury Priority: Primary Status: Acute (3) Fall Priority: Primary Status: Acute (4) Ambulatory dysfunction Priority: Secondary Status: Acute (5) HTN (hypertension) Priority: Secondary Status: Chronic (6) Obesity (BMI 30-39.9) Priority: Secondary Status: Chronic - Respiratory Orders Smoking Cessation: Smoking cessation has been advised. For more information, call the [place] Tobacco Quit Line at 6-592-SCDJ-NOW. - Services Needed Following services are medically necessary services: Nursing, Physical Therapy, Occupational Therapy - Transfer Medications Prescriptions: Lidocaine 1 each TP DAILY #5 adh..patch Naproxen 500 mg PO BID PRN #20 tablet PRN Reason: Pain Home Medications: Aspirin Enteric Coated [Aspirin EC] 81 mg PO DAILY 04/10/15 [History] Docosahexanoic Acid/[place]pa [Fish Oil Concentrate Softgel] 1,000 mg PO BID 04/10/15 [History] Calcium Carbonate [Calcium] 1,250 mg PO DAILY 03/19/16 [History] L. Acidophilus/Pectin, [place] [Acidophilus Probiotic Capsule] 1 cap PO DAILY 03/19/16 [History] Metoprolol XL (24 HR) Succ [Toprol Xl] 50 mg PO DAILY 04/10/17 [History] Ascorbic Acid [Vitamin C] 500 mg PO DAILY tablet 04/23/17 [Rx] Ferrous Sulfate [Iron] 325 mg PO DAILY #0 04/23/17 [Rx] Loratadine [Allergy Relief] 10 mg PO DAILY #30 tablet 05/24/17 [Rx] Betamethasone Dipropionate 1 appl TP BID PRN 05/22/18 [History] Amlodipine Besylate 10 mg PO DAILY 10/05/18 [History] Febuxostat [Uloric] 40 mg PO DAILY 10/05/18 [History] Gabapentin [Neurontin] 1,600 mg PO BID 10/05/18 [History] Lisinopril [Zestril] 20 mg PO DAILY 10/05/18 [History] Spironolactone [Aldactone] 25 mg PO DAILY 10/05/18 [History] Lidocaine 1 each TP DAILY #5 adh..patch 10/06/18 [Rx] Naproxen 500 mg PO BID PRN #20 tablet 10/06/18 [Rx] Allergies/Adverse Reactions: Allergy/AdvReac Type Severity Reaction Status Date / Time ketamine AdvReac Hallucinati Verified 10/05/18 17:22 ng meperidine [From Demerol] AdvReac Hypotension Verified 10/05/18 17:22 oxycodone [From Roxicodone] AdvReac Hallucinati Verified 10/05/18 17:22 ng Certification: Further, I certify that my clinical findings support that this patient is homebound (i.e. absences from home require considerable and taxing effort and are for medical reasons or sabianism services or infrequently or short duration when for other reasons) because: Homebound Reason: Patient requires assistance of a person or device to safely leave home Attestation: My signature below is to certify that this patient is under my care and that I, or nurse practitioner, or a physician's scheduling assistant working with me, has a [id number] encounter with this patient.
--- NOTE | 2018-10-06 16:16 | Electrocardiograph Report ---
[place] [facility] Test Date: 2018-10-05 Pat Name: Yolande Chris Department: [id number] Room: [facility] Gender: F [employer]: : 1935 Requested By: Santana Parmar Order Number: [id number] Reading MD: Eliot Monet Measurements Intervals [place] Rate: 69 P: 79 [place]: 183 QRS: 24 QRSD: 94 T: 34 QT: 380 QTc: 408 Interpretive Statements Sinus rhythm Electronically Signed On 10-06-2018 16:14:45 EDT by Eliot Monet
== END 2018-10-06 16:13 | disposition home or self-care (01) ==
LOC: 3BNU 09:20 → EMEROOARM 09:20 → 3BNU 14:28
PROVIDERS: ADMIT Student in an Organized Health Care Education/Training Program; ATTEND Student in an Organized Health Care Education/Training Program